=== PATIENT | female | born 1960 | race Caucasian/White ===

== ENCOUNTER 2023-10-15 23:39 | Inpatient (IN) | payer OTHER, SELFPAY ==
[2023-10-15] VITALS (7 sets, daily range): BP systolic 76–115; BP diastolic 32–62; BMI 44.7
--- NOTE | 2023-10-15 21:36 | EDRN ---
Pt with SCHROEDER x 2 days and is concerned she may have another DVT or PE which she last had in October 2020 (R leg and b/l lungs). Pt is taking eliquis as prescribed. Pt fell 3 days ago and sprained her L ankle so she has not been moving as much as she
usually does. No recent air travel or long car rides. Pt feels generalized weakness intermittently. Pt has chronic arthritis pain in b/l legs - no new leg pain or swelling in legs. Pt denies cp, abd pain, n/v, fever/chills/cough, dizziness.
[2023-10-15] MEDS: NSS 500 IV (22:23)
[2023-10-15 22:28] LABS: % Basophils 0.3 % (0-2); % Eosinophils 0.7 % (0-6); % Immature Granulocytes 0.3 % (0-0.5); % Lymphocytes 15.7 % (20.5-51.1); % Monocytes 6.6 % (1.7-9.3); % Neutrophils 76.4 % (42.2-75.2); Absolute Eosinophils 0.1 10^3/uL (0-0.7); Absolute Lymphocytes 1.1 10^3/uL (1.2-3.4); Absolute Monocytes 0.5 10^3/uL (0.1-0.6); Absolute Neutrophils 5.2 10^3/uL (1.4-6.5); Mean Corp Hgb Conc. 32.2 g/dL (33.0-37.0); Mean Corpuscular Hgb 26.6 pg (27.0-31.0); Mean Corpuscular Volume 82.6 fL (81.0-99.0); Mean Platelet Volume 10.3 fL (7.4-10.4); Nucleated Red Blood Cells % 0 %; Platelet Count 191 10^3/uL (130-400); Red Blood Cell Count 1.84 10^6/uL (4.20-5.40); White Blood Cell Count 6.8 10^3/uL (4.8-10.8)
[2023-10-15 22:31] LABS: Hematocrit 15.2 % (37.0-47.0); Hemoglobin 4.9 g/dL (12.0-16.0)
--- NOTE | 2023-10-15 22:38 | ED.GENMED ---
History of Present Illness
General
Chief Complaint: Breathing Problem
Source: patient and family
Time Seen by Provider: 10/15/23 21:10
Travel History
Have you had any contact with someone who has COVID-19?: No
Do you have any symptoms of coronavirus? Fever > 100 degrees, chills, cough, shortness of breath, sore throat, loss of taste or smell, muscle aches, or headache?: No
History of Present Illness
History of Present Illness:
63-year-old female who presents feeling short of breath. The patient also admits to feeling fatigued. The patient states that she was worried because she has a history of pulmonary embolism. She has been on her Eliquis and has not missed any
dosages. The patient states that she has had no other symptoms. She specifically denies chest pain. No palpitations. No melena. No hematochezia. No back pain.
Past History
Past History
ED Past Medical History: HTN, Hypercholesterolemia, NIDDM (befor Gastric bypass) and Other (MICHAEL, Anemia, pulmonary embolism)
ED Past Surgical History: Bowel resection (Gastric bypass) and Gynecological (Total hysterectomy)
Social History
Tobacco: Non-smoker
Alcohol: None
Personal: Single
Living: alone
Employment: Employed
Phy Exam
Physical Exam
Physical Exam:
CONSTITUTIONAL Patient alert and oriented to person, place and time. Pale appearing. Vital signs reviewed.
HEAD atraumatic, normocephalic.
EYES eyelids normal to inspection, Pupils equally round and reactive to light, Extraocular muscles intact, Conjunctiva normal, Sclera normal.
NECK normal range of motion, Trachea midline, no jugular venous distention.
RESPIRATORY CHEST No respiratory distress noted, Chest expansion equal, Bilateral breath sounds clear.
CARDIOVASCULAR regular rate and rhythm, Heart sounds normal.
ABDOMEN abdomen nontender, Bowel sounds normal. No distention.
BACK normal inspection, no obvious deformities
UPPER EXTREMITY range of motion normal, Motor strength normal, no cyanosis, no edema.
LOWER EXTREMITY range of motion normal, Motor strength normal, no cyanosis, no edema.
NEURO Speech normal, No focal motor deficits, Alina coma scale 15, Memory normal, Cranial Nerves intact to screening exam.
SKIN skin warm, dry, and normal in color.
RECTAL EXAM melanotic stool, heme positive
Scores
Heart Failure Risk
Heart Failure Risk Score: Not Applicable
Course
Orders/Labs/Results
Orders:
Orders
10/15/23 19:50
EKG [Electrocardiogram (*1)] Urgent
Reason for Study: Chest Pain
EKG- Treatment ONCE
10/15/23 22:10
Electrocardiogram (*1) Stat
Reason for Study: Other
Other Reason for Exam: chest pain
CR Chest - 2 Views Urgent
Comment:
Reason For Exam: sob
10/15/23 22:11
0.9% Sodium Chloride 500 ml [Nss] 500 ml IV BOLUS
10/15/23 22:21
Complete Blood Count/With Diff Urgent
Comprehensive Metabolic Panel Urgent
10/15/23 22:37
* Blood Bank Products Urgent
Blood Bank Products: *Packed RBC Leuko(PRBC's)
Quantity: 2
Transfuse Today: Yes
Reason: Anemia
IV Insert/Care/Rem.- Treatment PRN
10/15/23 22:38
Pantoprazole 80 mg/100 ml Nss [Protonix] 80 mg in 100 ml IV NOW
Pantoprazole [Protonix IV] 80 mg IV NOW STA
10/15/23 22:39
Type+Screen Urgent
10/15/23 22:57
CT Abd/pel Without Iv Or Oral Urgent
Comment:
Reason For Exam: acute renal failure
10/15/23 23:33
Admit/Transfer Patient As Directed
Co-Sign Provider:
Level of Care: Inpatient admission
Assign to:: ICU
Physician / Group: ayad
Diagnosis: UGIB, LUZMARIA
Reason for Hospitalization: UGIB, LUZMARIA
Expected length of stay greater than two midnights?: Yes
ELOS- Estimated Length of Stay in days: 2
I certify the patient meets the requirements for IP care: Yes
10/15/23 23:34
Code Status As Directed
Resuscitation Status: Full Code
10/15/23 23:35
Curiel Catheter [Catheter- Indwelling] As Directed
Reason for insertion: Acute Kidney Injury
Discontinue Date/Time: 10/18/23 0600
10/15/23 23:36
Sodium Bicarbonate 50 meq IV NOW STA
Intake/ Output As Directed
Frequency: Per unit guidelines
Comment: strict intake and output monitoring
Weight As Directed
Frequency: Daily
10/15/23 23:40
GASTROINTESTINAL CONSULT Routine
Consulting Provider: Fransisco Melgar
Was physician already notified: Yes
NEPHROLOGY CONSULT Routine
Consulting Provider: Any Freeman
Was physician already notified: Yes
10/15/23 23:45
Sterile Water For Inj [Sterile Water For Injection 1000 ml] 1,000 ml Sodium Bicarbonate 150 meq IV 100 mls/hr
Abnormal Lab Results
10/15/23 10/15/23
22:21 22:39
RBC 1.84 L 10^6/uL
(4.20-5.40)
Hgb 4.9 L* g/dL
(12.0-16.0)
Hct 15.2 L* %
(37.0-47.0)
MCH 26.6 L pg
(27.0-31.0)
MCHC 32.2 L g/dL
(33.0-37.0)
RDW 18.0 H %
(11.5-14.5)
Absolute Lymphs (auto) 1.1 L 10^3/uL
(1.2-3.4)
Neutrophils % 76.4 H %
(42.2-75.2)
Lymphocytes % 15.7 L %
(20.5-51.1)
Sodium 134 L mmol/L
(135-145)
Chloride 110 H mmol/L
(98-107)
Carbon Dioxide 11 L* mmol/L
(22-30)
BUN 169 H* mg/dl
(7-17)
Creatinine 9.2 H* mg/dL
(0.6-1.0)
Glucose 124 H mg/dl
(70-99)
Calcium 7.4 L mg/dl
(8.4-10.2)
Total Protein 5.7 L g/dl
(6.3-8.2)
Albumin 3.2 L g/dl
(3.5-5.0)
Crossmatch IS Only See Detail
10/15/23 22:21
10/15/23 22:21
Vital Signs
Initial and Last Documented VS:
Initial Vital Signs
Temp Pulse Resp BP Pulse Ox
97.6 F 80 24 115/61 96
10/15/23 19:47 10/15/23 19:47 10/15/23 19:47 10/15/23 19:47 10/15/23 19:47
Last Documented Vital Signs
Temp Pulse Resp BP Pulse Ox
97.7 F 68 19 113/62 99
10/16/23 00:13 10/16/23 00:13 10/16/23 00:13 10/16/23 00:13 10/16/23 00:13
MDM/Problems Addressed
Differential Diagnosis Includes:
Pulmonary embolism, symptomatic anemia, pneumonia, ACS
MDM/Problems Addressed:
symptomatic anemia. GI BLEED.
*Pulse Oximetry
Patient hypoxic: no
*EKG
Interpreted by ED Provider?: Yes
Interpretation: normal
Rate: normal
Rhythm: sinus
Interval: normal interval
Ischemia: non-specific ST changes
*Asset Protection Greeter Interpretation
Rate: normal
Rhythm: sinus
*Critical Care Note
Total Time (30-74mins, 75-104mins- exclusive of procedures): 75 minutes
Data Reviewed
Review of Other/Old Records Reveals: Labs (Prior labs reviewed. Baseline hemoglobin 9+)
Further Testing Considered But Not Given:
Considered CT but abdomen benign.
Patient Management
Discussion with other providers: Hospitalist and Leather Repairer (Case discussed with gastroenterology)
Escalation/DeEscalation of care consider admission/obs:
61-year-old female presents with shortness of breath. Appeared to be very pale. Found to have heme positive stools that are black. Protonix initiated. Transfused 2 units. Admit
Update Note
Update Note:
Creatinine noted. Case discussed with nephrology who recommends at this time to just correct anemia and reassess. Admit.
ED Attending Note
-
Portions of this chart may have been created with voice recognition software.� Occasional wrong word or��sound alike� substitutions may have occurred due to the inherent limitations of voice recognition software.
Discharge Plan
Departure
Patient Disposition: Admit
Date of Disposition: 10/15/23
Time of Disposition: 22:39
Admit to: IMU
Presentation/result/management discussed w/ accepting MD/DO: Hospitalist
Discharge Problem:
Acute GI bleeding, Symptomatic anemia
Interventions
Interventions:
*Risk Screen - Suicide Last Done: 10/15/23 19:47
*General Assessment Last Done: 10/15/23 21:19
*Neglect/Abuse Screening Last Done: 10/15/23 19:47
ED- Fall Risk Assessment Last Done: 10/15/23 21:35
*ED COVID-19 Vaccine History Last Done: 10/15/23 19:47
ED- Cardiac Assessment Last Done: 10/15/23 21:35
ED- Pulmonary Assessment Last Done: 10/15/23 21:35
[2023-10-15] MEDS: PROTONIX IV 80 MG IV (22:50)
[2023-10-15 22:54] LABS: ALT (SGPT) 18 U/L (0-35); AST (SGOT) 17 U/L (14-36); Albumin 3.2 g/dl (3.5-5.0); Alkaline Phosphatase 96 U/L (38-126); Calcium 7.4 mg/dl (8.4-10.2); Carbon Dioxide 11 mmol/L (22-30); Chloride 110 mmol/L (98-107); Estimated Creatinine Clearance 8 ml/min; Glucose 124 mg/dl (70-99); Potassium 4.4 mmol/L (3.5-5.1); Sodium 134 mmol/L (135-145); Total Bilirubin 0.4 mg/dl (0.2-1.3); Total Protein 5.7 g/dl (6.3-8.2); eGFR 4.44
[2023-10-15] MEDS: PROTONIX 100 IV (22:58)
[2023-10-15 23:01] LABS: Blood Urea Nitrogen 169 mg/dl (7-17)
--- NOTE | 2023-10-15 23:41 | HPS.HSE ---
Family Physician
-
Family Physician: Melanie Messer
Chief Complaint
-
shortness of breath
History of Present Illness
63-year-old female with past medical history of gastric bypass, CKD, hypertension, hypercholesteremia, diabetes, obstructive sleep apnea, saddle pulmonary embolism in 2020 on Eliquis, hypothyroidism, obesity, mood disorder presenting with shortness
of breath and fatigue over the past few days. She was concerned that she was having pulmonary embolism. No chest pain or palpitations. No dizziness or syncope. No blood in the stool or black stool although she does not check. No back pain or
flank pain. No abdominal pain or nausea or vomiting or diarrhea. No fevers or chills. She states that her urine output has been decreasing recently. She denies any new medications recently.
Patient recently had a left ankle sprain a few weeks ago and has been taking naproxen twice a day as well as some ibuprofen as well.
Patient was admitted in December 2022 for renal biopsy. Patient was also found to be anemic and GI was consulted. Patient underwent endoscopy normal examination and small bowel biopsy. Outpatient capsule endoscopy was recommended which patient states
she never had. She states that no definitive diagnosis was discovered on the renal and small bowel biopsy.
She denies smoking or alcohol use.
Medical History
Past Medical History
Past Medical History: Reports Other (gastric bypass, CKD, hypertension, hypercholesteremia, diabetes, obstructive sleep apnea, saddle pulmonary embolism in 2020 on Eliquis, hypothyroidism, obesity, mood disorder)
Past Surgical History: Reports None
Social History
Tobacco: Non-smoker
Alcohol: None
Drug: None
Family History
Family History: Not pertinent
Allergies / Home Medications
Allergies reflects when Allergies were last updated in [employer].
Home Medications with original date entered in [employer]
Allergy/Medication List:
Allergies
Allergy/AdvReac Type Severity Reaction Status Date / Time
pollen Allergy 'usual Uncoded 10/15/23 19:50
allergic
reaction'
Home Medications
cholecalciferol (vitamin D3) 25 mcg (1,000 unit) tablet 1,000 units PO DAILY Supplement 11/05/20
fluticasone propionate 50 mcg/actuation nasal spray,suspension 1 spray intranasal DAILY PRN allergies/congestion 11/05/20
multivitamin with folic acid 400 mcg tablet (Tab-A-Angy) 1 tab PO DAILY Supplement 11/05/20
calcium carbonate 600 mg PO DAILY Supplement 05/29/21
metoprolol succinate 100 mg tablet,extended release 24 hr 150 mg PO DAILY Heart Disease/Condition 05/29/21
apixaban 5 mg tablet (Eliquis) 5 mg PO BID Blood Clot Prevention/Tx 12/09/22
brexpiprazole 2 mg tablet (Rexulti) 2 mg PO DAILY mental health 12/09/22
calcitriol 0.25 mcg capsule 0.25 mcg PO SUMOTU Kidney Disease 12/09/22
cartilage 40 mg-collagen II-boron 5 mg-hyaluronate sod 3.3 mg tablet (Move Free Ultra Triple Action (boron)) 1 tab PO DAILY Supplement 12/09/22
hydrochlorothiazide 25 mg tablet 25 mg PO DAILY Blood Pressure 12/09/22
levothyroxine 50 mcg tablet 50 mcg PO DAILY Thyroid 12/09/22
sodium bicarbonate 650 mg tablet 1,300 mg (2 x 650 mg) PO TID 30 days #180 tabs 12/15/22
amlodipine 5 mg tablet 5 mg PO DAILY 10/15/23
escitalopram oxalate 20 mg tablet (Lexapro) 20 mg PO DAILY 10/15/23
ibuprofen 200 mg tablet (Advil) 400 mg PO Q6HPRN PRN mild pain 10/15/23
naproxen sodium 220 mg tablet (Aleve) 220 mg PO BIDPRN PRN ankle pain 10/15/23
Review of Systems
-
History Source: Patient
A 12 point ROS was completed and negative except as noted: Yes
Constitutional: Reports No Symptoms
EENT: Reports No Symptoms
Respiratory: Reports See HPI
Cardiac: Reports No Symptoms
Abdomen/GI: Reports No Symptoms
: Reports No Symptoms
Musculoskeletal: Reports No Symptoms
Skin: Reports No Symptoms
Neurological: Reports No Symptoms
Endocrine: Reports No Symptoms
Hematologic/Lymphatic: Reports No Symptoms
Psych: Reports No Symptoms
Physical Exam
Vital Signs
Vital Signs
Temp Pulse Resp BP Pulse Ox
97.6 F 67 16 93/58 97
10/15/23 19:47 10/15/23 23:00 10/15/23 23:00 10/15/23 23:00 10/15/23 23:00
Physical Exam
General: Well Developed, Well Nourished and No Apparent Distress
HEENT: NormoCephalic, Moist mucous membranes and Atraumatic
Respiratory: Clear
Cardiac: S1/S2 and Regular Rhythm; No Murmur or Rub
GI: Soft, Non Tender, Non Distended and Normal Bowel Sounds; No Organomegaly
Rectal: Deferred by Provider
Musculoskeletal: No Clubbing, No Cyanosis and No Edema
Skin: No Rash
Neuro: Nonfocal/grossly intact
Laboratory Results
-
10/15/23 22:21
10/15/23 22:21
Laboratory Results
Total Bilirubin 0.4 mg/dl (0.2-1.3) 10/15/23 22:21
AST 17 U/L (14-36) 10/15/23 22:21
ALT 18 U/L (0-35) 10/15/23 22:21
Alkaline Phosphatase 96 U/L (38-126) 10/15/23 22:21
Data Reviewed
-
Lab Data: Labs Reviewed by me
Old Records: Reviewed
Impression/Plan
-
IMPRESSION:
PLAN:
# Symptomatic acute blood loss anemia secondary to upper GI bleed exacerbated by Eliquis/NSAID use
# History of gastric bypass
-Rectal exam showed melena
-Hemoglobin of 4.9 from 9.9 previous
-Hold Eliquis
-2 units of blood
-N.p.o.
-Protonix drip
-GI consulted
# Acute kidney injury on CKD secondary to NSAIDs
# Anion gap metabolic acidosis
# Uremia
-CT abdomen pelvis pending to rule out obstructive uropathy
-Hold hydrochlorothiazide, NSAIDs
-Bicarb pushes followed by drip
-Check I's and O's
-Curiel catheter
-Nephrology consulted
-Continue calcitriol, calcium carbonate
Recent left ankle sprain
-Hold all NSAIDs
Essential hypertension
-Hold amlodipine, hydrochlorothiazide, metoprolol due to systolic blood pressure in the 90s
Hypercholesterolemia
Type 2 diabetes
-Insulin sliding scale
Obstructive sleep apnea
-Continue CPAP
History of saddle pulmonary embolism in 2020
-Hold Eliquis
Hypothyroidism
-Continue levothyroxine
Obesity
Mood disorder
-Continue Lexapro, Rexulti
Full code
DVT prophylaxis�SCDs
N.p.o.
[2023-10-15] MEDS: SODIUM BICARBONATE 50 MEQ IV (23:51)
--- NOTE | 2023-10-15 23:57 | EDRN ---
White card sent for blood
[2023-10-16] VITALS (72 sets, daily range): BP systolic 77–158; BP diastolic 46–99; PULSE 75–88; BMI 43.1
--- NOTE | 2023-10-16 | EDRN ---
Report given to Shireen in ICU
[2023-10-16] MEDS: SODIUM BICARBONATE 1150 MEQ IV ×3 (00:20→23:07)
[2023-10-16] MEDS: PROTONIX 100 IV ×3 (01:59→16:45)
--- NOTE | 2023-10-16 02:15 | PTCARENOTE ---
Received pt from ED RN, Pt is Aox3, VSS, NSR on monitor, denies pain. PRBC infusing, Bicarb gtt and Protonix all infusing. Pt has Curiel draining clear yellow urine. No signs of overt bleeding at this time.
[2023-10-16 06:18] LABS: % Basophils 0.4 % (0-2); % Eosinophils 1.8 % (0-6); % Immature Granulocytes 0.5 % (0-0.5); % Lymphocytes 25.7 % (20.5-51.1); % Monocytes 9.8 % (1.7-9.3); % Neutrophils 61.8 % (42.2-75.2); Absolute Eosinophils 0.1 10^3/uL (0-0.7); Absolute Lymphocytes 1.4 10^3/uL (1.2-3.4); Absolute Monocytes 0.5 10^3/uL (0.1-0.6); Absolute Neutrophils 3.4 10^3/uL (1.4-6.5); Mean Corp Hgb Conc. 32.9 g/dL (33.0-37.0); Mean Corpuscular Hgb 26.8 pg (27.0-31.0); Mean Corpuscular Volume 81.3 fL (81.0-99.0); Nucleated Red Blood Cells % 0 %; Platelet Count 156 10^3/uL (130-400); Red Blood Cell Count 2.09 10^6/uL (4.20-5.40); Red Cell Dist. Width 16.8 % (11.5-14.5); White Blood Cell Count 5.5 10^3/uL (4.8-10.8)
[2023-10-16 06:22] LABS: Hemoglobin 5.6 g/dL (12.0-16.0)
[2023-10-16 06:35] LABS: ALT (SGPT) 15 U/L (0-35); AST (SGOT) 19 U/L (14-36); Albumin 2.6 g/dl (3.5-5.0); Alkaline Phosphatase 71 U/L (38-126); Calcium 6.8 mg/dl (8.4-10.2); Carbon Dioxide 13 mmol/L (22-30); Chloride 112 mmol/L (98-107); Estimated Creatinine Clearance 8 ml/min; Glucose 95 mg/dl (70-99); Magnesium 2.4 mg/dl (1.6-2.3); Phosphorus 8.9 mg/dl (2.5-4.5); Potassium 4.2 mmol/L (3.5-5.1); Sodium 136 mmol/L (135-145); Total Bilirubin 0.6 mg/dl (0.2-1.3); Total Protein 4.9 g/dl (6.3-8.2); eGFR 4.82
--- NOTE | 2023-10-16 06:37 | W.PN.UPDATE ---
Update Note
Progress Note Update
hgb level this am is 5.6 after receiving 2 units of blood. New order placed of another 2 units of blood. and repeating hgb level after administration per protocol.
[2023-10-16 06:46] LABS: Blood Urea Nitrogen 172 mg/dl (7-17)
[2023-10-16] MEDS: SYNTHROID 50 MCG PO (06:48)
[2023-10-16] MEDS: SODIUM BICARBONATE 50 MEQ IV (07:05)
[2023-10-16] MEDS: CALCIUM GLUCONATE 100 IV (07:27)
--- NOTE | 2023-10-16 07:37 | CON.GI ---
Addendum entered and electronically signed by Fransisco Melgar MD 10/16/23 11:00:
Misunderstood ER note, by report stools were black on rectal exam. Again, anemia likely multifactorial with chronic disease, new acute kidney injury, though in the setting of anticoagulation and NSAIDs with black stools GI bleeding is likely also
part of the acute drop, though is hemodynamically stable, no gross bleeding now. Etiologies would likely be from marginal ulcer versus ulcers excluded stomach given NSAID use. Will continue PPI, avoidance of NSAIDs, supportive care, resuscitation,
plan endoscopy Wednesday, sooner if signs of brisk active bleeding.
Original Note:
Consultation
-
Date/Time Consultation Performed: 10/16/23
Performing Provider: Parmjit Melgar MD
Reason for Consultation: anemia
Medical History
Chief Complaint / HPI
Chief Complaint: fatigue
History of Present Illness:
The patient is a 63-year-old female past medical history as noted who presents with fatigue, found to be profoundly anemic with hemoglobin of 4.9. She states that for the past few days she been having increasing fatigue. She has not had any
diarrhea, does not look at her stools, though does not recall seeing any black or bloody stools. She has had no abdominal pain, nausea or vomiting. In the emergency room she was Hemoccult positive by report though no melena. She does take NSAIDs
for recent sprained ankle. She has chronic iron deficiency anemia, with previously negative endoscopy and colonoscopy, thought to be malabsorption post gastric bypass, and does see hematology and gets iron and Procrit regularly. She sees renal
also closely for chronic renal sufficiency of unknown reason, and found on this admission now to have acute kidney injury with creatinine up to 9.2, bicarb down to 11 and BUN of 169. Again, she denies any nausea, vomiting, abdominal pain.
Past Medical History
Past Medical History: Other (gastric bypass, CKD, hypertension, hypercholesteremia, diabetes, obstructive sleep apnea, saddle pulmonary embolism in 2020 on Eliquis, hypothyroidism, obesity, mood disorder)
Past Surgical History: Other (gastric bypass)
Social History
Tobacco: Non-Smoker
Alcohol: None
Family History
Family History: Reviewed & Not Pertinent
Allergies / Home Medications
Allergy/AdvReac Type Severity Reaction Status Date / Time
pollen Allergy 'usual Uncoded 10/15/23 19:50
allergic
reaction'
�Medication �Instructions �Recorded
cholecalciferol (vitamin D3) 25 1,000 units PO DAILY Supplement 11/05/20
mcg (1,000 unit) tablet
fluticasone propionate 50 1 spray intranasal DAILY PRN 11/05/20
mcg/actuation nasal allergies/congestion
spray,suspension
multivitamin with folic acid 400 1 tab PO DAILY Supplement 11/05/20
mcg tablet (Tab-A-Angy)
calcium carbonate 600 mg PO DAILY Supplement 05/29/21
metoprolol succinate 100 mg 150 mg PO DAILY Heart 05/29/21
tablet,extended release 24 hr Disease/Condition
apixaban 5 mg tablet (Eliquis) 5 mg PO BID Blood Clot 12/09/22
Prevention/Tx
brexpiprazole 2 mg tablet (Rexulti) 2 mg PO DAILY mental health 12/09/22
calcitriol 0.25 mcg capsule 0.25 mcg PO SUMOTU Kidney Disease 12/09/22
cartilage 40 mg-collagen II-boron 1 tab PO DAILY Supplement 12/09/22
5 mg-hyaluronate sod 3.3 mg tablet
(Move Free Ultra Triple Action
(boron))
hydrochlorothiazide 25 mg tablet 25 mg PO DAILY Blood Pressure 12/09/22
levothyroxine 50 mcg tablet 50 mcg PO DAILY Thyroid 12/09/22
sodium bicarbonate 650 mg tablet 1,300 mg (2 x 650 mg) PO TID 30 12/15/22
days #180 tabs
amlodipine 5 mg tablet 5 mg PO DAILY 10/15/23
escitalopram oxalate 20 mg tablet 20 mg PO DAILY 10/15/23
(Lexapro)
ibuprofen 200 mg tablet (Advil) 400 mg PO Q6HPRN PRN mild pain 10/15/23
naproxen sodium 220 mg tablet 220 mg PO BIDPRN PRN ankle pain 10/15/23
(Aleve)
Review of Systems
-
All other systems: A 12 pt ROS was Negative except as stated above in HPI
Vital Signs
Temp Pulse Resp BP Pulse Ox
98.6 F 67 14 119/70 96
10/16/23 07:30 10/16/23 06:45 10/16/23 06:45 10/16/23 06:30 10/16/23 07:32
Physical Exam
Exam
General: NAD
HEENT: MMM, anicteric, no lymphadenopathy
Heart: Regular, no murmurs
Lungs: CTA bilaterally
Abdomen: normal bowel sounds, soft, no tenderness, no rebound or guarding, no masses, bruits or ascites
Extremeties: no edema
Skin: no rashes
Results
WBC 5.5 10^3/uL (4.8-10.8) 10/16/23 06:06
Hgb 5.6 g/dL (12.0-16.0) L* 10/16/23 06:06
Hct 17.0 % (37.0-47.0) L* 10/16/23 06:06
MCV 81.3 fL (81.0-99.0) 10/16/23 06:06
Plt Count 156 10^3/uL (130-400) 10/16/23 06:06
Absolute Neuts (auto) 3.4 10^3/uL (1.4-6.5) 10/16/23 06:06
APTT Cancelled 10/16/23 06:06
Sodium 136 mmol/L (135-145) 10/16/23 06:06
Potassium 4.2 mmol/L (3.5-5.1) 10/16/23 06:06
Chloride 112 mmol/L (98-107) H 10/16/23 06:06
Carbon Dioxide 13 mmol/L (22-30) L* 10/16/23 06:06
BUN 172 mg/dl (7-17) H* 10/16/23 06:06
Creatinine 8.6 mg/dL (0.6-1.0) H* 10/16/23 06:06
Calcium 6.8 mg/dl (8.4-10.2) L* 10/16/23 06:06
Total Bilirubin 0.6 mg/dl (0.2-1.3) 10/16/23 06:06
AST 19 U/L (14-36) 10/16/23 06:06
ALT 15 U/L (0-35) 10/16/23 06:06
Alkaline Phosphatase 71 U/L (38-126) 10/16/23 06:06
Diagnostic Image Results:
Prior GI Procedures:
EGD:
01/01
Impression: - Normal esophagus.
- Gastric bypass with a small-sized pouch and intact
staple line. Gastrojejunal anastomosis characterized
by healthy appearing mucosa and an intact staple line
with visible sabino.
- Normal examined jejunum. Biopsied.
Colonoscopy:
06/01
Impression: - One 5 mm polyp in the transverse colon, removed with
a cold snare. Resected and retrieved.
- Diverticulosis in the entire examined colon.
- Medium-sized lipoma at the hepatic flexure.
- Internal hemorrhoids.
Assessment / Plan
-
1. Anemia: With chronic underlying iron deficiency likely from gastric bypass, as well as anemia of chronic disease, following close with hematology for Procrit and iron, now with acute drop also in the setting of acute kidney injury and acidosis.
While she was heme positive there has not been any reports of melena, and doubt brisk active bleeding as the cause of her acute drop. This is likely more related to her acute kidney injury and anemia of chronic disease on top of her chronic anemia.
She is at risk of bleeding given her anatomy and on NSAIDs, though again no signs of brisk active bleeding. At this point we will continue PPI, okay for clear liquids today, and will continue close observation. Nephrology has been consulted, will
continue hydration and supportive care. We discussed avoiding NSAIDs as an outpatient. Pending her clinical course may plan endoscopy once Eliquis is washed out, or sooner if signs of brisk active bleeding.
-
-
Thank you for consultation and allowing me to participate in the patient's care. Please call the professional soccer player GI physician during the after hours with any questions or concerns.
[2023-10-16 07:51] LABS: INR 1.44; PT 17.4 Sec (11.4-14.6)
[2023-10-16 07:52] LABS: APTT 27.8 Sec (23.4-35.0)
[2023-10-16] MEDS: THERAGRAN 1 TABLET PO (08:23)
[2023-10-16] MEDS: VITAMIN D3 (cholecalciferol) 25 MCG PO (08:23)
[2023-10-16] MEDS: OSCAL CAL 500 500 MG PO (08:23)
[2023-10-16] MEDS: LEXAPRO 20 MG PO (08:23)
--- NOTE | 2023-10-16 09:00 | PTCARENOTE ---
Pt received in bed @ 0700. AAOx3. Denying pain, lightheadedness and dizziness. SaO2 95% on room air. Lungs clear to auscultation. Sinus rhythm on electronic device monitor. Trace LE edema. MAP > 65 without pressors. Last BP 132/74. HR 78. Obese belly.
Received NPO but upgraded to Clear Liquid diet by GI. Pt tolerating PO intake without complaint. Bed newby attempted after urge for bowel movement, but only gas. Curiel catheter draining yellow urine. Sterile Water with Sodium Bicarb 150meq infusing @
100 ml/hr. Protonix gtt infusing @ 8 mg/hr. Calcium Gluconate 2gram IV administered for Ca 6.8 on morning labs. 1st of additional 2 units of ordered blood infusing now after Hgb 5.6. No adverse reaction apparent.
--- NOTE | 2023-10-16 10:29 | W.PN.HOSP.TC ---
Today's Communication/Plan
-
Plan liquid diet
IV PPI
Transfused
IV fluids with bicarbonate
Monitor urine output.
Total Critical Care Time__50___ minutes. I was immediately available to the patient and staff. I personally examined, reviewed labs, diagnostic images/reports, interpretations, treatment plans, discussed patient care with other providers and
family or caregivers (if patient is unable to make decisions), entered orders as appropriate and documented the medical record.
Assessment / Plan
Assessment / Plan
Impression:
Presentation with severe fatigue and dyspnea.
Severe symptomatic anemia acute on chronic.
Acute kidney injury on CKD
Severe metabolic acidosis acute on chronic
Hyperkalemia.
Conditions prior to admission.
Anemia of chronic kidney disease with baseline hemoglobin 9�10
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
Submassive PE and right lower extremity DVT 2020 on Eliquis [employer]
Recent ankle sprain treated with NSAIDs
Essential hypertension
Dyslipidemia
Type 2 diabetes by history not on insulin or oral glucose lowering medications [employer]
Obstructive sleep apnea on CPAP at home
Gastric bypass surgery
Obesity with BMI 43
Mood disorder
Plan:
Severe symptomatic acute blood loss anemia with hemoglobin 4.9 upon presentation (baseline chronic anemia with hemoglobin 9-10).
Heme positive stool, although no evidence of brisk blood loss at this point.
Suspect upper GI source of gastrointestinal hemorrhage (PUD, versus gastritis versus DU) secondary to anticoagulation and NSAIDs
Hemodynamically stable.
CT scan of the abdomen pelvis without contrast showed no acute abnormalities.
Hold Eliquis and avoid further NSAIDs
Transfuse packed red blood cells to bring hemoglobin at least to 7�8
IV PPI.
GI evaluation
Clear liquid diet for now
Acute kidney injury.
Severe acute on chronic metabolic acidosis.
Uremia.
Hyperkalemia.
CKD stage IIIb baseline creatinine 3.2. 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
Chronic metabolic acidosis on oral bicarb [employer]
Nonoliguric at this point.
Hyperkalemia has been temporized.
Nephrology consultation.
Continue IV fluids with bicarbonate.
Monitor urine output.
Treat anemia
Avoid NSAIDs
Hold HCTZ
Currently no clear indication for renal replacement therapy, although remains high risk.
History of saddle, submassive pulmonary embolism and right lower extremity DVT in 2020
On Eliquis [employer]. Hold.
Monitor volume and respiratory status closely.
Essential hypertension.
Hold amlodipine, HCTZ, metoprolol given soft blood pressure.
Type 2 diabetes by history
Hemoglobin A1c pending
Insulin sliding scale
Obstructive sleep apnea
Continue CPAP.
Mood disorder
Continue Lexapro and Rexulti.
Full code
Anticipated Discharge: > 48 hours
Subjective/Interval History
-
Date of Service: October 16, 2023
Objective Data
-
Labs:
Laboratory Results
10/15/23 10/16/23 10/16/23
22:21 06:06 07:15
WBC 6.8 5.5
Hgb 4.9 L* 5.6 L*
Hct 15.2 L* 17.0 L*
Plt Count 191 156
PT 17.4 H
INR 1.44
APTT Cancelled 27.8
Sodium 134 L 136
Potassium 4.4 4.2
Chloride 110 H 112 H
Carbon Dioxide 11 L* 13 L*
BUN 169 H* 172 H*
Creatinine 9.2 H* 8.6 H*
Glucose 124 H 95
Calcium 7.4 L 6.8 L*
Total Bilirubin 0.4 0.6
AST 17 19
ALT 18 15
Alkaline Phosphatase 96 71
Vital Signs:
Vital Signs
Temp Pulse Resp BP Pulse Ox
98.7 F 77 20 132/74 95
10/16/23 08:26 10/16/23 09:00 10/16/23 09:00 10/16/23 09:00 10/16/23 09:00
I&O
10/15/23 10/16/23 10/17/23
06:59 06:59 06:59
Intake Total 1660 / 1770 1030 / 1030
Output Total 1250 / 1250 600 / 600
Balance 410 / 520 430 / 430
Physical Exam
-
General: Well Developed and No Apparent Distress
HEENT: Normocephalic, Atraumatic and Moist Mucous Membranes
Respiratory: Clear to Auscultation
Cardiac: Regular Rhythm and S1/S2; Negative Murmur, Rub or Gallop
GI: Soft, Nontender, Nondistended and Normal Bowel Sounds; Negative Organomegaly
Rectal: Deferred by Provider
Genito-urinary: Curiel (Clear yellow urine)
Musculoskeletal: No Clubbing, No Cyanosis and No Edema
Skin: Negative Rash
Neuro: Awake, Alert, Oriented, AO x 3 and Nonfocal/Grossly Intact
--- NOTE | 2023-10-16 10:37 | CON.INTV ---
Consultation
Consultation Request
Date/Time Consultation Requested: 10/16/2023
Date/Time Consultation Performed: 10/16/2023
Requesting Provider: Dr. Goss
Performing Provider: Dr. Torres Blum
Reason for Consultation: Symptomatic anemia/metabolic acidosis/acute kidney injury
Medical History
-
History of Present Illness:
62-year-old woman with past medical history significant for chronic kidney disease, anemia, prior history of bilateral pulmonary embolism and DVT, on chronic anticoagulation, hypothyroidism, hypertension.
Patient was admitted to the hospital in December 2022 for anemia. Underwent EGD. It was recommended that she undergo capsule endoscopy.
Returns to the hospital on 10/15/2023 complaining of shortness of breath and fatigue over the last few days.
Report also decreasing urinary output.
Denies any evidence of bleeding upon evaluation in the emergency room.
Has been taking naproxen for an ankle sprain.
She was found to be severely anemic with severe metabolic acidosis and worsening renal function with BUN greater than 160.
Admitted to the critical care unit for further care.
Past Medical History
Past Medical History: Other
Social History
Tobacco: Non-smoker
Alcohol: None
Drug: None
Family History
Family History: Reviewed & Not Pertinent
Allergies / Home Medications
Allergies
Allergy/AdvReac Type Severity Reaction Status Date / Time
pollen Allergy 'usual Uncoded 10/15/23 19:50
allergic
reaction'
Home Medications
�Medication �Instructions �Recorded �Confirmed �Last Taken �Type
cholecalciferol (vitamin D3) 25 1,000 units PO DAILY Supplement 11/05/20 10/15/23 10/15/23 History
mcg (1,000 unit) tablet
fluticasone propionate 50 1 spray intranasal DAILY PRN 11/05/20 10/15/23 05/22/21 History
mcg/actuation nasal allergies/congestion
spray,suspension
multivitamin with folic acid 400 1 tab PO DAILY Supplement 11/05/20 10/15/23 10/15/23 History
mcg tablet (Tab-A-Angy)
calcium carbonate 600 mg PO DAILY Supplement 05/29/21 10/15/23 10/15/23 History
metoprolol succinate 100 mg 150 mg PO DAILY Heart 05/29/21 10/15/23 10/15/23 History
tablet,extended release 24 hr Disease/Condition
apixaban 5 mg tablet (Eliquis) 5 mg PO BID Blood Clot 12/09/22 10/15/23 10/15/23 History
Prevention/Tx
brexpiprazole 2 mg tablet (Rexulti) 2 mg PO DAILY mental health 12/09/22 10/15/23 10/15/23 History
calcitriol 0.25 mcg capsule 0.25 mcg PO SUMOTU Kidney Disease 12/09/22 10/15/23 10/12/23 History
cartilage 40 mg-collagen II-boron 1 tab PO DAILY Supplement 12/09/22 10/15/23 10/15/23 History
5 mg-hyaluronate sod 3.3 mg tablet
(Move Free Ultra Triple Action
(boron))
hydrochlorothiazide 25 mg tablet 25 mg PO DAILY Blood Pressure 12/09/22 10/15/23 10/15/23 History
levothyroxine 50 mcg tablet 50 mcg PO DAILY Thyroid 12/09/22 10/15/23 10/15/23 History
sodium bicarbonate 650 mg tablet 1,300 mg (2 x 650 mg) PO TID 30 12/15/22 10/15/23 10/15/23 Rx
days #180 tabs
amlodipine 5 mg tablet 5 mg PO DAILY 10/15/23 10/15/23 10/15/23 History
escitalopram oxalate 20 mg tablet 20 mg PO DAILY 10/15/23 10/15/23 10/15/23 History
(Lexapro)
ibuprofen 200 mg tablet (Advil) 400 mg PO Q6HPRN PRN mild pain 10/15/23 10/15/23 Unknown History
naproxen sodium 220 mg tablet 220 mg PO BIDPRN PRN ankle pain 10/15/23 10/15/23 10/14/23 History
(Aleve)
Review of Systems
-
History Source: Patient
All other systems: Negative unless noted
Vitals / Labs / Diagnostic Testing
Vital Signs
Temp Pulse Resp BP Pulse Ox
98.7 F 77 20 132/74 95
10/16/23 08:26 10/16/23 09:00 10/16/23 09:00 10/16/23 09:00 10/16/23 09:00
Lab Data
10/16/23 06:06
10/16/23 06:06
Laboratory Results
10/16/23 10/16/23
06:06 07:15
PT 17.4 H
INR 1.44
APTT Cancelled 27.8
Diagnostic Testing:
Physical Exam
-
HEENT: Normocephalic
Cardiovascular: S1/S2
Respiratory: Clear and Non-Labored Respirations
GI: Soft, Non Distended and Non Tender
Neurology: Awake, Alert, AO x 3 and No Motor Deficits
Skin: Warm
General: Respiratory Distress (n), Comfortable and Other (Able to speak in full sentences)
Assessment
-
Symptomatic severe anemia due to lower GI bleed
Rectal examination showed melena
Likely GI bleed triggered by NSAID use in the setting of Eliquis
CT abdomen pelvis: 10/16/2023 reviewed showed no acute abnormalities.
Acute on chronic renal insufficiency-baseline creatinine around 3
Anion gap metabolic acidosis
Acute on chronic blood loss anemia
Conditions present prior admission:
Chronic anemia
Chronic kidney disease
Recent left ankle sprain taking NSAIDs in the outpatient
Essential hypertension
Hypercholesterolemia
Type 2 diabetes
Obstructive sleep apnea on CPAP
History of saddle pulmonary embolism in 2020 on anticoagulation
Hypothyroidism
Morbid obesity
History of gastric bypass
Mood disorder
-
Echocardiogram 02/12/2021: Report reviewed showed normal LVEF. Mild LVH. Normal right ventricular size and function. Pulmonary artery pressure 33 mmHg.
Assessment and plan:
Critically ill, with symptomatic anemia, hypotensive on admission-evidence of melena.
Worsening renal function with BUN greater than 100.
Metabolic acidosis
-
Continue bicarbonate drip
Follow laboratories later
Discussed with nephrology no plans for dialysis at this point
Monitor electrolytes
CT abdomen pelvis noted without hydronephrosis
Continue to follow urinary output closely, patient is not oliguric. Curiel in place.
-
Lower GI bleed, symptomatic anemia
Status post 1 unit of packed red blood cells
Received fourth unit of packed red blood cells.
Bowel movement with burgundy/melena earlier today. Benign abdominal exam.
Hemodynamically stable so far.
Follow H&H 1 PM.
Continue PPI
GI has evaluated the patient, patient has recently in December 2022 undergone colonoscopy and EGD, there is no signs of brisk bleeding.
Continue to follow H&H.
Eliquis on hold, plan for possible endoscopy once his washout.
-
DVT prophylaxis with SCDs
-
Critical care statement: A total of 31 minutes of critical care time was provided for this patient today. This includes management of unstable vital signs, evaluation of the patient at bedside, reviewing the patient's pertinent medical records
including radiographs, microbiology, laboratory evaluations and discussion with primary team, critical care nursing, and respiratory therapy.
--- NOTE | 2023-10-16 11:29 | W.CON.NEPH ---
Consultation
-
Date/Time Consultation Requested: 10/15/23 2340
Date/Time Consultation Performed: 10/15/23 1000
Requesting Provider: Jennifer Winters
Performing Provider: Any Trejo
Reason for Consultation: LUZMARIA, azotemia, CKD
Medical History
-
Chief Complaint: SOB
History of Present Illness:
63-year-old female with past medical history of CKD 4, baseline cr 3 fibrillary GN on RTX therapy, anemia on procrit from hematology, massive PE in 2020 on Eliquis, gastric bypass, hypertension on Amlodipine, HCTZ, BB, chr met acidosis on po
bicarb therapy, hypercholesteremia, diabetes, obstructive sleep apnea, hypothyroidism, obesity, mood disorder on Lexapro who presenting to ER last night with shortness of breath and fatigue over the past few days. Reportedly pt had ankle aprain few
weeks ago and took NSAIDs for pain control for 1.5week. Slowly she noticed becoming weak and sob which progressed. SHe noted with hb of 4.9, bicarb of 11, cr 9.2, bun 169. NOted atiya in ER and received 2 units of PRBC overnight and hb better to
5.6. No chest pain or palpitations. No dizziness or syncope. No abdominal pain or nausea or vomiting or diarrhea. Notably She states that her urine output has been decreasing recently.
Past Medical History
gastric bypass, CKD4-fbrillary GN, anemia, hypertension, hypercholesteremia, diabetes, obstructive sleep apnea, saddle pulmonary embolism in 2020 on Eliquis, hypothyroidism, obesity, mood disorder,
Social History
Tobacco: Non-Smoker
Alcohol: None
Drug: None
Family History
no ckd
Family History: Not Pertinent
Allergies / Home Medications
Allergy/AdvReac Type Severity Reaction Status Date / Time
pollen Allergy 'usual Uncoded 10/15/23 19:50
allergic
reaction'
�Medication �Instructions �Recorded �Confirmed �Type
cholecalciferol (vitamin D3) 25 1,000 units PO DAILY Supplement 11/05/20 10/15/23 History
mcg (1,000 unit) tablet
fluticasone propionate 50 1 spray intranasal DAILY PRN 11/05/20 10/15/23 History
mcg/actuation nasal allergies/congestion
spray,suspension
multivitamin with folic acid 400 1 tab PO DAILY Supplement 11/05/20 10/15/23 History
mcg tablet (Tab-A-Angy)
calcium carbonate 600 mg PO DAILY Supplement 05/29/21 10/15/23 History
metoprolol succinate 100 mg 150 mg PO DAILY Heart 05/29/21 10/15/23 History
tablet,extended release 24 hr Disease/Condition
apixaban 5 mg tablet (Eliquis) 5 mg PO BID Blood Clot 12/09/22 10/15/23 History
Prevention/Tx
brexpiprazole 2 mg tablet (Rexulti) 2 mg PO DAILY mental health 12/09/22 10/15/23 History
calcitriol 0.25 mcg capsule 0.25 mcg PO SUMOTU Kidney Disease 12/09/22 10/15/23 History
cartilage 40 mg-collagen II-boron 1 tab PO DAILY Supplement 12/09/22 10/15/23 History
5 mg-hyaluronate sod 3.3 mg tablet
(Move Free Ultra Triple Action
(boron))
hydrochlorothiazide 25 mg tablet 25 mg PO DAILY Blood Pressure 12/09/22 10/15/23 History
levothyroxine 50 mcg tablet 50 mcg PO DAILY Thyroid 12/09/22 10/15/23 History
amlodipine 5 mg tablet 5 mg PO DAILY Blood Pressure 10/15/23 10/15/23 History
escitalopram oxalate 20 mg tablet 20 mg PO DAILY Depression 10/15/23 10/15/23 History
(Lexapro)
ibuprofen 200 mg tablet (Advil) 400 mg PO Q6HPRN PRN mild pain 10/15/23 10/15/23 History
naproxen sodium 220 mg tablet 220 mg PO BIDPRN PRN ankle pain 10/15/23 10/15/23 History
(Aleve)
sodium bicarbonate 650 mg tablet 1,300 mg PO TID Electrolyte 10/16/23 10/15/23 History
Repletion
Review of Systems
-
All other complete ROS have been inquired and found negative other than stated in HPI
Physical Exam
Vital Signs
Vital Signs
Temp Pulse Resp BP Pulse Ox
99.4 F 73 20 135/77 95
10/16/23 11:15 10/16/23 11:15 10/16/23 11:15 10/16/23 11:15 10/16/23 09:00
Lab Results
WBC 5.5 10^3/uL (4.8-10.8) 10/16/23 06:06
RBC 2.09 10^6/uL (4.20-5.40) L 10/16/23 06:06
Plt Count 156 10^3/uL (130-400) 10/16/23 06:06
eGFR 4.82 10/16/23 06:06
Phosphorus 8.9 mg/dl (2.5-4.5) H 10/16/23 06:06
Albumin 2.6 g/dl (3.5-5.0) L 10/16/23 06:06
10/15/23 10/16/23 10/16/23
22:21 06:06 07:15
WBC 6.8 5.5
Hgb 4.9 L* 5.6 L*
Hct 15.2 L* 17.0 L*
Plt Count 191 156
PT 17.4 H
INR 1.44
APTT Cancelled 27.8
Sodium 134 L 136
Potassium 4.4 4.2
Chloride 110 H 112 H
Carbon Dioxide 11 L* 13 L*
BUN 169 H* 172 H*
Creatinine 9.2 H* 8.6 H*
Glucose 124 H 95
Calcium 7.4 L 6.8 L*
Total Bilirubin 0.4 0.6
AST 17 19
ALT 18 15
Alkaline Phosphatase [address] with out contrast 10/14:
FINDINGS:
Lower Chest: Lung bases are clear of an acute process. Minimal stranding, scarring or atelectasis. The heart size is mildly enlarged.
Abdomen: The liver is enlarged at 20 cm in greatest length. The patient is status post gastric bypass with Madiha-en-Y procedure. There is fullness at the GE junction, suggesting either esophageal wall thickening and esophagitis or small hiatal
hernia.
The spleen is unremarkable. Unenhanced pancreas and adrenal glands are normal in size and configuration. The gallbladder is within the limits of normal. There is no biliary ductal dilatation.
There is mild parenchymal thinning. The right kidney is slightly more horizontally oriented. No hydronephrosis. No intrarenal calcifications.
The bowel loops are normal caliber. History of previous hernia repair with mesh.
Pelvis: No free fluid or fluid collection. Diverticulosis. No CT evidence for diverticulitis. Urinary bladder well-distended. No wall thickening. Prior hysterectomy. No free air. Appendix within normal limits.
Bones: Moderate degenerative change in the lower thoracic spine with osteophyte formation. Facet arthropathy in the lower lumbar spine.
IMPRESSION:
There is no acute process in the abdomen or pelvis.
Diverticulosis. No CT evidence for diverticulitis. No free fluid or fluid collection. No free air.
Status post gastric bypass.
This report agrees with the report provided by [facility].
Physical Exam
General: Awake, Alert, Oriented, AOx3, No Distress and Nontoxic
HEENT: EOMI and Anicteric
Respiratory: Clear, Normal Excursion and Nonlabored Respirations
Cardiac: S1/S2 and Regular Rate/Rhythm
Abdomen: Soft, Nontender and Nondistended
Musculoskeletal: No Cyanosis and No Edema
Skin: No Rash
Neuro: Nonfocal/Grossly Intact
Psych: Mood/afflect pleasant, Insight/judgement good and Appropriate
Assessment/Plan
-
IMP:
Symptomatic acute blood loss anemia secondary to upper GI bleed exacerbated by Eliquis/NSAID use
History of gastric bypass
Acute kidney injury
CKD4-baseline ~3, fibrillary GN
Azotemia-uremia
Anion gap metabolic acidosis
Recent left ankle sprain
Essential hypertension
Hypercholesterolemia
Type 2 diabetes
Obstructive sleep apnea
History of saddle pulmonary embolism in 2020
Hypothyroidism
Obesity
Mood disorder
SHPTH
Hyperphosphatemia
PLan:
A/w progressive sob, severe anemia from GIB
LUZMARIA with CKD4-possible from NSAIDs induced +anemia
pt aware of not using NSAIDs
check UA, U lytes. non oliguric with sexton , no hydro on CT
severe met acidosis on bicarb gtt, follow labs
sig azotemia likely from GIB,k is normal
If pt has worsening renal function likely initiate HD though no emergent indication today
replace mikael, check I mikael , PTH
BP stable , hold anti HTN meds
d/w pt and nurisng
d/w ICU
CC time spent 35min
Data Reviewed
-
Radiology: Report Reviewed by me
CT Scan: Report Reviewed by me
Labs: Labs Reviewed by me, Discussed with Nurse and Discussed with Patient
[2023-10-16 12:40] LABS: Glucose - Point of Care 134 mg/dl (70-99)
[2023-10-16 14:10] LABS: Glycohemoglobin (HgbA1c) 6.1 % (4.0-5.6)
[2023-10-16 14:31] LABS: Ionized Calcium 0.97 mMOL/L (1.15-1.33)
[2023-10-16 14:34] LABS: Hematocrit 23.4 % (37.0-47.0)
[2023-10-16 14:41] LABS: Hemoglobin 7.7 g/dL (12.0-16.0)
[2023-10-16 14:50] LABS: Calcium 7.3 mg/dl (8.4-10.2); Carbon Dioxide 16 mmol/L (22-30); Chloride 103 mmol/L (98-107); Estimated Creatinine Clearance 9 ml/min; Glucose 141 mg/dl (70-99); Potassium 3.8 mmol/L (3.5-5.1); Sodium 135 mmol/L (135-145); eGFR 4.95
[2023-10-16 15:00] LABS: Urine Albumin Trace (Neg - Trace); Urine Bilirubin Negative (Negative); Urine Character Clear (Clear); Urine Color Yellow; Urine Glucose Negative (Negative); Urine Ketone Trace (Negative); Urine Leukocyte 2+ (Negative); Urine Nitrite Negative (Negative); Urine Occult Blood 4+ (Negative); Urine Urobilinogen Negative (Neg - 1+)
[2023-10-16 15:06] LABS: Urine Sodium 77 mmol/L (30-90)
[2023-10-16 15:07] LABS: Blood Urea Nitrogen 157 mg/dl (7-17)
--- NOTE | 2023-10-16 15:15 | PTCARENOTE ---
Assumed care of pt at 1200 with PRBC infusing. Unit completed (total of 4 units PRBC).
Pt AAOx3. Sinus rhythm. Lunchs CTA. Denies chest pain or SOB.
Ate clear liquid lunch. One dark brown BM on bedpan. Clear yellow urine via sexton.
Protonix and bicarb gtt infusing.
All other assessments unchanged.
[2023-10-16 15:25] LABS: Urine Mucus Few
[2023-10-16 15:26] LABS: Urine Bacteria Moderate (Negative); Urine Red Blood Cell 70-80 /HPF (0-2); Urine White Cell 40-50 /HPF (0-5)
[2023-10-16] MEDS: SODIUM BICARBONATE 1300 MG PO ×2 (16:46→21:48)
[2023-10-16 17:01] LABS: Glucose - Point of Care 128 mg/dl (70-99)
[2023-10-16 22:38] LABS: Glucose - Point of Care 120 mg/dl (70-99)
--- NOTE | 2023-10-16 23:32 | PTCARENOTE ---
Pt Aox3, VSS, NSR on monitor, remains on Protonix gtt and Sodium bicarb gtt. Total of 4PRBC's. Curiel in place draining adequate amounts of urine. Pt offers no complaints at this time, plan of care ongoing.
[2023-10-17] VITALS (43 sets, daily range): BP systolic 98–154; BP diastolic 78–106; PULSE 64–68; BMI 43.7
[2023-10-17] MEDS: PROTONIX 100 IV (02:56)
[2023-10-17 04:27] LABS: % Basophils 0.6 % (0-2); % Eosinophils 3.6 % (0-6); % Immature Granulocytes 0.3 % (0-0.5); % Lymphocytes 19.5 % (20.5-51.1); % Monocytes 10.9 % (1.7-9.3); % Neutrophils 65.1 % (42.2-75.2); Absolute Eosinophils 0.2 10^3/uL (0-0.7); Absolute Lymphocytes 1.3 10^3/uL (1.2-3.4); Absolute Monocytes 0.7 10^3/uL (0.1-0.6); Absolute Neutrophils 4.2 10^3/uL (1.4-6.5); Hematocrit 22.2 % (37.0-47.0); Hemoglobin 7.8 g/dL (12.0-16.0); Mean Corp Hgb Conc. 35.1 g/dL (33.0-37.0); Mean Corpuscular Hgb 27.8 pg (27.0-31.0); Mean Platelet Volume 10.7 fL (7.4-10.4); Nucleated Red Blood Cells % 0 %; Platelet Count 151 10^3/uL (130-400); Red Blood Cell Count 2.81 10^6/uL (4.20-5.40); Red Cell Dist. Width 15.9 % (11.5-14.5); White Blood Cell Count 6.4 10^3/uL (4.8-10.8)
[2023-10-17 05:51] LABS: Vitamin D, 25-OH*** 23.6 ng/mL (30-80)
[2023-10-17 06:02] LABS: Carbon Dioxide 21 mmol/L (22-30); Chloride 101 mmol/L (98-107); Estimated Creatinine Clearance 9 ml/min; Glucose 104 mg/dl (70-99); Potassium 3.6 mmol/L (3.5-5.1); Sodium 137 mmol/L (135-145); eGFR 5.25
[2023-10-17 06:21] LABS: Blood Urea Nitrogen 151 mg/dl (7-17)
[2023-10-17] MEDS: SYNTHROID 50 MCG PO (06:21)
--- NOTE | 2023-10-17 07:10 | PTCARENOTE ---
Pt assessment unchanged. Creatine 8.0 trending down, pt making urine 175-225/hr clear yellow urine. Bicarb and protonix gtt continued.
[2023-10-17] MEDS: OSCAL CAL 500 500 MG PO (07:38)
[2023-10-17] MEDS: LEXAPRO 20 MG PO (07:38)
[2023-10-17] MEDS: THERAGRAN 1 TABLET PO (07:38)
[2023-10-17] MEDS: VITAMIN D3 (cholecalciferol) 25 MCG PO (07:38)
[2023-10-17] MEDS: SODIUM BICARBONATE 1300 MG PO ×3 (07:38→20:26)
[2023-10-17] MEDS: ROCALTROL 0.25 MCG PO (07:42)
--- NOTE | 2023-10-17 07:44 | W.PN.GI.CBS2 ---
Today's Communication / Plan
-
Please see assessment and plan for details.
Assessment / Plan
-
1. Anemia: With chronic underlying iron deficiency likely from gastric bypass, as well as anemia of chronic disease, following close with hematology for Procrit and iron, now with acute drop also in the setting of acute kidney injury and acidosis
with melena likely secondary to peptic ulcer disease in the setting of NSAIDs. She had a brown bowel this morning, responded to transfusion and remained stable without any further signs of brisk bleeding, off anticoagulation. At this point we will
plan EGD tomorrow to rule out marginal ulcer or ulcer in the gastric pouch. We again stressed avoidance of NSAIDs in the future. If EGD tomorrow is negative, then likely source would be from the excluded stomach, and again discussed PPI for 2
months and avoidance of NSAIDs. If there are signs of persistent bleeding and endoscopy is negative then would likely plan colonoscopy and if still persistent bleeding and negative colonoscopy then would need transfer to tertiary center to evaluate
small bowel and excluded stomach.
Subjective
Subjective
Date of Service: October 17, 2023
Patient doing well, brown bowel movement this morning, no vomiting, fever chills or abdominal pain.
Objective
Data Reviewed
Laboratory Data:
Laboratory Results
10/17/23 03:56
10/17/23 03:56
Laboratory Results
PT 17.4 Sec (11.4-14.6) H 10/16/23 07:15
INR 1.44 10/16/23 07:15
APTT 27.8 Sec (23.4-35.0) 10/16/23 07:15
Phosphorus 8.9 mg/dl (2.5-4.5) H 10/16/23 06:06
Magnesium 2.4 mg/dl (1.6-2.3) H 10/16/23 06:06
Total Bilirubin 0.6 mg/dl (0.2-1.3) 10/16/23 06:06
AST 19 U/L (14-36) 10/16/23 06:06
ALT 15 U/L (0-35) 10/16/23 06:06
Alkaline Phosphatase 71 U/L (38-126) 10/16/23 06:06
Vital Signs and I&O:
Vital Signs
Temp Pulse Resp BP Pulse Ox
98.6 F 57 13 137/79 96
10/17/23 07:26 10/17/23 05:15 10/17/23 05:15 10/17/23 05:00 10/17/23 05:15
I&O
10/16/23 10/17/23 10/18/23
06:59 06:59 06:59
Intake Total 1660 / 1770 5160 / 5160
Output Total 1250 / 1250 4160 / 4160
Balance 410 / 520 1000 / 1000
Physical Exam
Physical Exam
General: NAD
Abdomen: normal bowel sounds, soft, no tenderness, no masses or bruits, no ascites
[2023-10-17] MEDS: NSS (PRESERVATIVE FREE) 10 ML IV ×2 (08:30→20:37)
[2023-10-17] MEDS: PROTONIX IV 40 MG IV ×2 (08:31→20:27)
--- NOTE | 2023-10-17 09:38 | W.PN.INTV ---
Today's Communication / Plan
Recommendations
For endoscopy
Follow renal function
Curiel urinary output
Continue PPI
Continue to hold anticoagulation
SCDs
Assessment
-
63-year-old woman with past medical history noted,Including gastric bypass, chronic kidney disease, hypertension, type 2 diabetes, obstructive sleep apnea, saddle pulmonary embolism on anticoagulation since 2020, morbid obesity, came complaining of
shortness of breath over the last few days. Also with decreased urinary output. She was found to be in acute renal insufficiency and also with anemia and heme positive stools/melena-patient was taking naproxen in the outpatient setting for a ankle
sprain.
Symptomatic severe anemia due to lower GI bleed
Rectal examination showed melena
Likely GI bleed triggered by NSAID use in the setting of Eliquis
CT abdomen pelvis: 10/16/2023 reviewed showed no acute abnormalities.
Acute on chronic renal insufficiency-baseline creatinine around 3
Anion gap metabolic acidosis
Acute on chronic blood loss anemia
Conditions present prior admission:
Chronic anemia
Chronic kidney disease
Recent left ankle sprain taking NSAIDs in the outpatient
Essential hypertension
Hypercholesterolemia
Type 2 diabetes
Obstructive sleep apnea on CPAP
History of saddle pulmonary embolism in 2020 on anticoagulation
Hypothyroidism
Morbid obesity
History of gastric bypass
Mood disorder
-
Echocardiogram 02/12/2021: Report reviewed showed normal LVEF. Mild LVH. Normal right ventricular size and function. Pulmonary artery pressure 33 mmHg.
Assessment and plan:
Transferred to the ICU with symptomatic anemia/acute kidney injury/metabolic acidosis.
Status post transfusion
In discussion with renal conservative management for renal insufficiency.
-
Acute kidney injury, nonoliguric. Acute on chronic component.
Patient advised not to take NSAIDs
Creatinine 8/BUN 151 - stable compared to yesterday
Continue to monitor laboratories. Potassium is normal. Acidosis improved.
Continue oral bicarbonate
Discussed with nephrology no plans for dialysis at this point
CT abdomen pelvis noted without hydronephrosis
Continue to follow urinary output closely, patient is not oliguric. Curiel in place.
-
Lower GI bleed, symptomatic anemia-melena. In the setting of anticoagulation as well as NSAID use.
Total 4 units of packed red blood cells transfused. Continue to follow H&H.
Melanotic bowel movements noted.
Hemodynamically stable so far.
Continue PPI
GI has evaluated the patient, patient has recently in December 2022 undergone colonoscopy and EGD, there is no signs of brisk bleeding.
Eliquis on hold
For EGD per gastroenterology.
-
DVT prophylaxis with SCDs
-
Case discussed with nephrology
-
Has remained hemodynamically stable, nontachycardic, benign abdominal exam. Not hyperkalemic. No evidence for arrhythmias.
At this point, we will transfer to telemetry.
Critical care team will sign off.
Subjective Dataa
Subjective Data
Date of Service:
Date of Service: October 17, 2023
Chief Complaint: Soubrette Follow Up (Acute kidney injury/acute on chronic anemia due to blood loss/GI bleed)
Subjective:
Denies nausea or vomiting.
Denies abdominal pain
Denies shortness of breath at rest
Review of Systems
Cardiopulmonary: Dyspnea (none at rest) and Chest Pain (n)
GI: Abdominal Pain (n), Nausea (n) and Vomiting (n)
Neuro: Headache (n) and Dizziness (n)
Objective Data
Data Reviewed
Vital Signs / I&O / Oxygen:
Vital Signs
Temp Pulse Resp BP Pulse Ox
98.6 F 57 13 137/79 96
10/17/23 07:26 10/17/23 05:15 10/17/23 05:15 10/17/23 05:00 10/17/23 07:30
Intake and Output
10/16/23 10/17/2310/17/24
06:59 06:59 06:59
Intake Total 1660 / 1770 5160 / 5270 310 / 310
Output Total 1250 / 1250 4160 / 4335 525 / 525
Balance 410 / 520 1000 / 935 -215 / -215
SaO2 96
Physical Exam
General: Respiratory Distress (n) and Comfortable
HEENT: Normocephalic
Cardiovascular: S1-S2
Respiratory: Clear and Non-Labored Respirations
GI: Soft and Non Distended
Neurology: Awake, Alert and Oriented
Skin: Warm
Labs/Micro/Reports
Lab Data
10/17/23 03:56
10/17/23 03:56
--- NOTE | 2023-10-17 10:37 | PTCARENOTE ---
Pt received in bed @ 0700. AAOx3. Denied pain. SaO2 96% on room air. Sinus rhythm on property assessment monitor. Trace LE edema. Palpable pedal pulses. Obese abdomen. Upgraded to full liquid diet, pt tolerated without discomfort. Large loose brown stool;
heme (+). Protonix gtt discontinued and changed to Protonix 40mg IV BID. Curiel catheter draining yellow urine. Pt asssisted OOB to chair x1.
--- NOTE | 2023-10-17 11:02 | W.PN.HOSP.TC ---
Today's Communication/Plan
-
Hold anticoagulation.
Monitor hemoglobin.
Liquid diet
For EGD tomorrow
Follow renal function and urine output.
Continue Curiel catheter.
Assessment / Plan
Assessment / Plan
Impression:
Presentation with severe fatigue and dyspnea.
Severe symptomatic anemia acute on chronic.
Acute kidney injury on CKD
Severe metabolic acidosis acute on chronic
Hyperkalemia.
Conditions prior to admission.
Anemia of chronic kidney disease with baseline hemoglobin 9�10
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
Recent ankle sprain treated with NSAIDs
Essential hypertension
Dyslipidemia
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
Obstructive sleep apnea on CPAP at home
Gastric bypass surgery
Obesity with BMI 43
Mood disorder
Plan:
Severe symptomatic acute blood loss anemia with hemoglobin 4.9 upon presentation (baseline chronic anemia with hemoglobin 9-10).
Heme positive stool, although no evidence of brisk blood loss at this point.
Suspect upper GI source of gastrointestinal hemorrhage (PUD, versus gastritis versus DU) secondary to anticoagulation and NSAIDs
Hemodynamically stable.
CT scan of the abdomen pelvis without contrast showed no acute abnormalities.
Hold Eliquis and avoid further NSAIDs
Transfused total 4 units of packed red blood cells with hemoglobin improved at 7.8
IV PPI twice daily
GI evaluation
Clear liquid diet for now
EGD on 10/17
Acute kidney injury.
Remains nonoliguric
Severe acute on chronic metabolic acidosis.
Uremia.
Hyperkalemia.
CKD stage IIIb baseline creatinine 3.2. 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
Chronic metabolic acidosis on oral bicarb BUS WASHER
Hyperkalemia has been temporized.
Nephrology consultation.
Has been off IV fluids as per renal
Oral bicarb
Monitor urine output.
Treat anemia
Avoid NSAIDs
Hold HCTZ
Currently no clear indication for renal replacement therapy, although remains high risk.
History of saddle, submassive pulmonary embolism and right lower extremity DVT in 2020
On Eliquis BUS WASHER. Hold.
Monitor volume and respiratory status closely.
Essential hypertension.
Hold amlodipine, HCTZ, metoprolol given soft blood pressure.
Type 2 diabetes by history
Hemoglobin A1c pending
Insulin sliding scale
Obstructive sleep apnea
Continue CPAP.
Mood disorder
Continue Lexapro and Rexulti.
Full code
Anticipated Discharge: > 48 hours
Subjective/Interval History
-
Date of Service: October 17, 2023
Objective Data
-
Labs:
Laboratory Results
10/17/23 10/17/23
03:56 03:56
WBC 6.4
Hgb 7.8 L
Hct 22.2 L
Plt Count 151
Sodium 137
Potassium 3.6
Chloride 101
Carbon Dioxide 21 L
BUN 151 H*
Creatinine 8.0 H*
Glucose 104 H
Calcium 7.0 L 7.0 L
Vital Signs:
Vital Signs
Temp Pulse Resp BP Pulse Ox
98.6 F 70 28 132/81 95
10/17/23 07:26 10/17/23 09:45 10/17/23 09:45 10/17/23 09:30 10/17/23 09:45
I&O
10/16/23 10/17/23 10/18/23
06:59 06:59 06:59
Intake Total 1660 / 1770 5160 / 5270 310 / 310
Output Total 1250 / 1250 4160 / 4335 525 / 525
Balance 410 / 520 1000 / 935 -215 / -215
Physical Exam
-
General: Well Developed and No Apparent Distress
HEENT: Normocephalic, Atraumatic and Moist Mucous Membranes
Respiratory: Clear to Auscultation
Cardiac: Regular Rhythm and S1/S2; Negative Murmur, Rub or Gallop
GI: Soft, Nontender, Nondistended and Normal Bowel Sounds; Negative Organomegaly
Rectal: Deferred by Provider
Genito-urinary: Curiel
Musculoskeletal: No Clubbing, No Cyanosis and No Edema
Skin: Negative Rash
Neuro: Nonfocal/Grossly Intact
--- NOTE | 2023-10-17 12:06 | W.PN.NEPH.PH ---
Today's Communication / Plan
-
observe off IVF
Assessment/Plan
-
IMP:
Symptomatic acute blood loss anemia secondary to upper GI bleed exacerbated by Eliquis/NSAID use
History of gastric bypass
Acute kidney injury
CKD4-baseline ~3, fibrillary GN
Azotemia-uremia
Anion gap metabolic acidosis
Recent left ankle sprain
Essential hypertension
Hypercholesterolemia
Type 2 diabetes
Obstructive sleep apnea
History of saddle pulmonary embolism in 2020
Hypothyroidism
Obesity
Mood disorder
SHPTH
Hyperphosphatemia
PLan:
A/w progressive sob, severe anemia from GIB
LUZMARIA with CKD4-possible from NSAIDs induced +anemia
pt aware of not using NSAIDs
UA ?UTI, pending cx, non oliguric with sexton , no hydro on CT
cr slowly improving to 8
improving met acidosis completed bicarb gtt, cont po bicarb
sig azotemia likely from GIB, improving
replace mikael, pending PTH, vit D low-increase calcitriol to daily
no emergent indication of HD
BP stable , hold anti HTN meds
possible EGD tomorrow per GI
d/w pt and nurisng
d/w ICU
-
-
Date of Service: October 17, 2023
CC / HPI / ROS
-
Chief Complaint:
LUZMARIA with CKD4
History of Present Illness:
cr slowly improving to 8, BUN better to 151
met acidosis better at 21
BP stable
hb better at 7.8
Review of Systems:
no cp or sob
feels well
brown stool
Labs
-
Labs:
WBC 6.4 10^3/uL (4.8-10.8) 10/17/23 03:56
RBC 2.81 10^6/uL (4.20-5.40) L 10/17/23 03:56
Hgb 7.8 g/dL (12.0-16.0) L 10/17/23 03:56
Hct 22.2 % (37.0-47.0) L 10/17/23 03:56
Plt Count 151 10^3/uL (130-400) 10/17/23 03:56
Sodium 137 mmol/L (135-145) 10/17/23 03:56
Potassium 3.6 mmol/L (3.5-5.1) 10/17/23 03:56
Chloride 101 mmol/L (98-107) 10/17/23 03:56
Carbon Dioxide 21 mmol/L (22-30) L 10/17/23 03:56
BUN 151 mg/dl (7-17) H* 10/17/23 03:56
Creatinine 8.0 mg/dL (0.6-1.0) H* 10/17/23 03:56
eGFR 5.25 10/17/23 03:56
Glucose 104 mg/dl (70-99) H 10/17/23 03:56
Calcium 7.0 mg/dl (8.4-10.2) L 10/17/23 03:56
Calcium 7.0 mg/dl (8.4-10.2) L 10/17/23 03:56
Phosphorus 8.9 mg/dl (2.5-4.5) H 10/16/23 06:06
Albumin 2.6 g/dl (3.5-5.0) L 10/16/23 06:06
Physical Exam
-
Vital Signs:
Vital Signs
Temp Pulse Resp BP Pulse Ox
98.6 F 70 28 132/81 95
10/17/23 11:19 10/17/23 09:45 10/17/23 09:45 10/17/23 09:30 10/17/23 09:45
Cardiovascular:: Regular rate and rhythm
Respiratory:: Bilateral: CTA
Lung Excursion:: Normal
Abdomen:: Nontender and Soft
Extremity Edema:: None: Bilateral:
Sexton Catheter: Yes
[2023-10-17 12:18] LABS: Glucose - Point of Care 147 mg/dl (70-99)
[2023-10-17 17:17] LABS: Glucose - Point of Care 129 mg/dl (70-99)
[2023-10-17 21:24] LABS: Glucose - Point of Care 123 mg/dl (70-99)
[2023-10-18] VITALS (14 sets, daily range): BP systolic 114–160; BP diastolic 72–98; PULSE 70; BMI 43.1
[2023-10-18 04:42] LABS: % Basophils 0.8 % (0-2); % Immature Granulocytes 0.3 % (0-0.5); % Lymphocytes 15.8 % (20.5-51.1); % Monocytes 13.1 % (1.7-9.3); Absolute Basophils 0.1 10^3/uL (0-0.2); Absolute Eosinophils 0.2 10^3/uL (0-0.7); Absolute Monocytes 0.8 10^3/uL (0.1-0.6); Absolute Neutrophils 4.3 10^3/uL (1.4-6.5); Hematocrit 24.7 % (37.0-47.0); Hemoglobin 8.4 g/dL (12.0-16.0); Mean Corpuscular Hgb 27.9 pg (27.0-31.0); Mean Corpuscular Volume 82.1 fL (81.0-99.0); Mean Platelet Volume 11.1 fL (7.4-10.4); Nucleated Red Blood Cells % 0 %; Platelet Count 191 10^3/uL (130-400); Red Blood Cell Count 3.01 10^6/uL (4.20-5.40); Red Cell Dist. Width 15.9 % (11.5-14.5); White Blood Cell Count 6.4 10^3/uL (4.8-10.8)
[2023-10-18 05:13] LABS: Calcium 7.1 mg/dl (8.4-10.2); Carbon Dioxide 25 mmol/L (22-30); Chloride 99 mmol/L (98-107); Estimated Creatinine Clearance 9 ml/min; Glucose 119 mg/dl (70-99); Potassium 3.5 mmol/L (3.5-5.1); Sodium 135 mmol/L (135-145)
[2023-10-18 05:23] LABS: Blood Urea Nitrogen 137 mg/dl (7-17)
[2023-10-18] MEDS: SYNTHROID 50 MCG PO (06:02)
--- NOTE | 2023-10-18 06:08 | PTCARENOTE ---
Pt Aox3, VSS, NSR on monitor, denies pain. Adequate urine output over night, Creatinine trending down, Curiel removed this morning per order. NPO since midnight for EGD today.
[2023-10-18] MEDS: SODIUM BICARBONATE 1300 MG PO ×3 (07:38→22:03)
[2023-10-18] MEDS: PROTONIX IV 40 MG IV (07:38)
[2023-10-18] MEDS: NSS (PRESERVATIVE FREE) 10 ML IV (07:38)
--- NOTE | 2023-10-18 09:03 | PTCARENOTE ---
Pt Aox3, VSS, NSR on monitor, denies pain. Met Due To Void in bedside commode, Creatinine trending down. NPO since midnight for EGD today. OOB to Chair.
--- NOTE | 2023-10-18 10:08 | CM ---
CM following re: discharge planning.
Discussed in Rounds, reviewed pt's chart, met with pt.
Pt is a 63 year old female, admitted with primary dx of UGIB, LUZMARIA.
Pt reports she lives alone in a condo, 1 steps to enter, has a cat and pt's sister is taking care of the cat while pt is here. Pt reports she has no children, has supportive sister, brother and a cousin. Pt described herself as independent in all
areas [employer], has C-pap machine and uses it at night. No mobile devices, VN or SNF history.
PCP: Perla Mckeon
Pharmacy: [facility] [place].
D/C plan: home with anticipated no needs. Family to transport at discharge.
CM will follow with discharge plan updates as hospitalization progresses
--- NOTE | 2023-10-18 11:04 | W.PN.HOSP.TC ---
Today's Communication/Plan
-
EGD.
Follow renal function and urine output while off IV fluids
Oral bicarb.
Complaints of diarrhea. Abdominal bloating. Monitor closely. If persistent consider C. difficile/stool cultures.
Assessment / Plan
Assessment / Plan
Impression:
Presentation with severe fatigue and dyspnea.
Severe symptomatic anemia acute on chronic.
Acute kidney injury on CKD
Severe metabolic acidosis acute on chronic
Hyperkalemia.
Conditions prior to admission.
Anemia of chronic kidney disease with baseline hemoglobin 9�10
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
Recent ankle sprain treated with NSAIDs
Essential hypertension
Dyslipidemia
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
Obstructive sleep apnea on CPAP at home
Gastric bypass surgery
Obesity with BMI 43
Mood disorder
Plan:
Severe symptomatic acute blood loss anemia with hemoglobin 4.9 upon presentation (baseline chronic anemia with hemoglobin 9-10).
Heme positive stool, although no evidence of brisk blood loss at this point.
Suspect upper GI source of gastrointestinal hemorrhage (PUD, versus gastritis versus DU) secondary to anticoagulation and NSAIDs
Hemodynamically stable.
CT scan of the abdomen pelvis without contrast showed no acute abnormalities.
Hold Eliquis and avoid further NSAIDs
Transfused total 4 units of packed red blood cells with hemoglobin improved at 7.8
IV PPI twice daily
GI evaluation
Clear liquid diet for now
EGD on 10/17
Acute kidney injury.
Remains nonoliguric
Severe acute on chronic metabolic acidosis.
Uremia.
Hyperkalemia.
CKD stage IIIb baseline creatinine 3.2. 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
Hyperkalemia has been temporized.
Nephrology consultation.
Has been off IV fluids as per renal
Oral bicarb
Monitor urine output.
Treat anemia
Avoid NSAIDs
Hold HCTZ
Currently no clear indication for renal replacement therapy, although remains high risk.
History of saddle, submassive pulmonary embolism and right lower extremity DVT in 2020
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 Hold.
Monitor volume and respiratory status closely.
Essential hypertension.
Hold amlodipine, HCTZ, metoprolol given soft blood pressure.
Type 2 diabetes by history
Hemoglobin A1c pending
Insulin sliding scale
Obstructive sleep apnea
Continue CPAP.
Mood disorder
Continue Lexapro and Rexulti.
Full code
Anticipated Discharge: > 48 hours
Subjective/Interval History
-
Date of Service: October 18, 2023
Objective Data
-
Labs:
Laboratory Results
10/18/23
04:28
WBC 6.4
Hgb 8.4 L
Hct 24.7 L
Plt Count 191 D
Sodium 135
Potassium 3.5
Chloride 99
Carbon Dioxide 25
BUN 137 H*
Creatinine 7.7 H*
Glucose 119 H
Calcium 7.1 L
Vital Signs:
Vital Signs
Temp Pulse Resp BP Pulse Ox
98.9 F 62 17 160/76 94
10/18/23 11:01 10/18/23 08:45 10/18/23 08:45 10/18/23 07:56 10/18/23 08:45
I&O
10/17/23 10/18/23 10/19/23
06:59 06:59 06:59
Intake Total 5160 / 5270 2710 / 2710
Output Total 4160 / 4335 3450 / 3450 300 / 300
Balance 1000 / 935 -740 / -740 -300 / -300
Physical Exam
-
General: Well Developed and No Apparent Distress
HEENT: Normocephalic, Atraumatic and Moist Mucous Membranes
Respiratory: Clear to Auscultation
Cardiac: Regular Rhythm and S1/S2; Negative Murmur, Rub or Gallop
GI: Soft, Nontender, Nondistended and Normal Bowel Sounds; Negative Organomegaly
Rectal: Deferred by Provider
Musculoskeletal: No Clubbing, No Cyanosis and No Edema
Skin: Negative Rash
Neuro: Nonfocal/Grossly Intact
--- NOTE | 2023-10-18 11:18 | PTCARENOTE ---
Pt to GI lab for EGD via stretcher.
[2023-10-18] MEDS: OSCAL CAL 500 500 MG PO (12:04)
[2023-10-18] MEDS: LEXAPRO 20 MG PO (12:04)
[2023-10-18] MEDS: THERAGRAN 1 TABLET PO (12:04)
[2023-10-18] MEDS: VITAMIN D3 (cholecalciferol) 25 MCG PO (12:05)
[2023-10-18] MEDS: ROCALTROL 0.25 MCG PO (12:06)
[2023-10-18 12:14] LABS: Glucose - Point of Care 131 mg/dl (70-99)
--- NOTE | 2023-10-18 15:07 | W.PN.NEPH.PH ---
Today's Communication / Plan
-
off IVF
continue to trend kidney function
oral bicarb
Assessment/Plan
-
IMP:
Symptomatic acute blood loss anemia secondary to upper GI bleed exacerbated by Eliquis/NSAID use
History of gastric bypass
Acute kidney injury
CKD4-baseline ~3, fibrillary GN
Azotemia-uremia
Anion gap metabolic acidosis
Recent left ankle sprain
Essential hypertension
Hypercholesterolemia
Type 2 diabetes
Obstructive sleep apnea
History of saddle pulmonary embolism in 2020
Hypothyroidism
Obesity
Mood disorder
SHPTH
Hyperphosphatemia
PLan:
A/w progressive sob, severe anemia from GIB
LUZMARIA with CKD4-possible from NSAIDs induced +anemia
pt aware of not using NSAIDs
UA ?UTI, pending cx, non oliguric with sexton , no hydro on CT
cr slowly improving to 7.7
improving met acidosis completed bicarb gtt, cont po bicarb
sig azotemia likely from GIB, improving
replace mikael, pending PTH, vit D low-increase calcitriol to daily
no emergent indication of HD
BP stable, hold anti HTN meds
EGD normal, thought to be ulcer in excluded stomach causing bleeding.
d/w pt and nurisng
-
-
Date of Service: October 18, 2023
CC / HPI / ROS
-
Chief Complaint:
LUZMARIA with CKD4
History of Present Illness:
cr slowly improving to 7.7, BUN better to 137
met acidosis better at 25
BP stable
hb better at 8.4
Review of Systems:
no cp or sob
feels well
brown stool
Labs
-
Labs:
WBC 6.4 10^3/uL (4.8-10.8) 10/18/23 04:28
RBC 3.01 10^6/uL (4.20-5.40) L 10/18/23 04:28
Hgb 8.4 g/dL (12.0-16.0) L 10/18/23 04:28
Hct 24.7 % (37.0-47.0) L 10/18/23 04:28
Plt Count 191 10^3/uL (130-400) D 10/18/23 04:28
Sodium 135 mmol/L (135-145) 10/18/23 04:28
Potassium 3.5 mmol/L (3.5-5.1) 10/18/23 04:28
Chloride 99 mmol/L (98-107) 10/18/23 04:28
Carbon Dioxide 25 mmol/L (22-30) 10/18/23 04:28
BUN 137 mg/dl (7-17) H* 10/18/23 04:28
Creatinine 7.7 mg/dL (0.6-1.0) H* 10/18/23 04:28
eGFR 5.50 10/18/23 04:28
Glucose 119 mg/dl (70-99) H 10/18/23 04:28
Calcium 7.1 mg/dl (8.4-10.2) L 10/18/23 04:28
Phosphorus 8.9 mg/dl (2.5-4.5) H 10/16/23 06:06
Albumin 2.6 g/dl (3.5-5.0) L 10/16/23 06:06
Physical Exam
-
Vital Signs:
Vital Signs
Temp Pulse Resp BP Pulse Ox
98.7 F 73 17 140/81 94
10/18/23 15:00 10/18/23 13:45 10/18/23 13:45 10/18/23 12:30 10/18/23 11:00
Cardiovascular:: Regular rate and rhythm
Respiratory:: Bilateral: Coarse
Lung Excursion:: Normal
Abdomen:: Distended
Bowel Sounds:: Normal
Extremity Edema:: None: Bilateral:
Sexton Catheter: Yes
--- NOTE | 2023-10-18 16:50 | PTCARENOTE ---
Pt to wheelchair and escorted to [facility].
--- NOTE | 2023-10-18 17:15 | PTCARENOTE ---
Received pt from ICU,Report from Dionicio RN.Assessment unchanged, Pt VSS 97% on RA. NSR on tele, Pt oriented to room, call evans within reach, plan of care ongoing.
[2023-10-18] MEDS: PROTONIX 40 MG PO (20:03)
[2023-10-19 03:27] VITALS: BP 132/73
[2023-10-19] MEDS: SYNTHROID 50 MCG PO (05:41)
[2023-10-19 06:00] VITALS: BMI 41.7
[2023-10-19 06:04] LABS: % Basophils 0.7 % (0-2); % Eosinophils 3.4 % (0-6); % Immature Granulocytes 0.5 % (0-0.5); % Lymphocytes 18.3 % (20.5-51.1); % Monocytes 11.6 % (1.7-9.3); % Neutrophils 65.5 % (42.2-75.2); Absolute Basophils 0.1 10^3/uL (0-0.2); Absolute Eosinophils 0.3 10^3/uL (0-0.7); Absolute Lymphocytes 1.4 10^3/uL (1.2-3.4); Absolute Monocytes 0.9 10^3/uL (0.1-0.6); Absolute Neutrophils 4.9 10^3/uL (1.4-6.5); Hematocrit 27.6 % (37.0-47.0); Mean Corp Hgb Conc. 32.6 g/dL (33.0-37.0); Mean Corpuscular Hgb 27.2 pg (27.0-31.0); Mean Corpuscular Volume 83.4 fL (81.0-99.0); Mean Platelet Volume 10.9 fL (7.4-10.4); Nucleated Red Blood Cells % 0 %; Platelet Count 221 10^3/uL (130-400); Red Blood Cell Count 3.31 10^6/uL (4.20-5.40); White Blood Cell Count 7.4 10^3/uL (4.8-10.8)
[2023-10-19 06:37] LABS: Blood Urea Nitrogen 118 mg/dl (7-17); Calcium 7.4 mg/dl (8.4-10.2); Carbon Dioxide 27 mmol/L (22-30); Chloride 99 mmol/L (98-107); Estimated Creatinine Clearance 8 ml/min; Glucose 115 mg/dl (70-99); Potassium 3.8 mmol/L (3.5-5.1); Sodium 137 mmol/L (135-145); eGFR 4.88
[2023-10-19 07:20] VITALS: BP 170/86
[2023-10-19] MEDS: SODIUM BICARBONATE 1300 MG PO ×3 (08:11→21:48)
[2023-10-19] MEDS: PROTONIX 40 MG PO ×2 (08:14→21:49)
[2023-10-19] MEDS: LEXAPRO 20 MG PO (08:14)
[2023-10-19] MEDS: OSCAL CAL 500 500 MG PO (08:14)
[2023-10-19] MEDS: VITAMIN D3 (cholecalciferol) 25 MCG PO (08:14)
[2023-10-19] MEDS: THERAGRAN 1 TABLET PO (08:14)
[2023-10-19] MEDS: ROCALTROL 0.25 MCG PO (08:14)
[2023-10-19 11:05] VITALS: BP 171/101
--- NOTE | 2023-10-19 11:23 | W.PN.GI.CBS2 ---
Today's Communication / Plan
-
Likely bleeding from ulcer in excluded stomach given NSIAD use.
stool now brown and hbg 9
tolerating diet
PPI BID x 8 week
sent message to arrange GI follow up in office follow up 4-6 weeks
left slip for repeat H/H 2 weeks
NSAID avoidance
resume Anticoagulation in 6 days -- encourage ambulation with hx DVT
If has further bleeding then colonoscopy, and if still negative then transfer to tertiary center to eval excluded stomach and small
bowel. If signs of brisk bleeding then bleeding scan given LUZMARIA.
stable from GI for discharge but still with some HTN this am with BP up to 171/101
Assessment / Plan
-
The patient is a 63-year-old female past medical history PE on Eliquis, gastric bypass, CKD, HTN, DM, sleep apnea, obesity, hypothyroidism with profound anemia with hemoglobin of 4.9. She states that for the past few days she been having increasing
fatigue and heme + stool in ER. + recent NSAID use for ankly injury
-heme + anemia
-recent NSAID use
-gastric bypass
-CKD
other medical problems;
-HTN
-DM
-sleep apnea
-obesity
-hypothyroidism
PLAN:
Likely bleeding from ulcer in excluded stomach given NSIAD use.
stool now brown and hbg 9
tolerating diet
PPI BID x 8 week
sent message to arrange GI follow up in office follow up 4-6 weeks
left slip for repeat H/H 2 weeks
NSAID avoidance
resume Anticoagulation in 6 days -- encourage ambulation with hx DVT
If has further bleeding then colonoscopy, and if still negative then transfer to tertiary center to eval excluded stomach and small
bowel. If signs of brisk bleeding then bleeding scan given LUZMARIA.
stable from GI for discharge but still with some HTN this am with BP up to 171/101
.
Subjective
Subjective
Date of Service: October 19, 2023
10/18 brown stool on ADA diet
Objective
Data Reviewed
Laboratory Data:
Laboratory Results
10/19/23 05:42
10/19/23 05:42
Laboratory Results
PT 17.4 Sec (11.4-14.6) H 10/16/23 07:15
INR 1.44 10/16/23 07:15
APTT 27.8 Sec (23.4-35.0) 10/16/23 07:15
Phosphorus 8.9 mg/dl (2.5-4.5) H 10/16/23 06:06
Magnesium 2.4 mg/dl (1.6-2.3) H 10/16/23 06:06
Total Bilirubin 0.6 mg/dl (0.2-1.3) 10/16/23 06:06
AST 19 U/L (14-36) 10/16/23 06:06
ALT 15 U/L (0-35) 10/16/23 06:06
Alkaline Phosphatase 71 U/L (38-126) 10/16/23 06:06
Vital Signs and I&O:
Vital Signs
Temp Pulse Resp BP Pulse Ox
97.8 F 66 18 170/86 98
10/19/23 07:20 10/19/23 07:20 10/19/23 07:20 10/19/23 07:20 10/19/23 07:20
I&O
10/18/23 10/19/23 10/20/23
06:59 06:59 06:59
Intake Total 2710 / 2710 1240 / 1240
Output Total 3450 / 3450 1775 / 1775
Balance -740 / -740 -535 / -535
Physical Exam
Physical Exam
HEENT: Anicteric and Moist mucous membranes
Cardiology: Normal Sinus Rhythm
Pulmonary: Clear
GI: Soft, Non Distended and Non Tender
Extremities: No Edema
Neuro: Non Focal
--- NOTE | 2023-10-19 13:43 | W.PN.NEPH.PH ---
Today's Communication / Plan
-
- Cr worsening, CTM
Assessment/Plan
-
IMP:
Symptomatic acute blood loss anemia secondary to upper GI bleed exacerbated by Eliquis/NSAID use
History of gastric bypass
Acute kidney injury
CKD4-baseline ~3, fibrillary GN
Azotemia-uremia
Anion gap metabolic acidosis
Recent left ankle sprain
Essential hypertension
Hypercholesterolemia
Type 2 diabetes
Obstructive sleep apnea
History of saddle pulmonary embolism in 2020
Hypothyroidism
Obesity
Mood disorder
SHPTH
Hyperphosphatemia
PLan:
A/w progressive sob, severe anemia from GIB
LUZMARIA with CKD4-possible from NSAIDs induced +anemia
pt aware of not using NSAIDs
UA ?UTI, pending cx, non oliguric with sexton , no hydro on CT
cr was slowly improving but again increased to 8.5 today
improving met acidosis, s/p gtt, cont po bicarb
sig azotemia likely from GIB, improving
replace mikael, pending PTH, vit D low-increase calcitriol to daily
no emergent indication of HD, but if Cr continues at this level, patient will likely need to be initiated
BP stable, hold anti HTN meds
EGD normal, thought to be ulcer in excluded stomach causing bleeding.
d/w patient and primary team
10/19: discussed HD initiation at length. patient would be amenable if HD is absolutely needed. we will continue to monitor for one day and if still no improvement, likely will need TDC placement and initation
-
-
Date of Service: October 19, 2023
CC / HPI / ROS
-
Chief Complaint:
LUZMARIA with CKD4
History of Present Illness:
cr worsening to 8.5, BUN better to 118
met acidosis better at 27
BP stable
hb better at 9
Review of Systems:
no cp or sob
feels well
brown stool
Labs
-
Labs:
WBC 7.4 10^3/uL (4.8-10.8) 10/19/23 05:42
RBC 3.31 10^6/uL (4.20-5.40) L 10/19/23 05:42
Hgb 9.0 g/dL (12.0-16.0) L 10/19/23 05:42
Hct 27.6 % (37.0-47.0) L 10/19/23 05:42
Plt Count 221 10^3/uL (130-400) 10/19/23 05:42
Sodium 137 mmol/L (135-145) 10/19/23 05:42
Potassium 3.8 mmol/L (3.5-5.1) 10/19/23 05:42
Chloride 99 mmol/L (98-107) 10/19/23 05:42
Carbon Dioxide 27 mmol/L (22-30) 10/19/23 05:42
BUN 118 mg/dl (7-17) H* 10/19/23 05:42
Creatinine 8.5 mg/dL (0.6-1.0) H* 10/19/23 05:42
eGFR 4.88 10/19/23 05:42
Glucose 115 mg/dl (70-99) H 10/19/23 05:42
Calcium 7.4 mg/dl (8.4-10.2) L 10/19/23 05:42
Phosphorus 8.9 mg/dl (2.5-4.5) H 10/16/23 06:06
Albumin 2.6 g/dl (3.5-5.0) L 10/16/23 06:06
Physical Exam
-
Vital Signs:
Vital Signs
Temp Pulse Resp BP Pulse Ox
98.7 F 82 16 171/101 97
10/19/23 11:05 10/19/23 11:05 10/19/23 11:05 10/19/23 11:05 10/19/23 11:05
Cardiovascular:: Regular rate and rhythm
Respiratory:: Bilateral: CTA
Lung Excursion:: Normal
Abdomen:: Nontender and Soft
Bowel Sounds:: Normal
Extremity Edema:: +2: Bilateral:
Sexton Catheter: No
--- NOTE | 2023-10-19 14:19 | CM ---
Chart reviewed and plan is to home with family supports when stable.
Plan; Home no needs.
[2023-10-19 15:15] VITALS: BP 162/93
--- NOTE | 2023-10-19 15:59 | W.PN.HOSP.TC ---
Today's Communication/Plan
-
Advance diet
Monitor hemoglobin while off anticoagulation
Follow renal function.
Assessment / Plan
Assessment / Plan
Impression:
Presentation with severe fatigue and dyspnea.
Severe symptomatic anemia acute on chronic.
Acute kidney injury on CKD
Severe metabolic acidosis acute on chronic
Hyperkalemia.
Conditions prior to admission.
Anemia of chronic kidney disease with baseline hemoglobin 9�10
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
Recent ankle sprain treated with NSAIDs
Essential hypertension
Dyslipidemia
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
Obstructive sleep apnea on CPAP at home
Gastric bypass surgery
Obesity with BMI 43
Mood disorder
Plan:
Severe symptomatic acute blood loss anemia with hemoglobin 4.9 upon presentation (baseline chronic anemia with hemoglobin 9-10).
Heme positive stool, although no evidence of brisk blood loss at this point.
Suspect upper GI source of gastrointestinal hemorrhage (PUD, versus gastritis versus DU) secondary to anticoagulation and NSAIDs
Hemodynamically stable.
CT scan of the abdomen pelvis without contrast showed no acute abnormalities.
Hold Eliquis and avoid further NSAIDs
Transfused total 4 units of packed red blood cells with hemoglobin improved at 7.8
IV PPI twice daily
GI evaluation
EGD on 10/17 with Madiha-en-Y bypass and no ulcers.
Diet has been advanced
Plan is to hold anticoagulation for 7 days
If rebleeds may require further evaluation with colonoscopy.
Acute kidney injury.
Remains nonoliguric
Severe acute on chronic metabolic acidosis.
Uremia.
Hyperkalemia.
CKD stage IIIb baseline creatinine 3.2. 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
Hyperkalemia has been temporized.
Nephrology consultation.
Has been off IV fluids as per renal
Oral bicarb
Monitor urine output.
Treat anemia
Avoid NSAIDs
Hold HCTZ
Remains nonoliguric, although with persistent elevated creatinine and acidemia. Follow BMP closely. May need initiation of renal replacement therapy.
History of saddle, submassive pulmonary embolism and right lower extremity DVT in 2020
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
Monitor volume and respiratory status closely.
Essential hypertension.
Hold amlodipine, HCTZ, metoprolol given soft blood pressure.
Type 2 diabetes by history
Hemoglobin A1c pending
Insulin sliding scale
Obstructive sleep apnea
Continue CPAP.
Mood disorder
Continue Lexapro and Rexulti.
Full code
Anticipated Discharge: > 48 hours
Subjective/Interval History
-
Date of Service: October 19, 2023
Objective Data
-
Labs:
Laboratory Results
10/19/23
05:42
WBC 7.4
Hgb 9.0 L
Hct 27.6 L
Plt Count 221
Sodium 137
Potassium 3.8
Chloride 99
Carbon Dioxide 27
BUN 118 H*
Creatinine 8.5 H*
Glucose 115 H
Calcium 7.4 L
Vital Signs:
Vital Signs
Temp Pulse Resp BP Pulse Ox
98.4 F 77 18 162/93 96
10/19/23 15:15 10/19/23 15:15 10/19/23 15:15 10/19/23 15:15 10/19/23 15:15
I&O
10/18/23 10/19/23 10/20/23
06:59 06:59 06:59
Intake Total 2710 / 2710 1240 / 1240
Output Total 3450 / 3450 1775 / 1775
Balance -740 / -740 -535 / -535
Physical Exam
-
General: Well Developed and No Apparent Distress
HEENT: Normocephalic, Atraumatic and Moist Mucous Membranes
Respiratory: Clear to Auscultation
Cardiac: Regular Rhythm and S1/S2; Negative Murmur, Rub or Gallop
GI: Soft, Nontender, Nondistended and Normal Bowel Sounds; Negative Organomegaly
Rectal: Deferred by Provider
Musculoskeletal: No Clubbing, No Cyanosis and No Edema
Skin: Negative Rash
Neuro: Nonfocal/Grossly Intact
--- NOTE | 2023-10-19 18:12 | PTCARENOTE ---
Patient with elevated blood pressures throughout shift. Dr. Goss made aware. No new orders @ this time.
[2023-10-19 19:43] VITALS: BP 159/81
[2023-10-19 23:49] VITALS: BP 151/83
[2023-10-20 03:47] VITALS: BP 159/92
[2023-10-20 06:00] VITALS: BMI 41.5
[2023-10-20] MEDS: SYNTHROID 50 MCG PO (06:02)
[2023-10-20 07:30] VITALS: BP 144/80
[2023-10-20 08:18] LABS: % Basophils 0.7 % (0-2); % Eosinophils 3.5 % (0-6); % Immature Granulocytes 0.2 % (0-0.5); % Lymphocytes 15.9 % (20.5-51.1); % Monocytes 11.5 % (1.7-9.3); % Neutrophils 68.2 % (42.2-75.2); Absolute Eosinophils 0.2 10^3/uL (0-0.7); Absolute Lymphocytes 0.9 10^3/uL (1.2-3.4); Absolute Monocytes 0.7 10^3/uL (0.1-0.6); Absolute Neutrophils 3.9 10^3/uL (1.4-6.5); Hematocrit 27.4 % (37.0-47.0); Hemoglobin 8.7 g/dL (12.0-16.0); Mean Corp Hgb Conc. 31.8 g/dL (33.0-37.0); Mean Corpuscular Hgb 27.5 pg (27.0-31.0); Mean Corpuscular Volume 86.7 fL (81.0-99.0); Mean Platelet Volume 10.9 fL (7.4-10.4); Nucleated Red Blood Cells % 0 %; Platelet Count 228 10^3/uL (130-400); Red Blood Cell Count 3.16 10^6/uL (4.20-5.40); Red Cell Dist. Width 15.8 % (11.5-14.5); White Blood Cell Count 5.7 10^3/uL (4.8-10.8)
[2023-10-20 08:46] LABS: Blood Urea Nitrogen 114 mg/dl (7-17); Calcium 7.5 mg/dl (8.4-10.2); Carbon Dioxide 30 mmol/L (22-30); Chloride 95 mmol/L (98-107); Estimated Creatinine Clearance 8 ml/min; Glucose 118 mg/dl (70-99); Potassium 3.8 mmol/L (3.5-5.1); Sodium 137 mmol/L (135-145); eGFR 5.03
[2023-10-20] MEDS: PROTONIX 40 MG PO ×2 (09:48→21:00)
[2023-10-20] MEDS: LEXAPRO 20 MG PO (09:48)
[2023-10-20] MEDS: OSCAL CAL 500 500 MG PO (09:48)
[2023-10-20] MEDS: VITAMIN D3 (cholecalciferol) 25 MCG PO (09:48)
[2023-10-20] MEDS: THERAGRAN 1 TABLET PO (09:48)
[2023-10-20] MEDS: SODIUM BICARBONATE 1300 MG PO ×3 (09:48→21:00)
[2023-10-20 10:44] LABS: Intact PTH 531.2 pg/ml (13.6-85.8)
[2023-10-20 11:00] VITALS: BP 160/82
--- NOTE | 2023-10-20 11:21 | W.PN.UPDATE ---
Update Note
Progress Note Update
late entry from 10/19/23 1300 seen by [employer] only 10/19/23 update for billing purposes. Will sign off call with questions.
--- NOTE | 2023-10-20 11:43 | W.PN.HOSP.TC ---
Today's Communication/Plan
-
Amlodipine and metoprolol restarted
Hemodialysis after nephrology evaluation
Assessment / Plan
Assessment / Plan
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
decreased urinary output. She was found to be in acute renal insufficiency and also with anemia and heme positive stools/melena.Patient was on naproxen for ankle sprain.
Impression:
Presentation with severe fatigue and dyspnea.
Severe symptomatic anemia acute on chronic.
Acute kidney injury on CKD
Severe metabolic acidosis acute on chronic
Hyperkalemia.
Conditions prior to admission.
Anemia of chronic kidney disease with baseline hemoglobin 9�10
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
Recent ankle sprain treated with NSAIDs
Essential hypertension
Dyslipidemia
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
Obstructive sleep apnea on CPAP at home
Gastric bypass surgery
Obesity with BMI 43
Mood disorder
Plan:
# Anemia
Severe symptomatic acute blood loss anemia with hemoglobin 4.9 upon presentation (baseline chronic anemia with hemoglobin 9-10).
Heme positive stool, no evidence of brisk blood loss
Possible upper GI source of gastrointestinal hemorrhage (PUD, versus gastritis versus DU) secondary to anticoagulation and NSAIDs
Hemodynamically stable.
CT scan of the abdomen pelvis without contrast showed no acute abnormalities.
Hold Eliquis and avoid further NSAIDs
Transfused total 4 units of packed red blood cells with hemoglobin improved at 7.8
IV PPI twice daily
GI evaluation
EGD on 10/17 with Madiha-en-Y bypass and no ulcers.
Advance diet as tolerated
Plan is to hold anticoagulation for 7 days
If rebleeds may require further evaluation with colonoscopy.
#Acute kidney injury.
Remains nonoliguric
Severe acute on chronic metabolic acidosis.
Uremia.
CKD stage IIIb baseline creatinine 3.2. 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
Hyperkalemia has been temporized.
Nephrology consultation.
Has been off IV fluids as per renal
Continue oral bicarb
Monitor urine output.
Avoid NSAIDs
Hold HCTZ
Remains nonoliguric, although with persistent elevated creatinine and acidemia. Follow BMP closely.
May need hemodialysis, pending nephrology evaluation
#History of saddle, submassive pulmonary embolism and right lower extremity DVT in 2020
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
Monitor volume and respiratory status closely.
#Essential hypertension.
Amlodipine and metoprolol restarted
#Type 2 diabetes
Hemoglobin A1c pending
Insulin sliding scale
#Obstructive sleep apnea
Continue CPAP.
#Mood disorder
Continue Lexapro and Rexulti.
Full code
Anticipated Discharge: > 48 hours
Subjective/Interval History
-
Date of Service: October 20, 2023
Objective Data
-
Labs:
Laboratory Results
10/20/23
07:33
WBC 5.7
Hgb 8.7 L
Hct 27.4 L
Plt Count 228
Sodium 137
Potassium 3.8
Chloride 95 L
Carbon Dioxide 30
BUN 114 H*
Creatinine 8.3 H*
Glucose 118 H
Calcium 7.5 L
Vital Signs:
Vital Signs
Temp Pulse Resp BP Pulse Ox
98.1 F 67 20 144/80 96
10/20/23 07:30 10/20/23 07:30 10/20/23 07:30 10/20/23 07:30 10/20/23 07:30
I&O
10/19/23 10/20/23 10/21/23
06:59 06:59 06:59
Intake Total 1240 / 1240 960 / 960 480 / 480
Output Total 1775 / 1775 1500 / 1500 2100 / 2100
Balance -535 / -535 -540 / -540 -1620 / -1620
Physical Exam
-
General: Well Developed and Well Nourished
HEENT: Normocephalic and Atraumatic
Respiratory: Clear to Auscultation
Cardiac: Regular Rhythm and S1/S2
Musculoskeletal: Other (2+ extremity edema)
[2023-10-20] MEDS: NORVASC 5 MG PO (15:20)
[2023-10-20] MEDS: TOPROL XL 150 MG PO (15:20)
--- NOTE | 2023-10-20 17:08 | W.PN.HOSP.TC ---
Today's Communication/Plan
-
Monitor hemoglobin
Has been off anticoagulation.
Reinstate antihypertensive regimen with amlodipine and metoprolol.
Pending further evaluation for possible renal replacement therapy.
Assessment / Plan
Assessment / Plan
Impression:
Presentation with severe fatigue and dyspnea.
Severe symptomatic anemia acute on chronic.
Acute kidney injury on CKD
Severe metabolic acidosis acute on chronic
Hyperkalemia.
Conditions prior to admission.
Anemia of chronic kidney disease with baseline hemoglobin 9�10
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
Recent ankle sprain treated with NSAIDs
Essential hypertension
Dyslipidemia
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
Obstructive sleep apnea on CPAP at home
Gastric bypass surgery
Obesity with BMI 43
Mood disorder
Plan:
Severe symptomatic acute blood loss anemia with hemoglobin 4.9 upon presentation (baseline chronic anemia with hemoglobin 9-10).
Heme positive stool, although no evidence of brisk blood loss at this point.
Suspect upper GI source of gastrointestinal hemorrhage (PUD, versus gastritis versus DU) secondary to anticoagulation and NSAIDs
Hemodynamically stable.
CT scan of the abdomen pelvis without contrast showed no acute abnormalities.
Hold Eliquis and avoid further NSAIDs
Transfused total 4 units of packed red blood cells with hemoglobin improved at 7.8
IV PPI twice daily
GI evaluation
EGD on 10/17 with Madiha-en-Y bypass and no ulcers.
Diet has been advanced
Plan is to hold anticoagulation for 7 days
If rebleeds may require further evaluation with colonoscopy.
Acute kidney injury.
Remains nonoliguric
Severe acute on chronic metabolic acidosis.
Uremia.
Hyperkalemia.
CKD stage IIIb baseline creatinine 3.2. 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
Hyperkalemia has been temporized.
Nephrology consultation.
Has been off IV fluids as per renal
Oral bicarb
Monitor urine output.
Treat anemia
Avoid NSAIDs
Hold HCTZ
Remains nonoliguric, although with persistent elevated creatinine and acidemia. Follow BMP closely. May need initiation of renal replacement therapy.
History of saddle, submassive pulmonary embolism and right lower extremity DVT in 2020
On Eliquis [employer]ER [employer]. Hold.
Monitor volume and respiratory status closely.
Essential hypertension.
Resume metoprolol amlodipine.
Hold HCTZ
Type 2 diabetes by history
Hemoglobin A1c 6.1
Insulin sliding scale
Obstructive sleep apnea
Continue CPAP.
Mood disorder
Continue Lexapro and Rexulti.
Full code
Anticipated Discharge: > 48 hours
Subjective/Interval History
-
Date of Service: October 20, 2023
Objective Data
-
Labs:
Laboratory Results
10/20/23
07:33
WBC 5.7
Hgb 8.7 L
Hct 27.4 L
Plt Count 228
Sodium 137
Potassium 3.8
Chloride 95 L
Carbon Dioxide 30
BUN 114 H*
Creatinine 8.3 H*
Glucose 118 H
Calcium 7.5 L
Vital Signs:
Vital Signs
Temp Pulse Resp BP Pulse Ox
98.4 F 70 18 160/82 95
10/20/23 11:00 10/20/23 11:00 10/20/23 11:00 10/20/23 11:00 10/20/23 11:00
I&O
10/19/23 10/20/23 10/21/23
06:59 06:59 06:59
Intake Total 1240 / 1240 960 / 960 480 / 480
Output Total 1775 / 1775 1500 / 1500 2099 / 2099
Balance -535 / -535 -540 / -540 -1620 / -1620
Physical Exam
-
General: Well Developed and No Apparent Distress
HEENT: Normocephalic, Atraumatic and Moist Mucous Membranes
Respiratory: Clear to Auscultation
Cardiac: Regular Rhythm and S1/S2; Negative Murmur, Rub or Gallop
GI: Soft, Nontender, Nondistended and Normal Bowel Sounds; Negative Organomegaly
Rectal: Deferred by Provider
Musculoskeletal: No Clubbing, No Cyanosis and No Edema
Skin: Negative Rash
Neuro: Nonfocal/Grossly Intact
--- NOTE | 2023-10-20 17:26 | W.PN.NEPH.PH ---
Today's Communication / Plan
-
HD tomorrow
IR consult for HD catheter
Assessment/Plan
-
IMP:
Symptomatic acute blood loss anemia secondary to upper GI bleed exacerbated by Eliquis/NSAID use
History of gastric bypass
Acute kidney injury
CKD4-baseline ~3, fibrillary GN
Azotemia-uremia
Anion gap metabolic acidosis
Recent left ankle sprain
Essential hypertension
Hypercholesterolemia
Type 2 diabetes
Obstructive sleep apnea
History of saddle pulmonary embolism in 2020
Hypothyroidism
Obesity
Mood disorder
SHPTH
Hyperphosphatemia
PLan:
A/w progressive sob, severe anemia from GIB
LUZMARIA with CKD4-possible from NSAIDs induced +anemia
pt aware of not using NSAIDs
UA ?UTI, mixed marty on cx, non oliguric with out sexton , no hydro on CT
cr was slowly improving but high at range now
improved met acidosis,hold po bicarb with HD
sig azotemia likely from GIB, improving
replace mikael, pending PTH, vit D low-increase calcitriol to daily
given that her renal function not significantly improved since admit we will initiate HD tomorrow, pt consented
IR ocnsulted to place tunneled catheter
she will need HD unit placement
BP high back on home meds, will hold meds pre HD
d/w pt in detail and answered all the questions
-
-
Date of Service: October 20, 2023
CC / HPI / ROS
-
Chief Complaint:
LUZMARIA with CKD4
History of Present Illness:
cr no sig change at 8.3, BUN better to 114
met acidosis better at 30
BP increasing
hb stable at 8.7
non oliguric 3.6lit
Review of Systems:
no cp or sob
feels well
Labs
-
Labs:
WBC 5.7 10^3/uL (4.8-10.8) 10/20/23 07:33
RBC 3.16 10^6/uL (4.20-5.40) L 10/20/23 07:33
Hgb 8.7 g/dL (12.0-16.0) L 10/20/23 07:33
Hct 27.4 % (37.0-47.0) L 10/20/23 07:33
Plt Count 228 10^3/uL (130-400) 10/20/23 07:33
Sodium 137 mmol/L (135-145) 10/20/23 07:33
Potassium 3.8 mmol/L (3.5-5.1) 10/20/23 07:33
Chloride 95 mmol/L (98-107) L 10/20/23 07:33
Carbon Dioxide 30 mmol/L (22-30) 10/20/23 07:33
BUN 114 mg/dl (7-17) H* 10/20/23 07:33
Creatinine 8.3 mg/dL (0.6-1.0) H* 10/20/23 07:33
eGFR 5.03 10/20/23 07:33
Glucose 118 mg/dl (70-99) H 10/20/23 07:33
Calcium 7.5 mg/dl (8.4-10.2) L 10/20/23 07:33
Phosphorus 8.9 mg/dl (2.5-4.5) H 10/16/23 06:06
Albumin 2.6 g/dl (3.5-5.0) L 10/16/23 06:06
Physical Exam
-
Vital Signs:
Vital Signs
Temp Pulse Resp BP Pulse Ox
98.4 F 70 18 160/82 95
10/20/23 11:00 10/20/23 11:00 10/20/23 11:00 10/20/23 11:00 10/20/23 11:00
Cardiovascular:: Regular rate and rhythm
Respiratory:: Bilateral: CTA
Lung Excursion:: Normal
Abdomen:: Nontender and Soft
Extremity Edema:: None: Bilateral:
Sexton Catheter: No
[2023-10-20 19:30] VITALS: BP 144/80
[2023-10-20 23:25] VITALS: BP 131/74
[2023-10-21] VITALS (12 sets, daily range): BP systolic 58–152; BP diastolic 65–85; BMI 41.1
[2023-10-21] MEDS: SYNTHROID 50 MCG PO (05:37)
[2023-10-21] MEDS: LEXAPRO 20 MG PO (08:07)
[2023-10-21] MEDS: VITAMIN D3 (cholecalciferol) 25 MCG PO (08:07)
[2023-10-21] MEDS: TOPROL XL 150 MG PO (08:07)
[2023-10-21] MEDS: OSCAL CAL 500 500 MG PO (08:07)
[2023-10-21] MEDS: PROTONIX 40 MG PO ×2 (08:07→20:12)
[2023-10-21] MEDS: THERAGRAN 1 TABLET PO (08:07)
[2023-10-21] MEDS: ROCALTROL 0.25 MCG PO (08:07)
[2023-10-21] MEDS: SODIUM BICARBONATE 1300 MG PO ×3 (08:07→21:52)
[2023-10-21] MEDS: NORVASC 5 MG PO (08:07)
--- NOTE | 2023-10-21 10:28 | W.PN.HOSP.TC ---
Addendum entered and electronically signed by Julian Goss MD 10/21/23 16:49:
Patient seen and examined
Discussed with resident
Impression/plan:
Acute kidney injury on CKD.
Nonoliguric.
Remains with azotemia and significantly elevated creatinine
Plan is for initiation of hemodialysis
Right chest dialysis access placed by interventional radiology today.
HD to start
Hold antihypertensive regimen initiated yesterday and monitor hemodynamics with HD initiation.
Goal normotension.
Acute anemia.
Recent EGD with no source.
Hemoglobin remained stable after transfusion.
Diet has been advanced.
Original Note:
Today's Communication/Plan
-
.
Assessment / Plan
Assessment / Plan
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
decreased urinary output. She was found to be in acute renal insufficiency and also with anemia with heme positive stools/melena.Patient was on naproxen for ankle sprain.
Impression:
Presentation with severe fatigue and dyspnea.
Severe symptomatic anemia acute on chronic.
Acute kidney injury on CKD
Severe metabolic acidosis acute on chronic
Hyperkalemia.
Conditions prior to admission.
Anemia of chronic kidney disease with baseline hemoglobin 9�10
CKD, status post renal biopsy with fibrillary glomerulonephritis
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
Recent ankle sprain treated with NSAIDs
Essential hypertension
Dyslipidemia
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
Obstructive sleep apnea on CPAP at home
Gastric bypass surgery
Obesity with BMI 43
Mood disorder
Plan:
# Anemia
Hemoglobin 4.9 upon presentation (baseline chronic anemia with hemoglobin 9-10).
Likely either upper GI source ( bleeding from peptic/duodenal ulcer secondary to anticoagulation/NSAIDs ) or lower GI ( Hemoccult positive stools )
Hemodynamically stable.
CT scan of the abdomen pelvis without contrast showed no acute abnormalities.
Hold Eliquis and avoid further NSAIDs
4 units PRBC transfusion
hemoglobin posttransfusion at 7.8
IV PPI twice daily
GI evaluation
EGD on 10/17 with Madiha-en-Y bypass and no ulcers.
Advance diet as tolerated
Plan is to hold anticoagulation for 7 days
If rebleeds may require further evaluation with colonoscopy.
#Acute kidney injury.
Remains nonoliguric
Severe acute on chronic metabolic acidosis.
Uremia.
CKD stage IIIb baseline creatinine 3.2. 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
Hyperkalemia resolved
Nephrology consultation.
Has been off IV fluids as per renal
Continue oral bicarb
Monitor urine output.
Avoid NSAIDs
Hold HCTZ
Remains nonoliguric, although with persistent elevated creatinine and acidemia. Follow BMP closely.
Hemodialysis today after nephrology evaluation
#History of saddle, submassive pulmonary embolism and right lower extremity DVT in 2020
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
Monitor volume and respiratory status closely.
#Essential hypertension.
Amlodipine and metoprolol restarted
Will hold pre HD
#Type 2 diabetes
Hemoglobin A1c pending
Insulin sliding scale
#Obstructive sleep apnea
Continue CPAP.
#Mood disorder
Continue Lexapro and Rexulti.
Full code
Anticipated Discharge: > 48 hours
Subjective/Interval History
-
Date of Service: October 21, 2023
Objective Data
-
Labs:
Laboratory Results
10/21/23 10/21/23
06:00 07:00
WBC Pending
Hgb Pending
Hct Pending
Plt Count Pending
Sodium Pending
Potassium Pending
Chloride Pending
Carbon Dioxide Pending
BUN Pending
Creatinine Pending
Glucose Pending
Calcium Pending
Vital Signs:
Vital Signs
Temp Pulse Resp BP Pulse Ox
98.2 F 60 17 141/70 97
10/21/23 07:51 10/21/23 07:51 10/21/23 07:51 10/21/23 07:51 10/21/23 07:51
I&O
10/20/23 10/21/23 10/22/23
06:59 06:59 06:59
Intake Total 960 / 960 1080 / 1080
Output Total 1500 / 1500 4050 / 4050
Balance -540 / -540 -2970 / -2970
Review of Systems
-
All other systems: Reviewed and negative (Except as mentioned above)
Physical Exam
-
General: Well Developed and Well Nourished
HEENT: Normocephalic and Atraumatic
Respiratory: Clear to Auscultation
Cardiac: S1/S2
Musculoskeletal: Other (2+ lower extremity edema)
Skin: Warm and Dry
Neuro: Awake, Alert, Oriented and AO x 3
--- NOTE | 2023-10-21 12:48 | CM ---
Chart reviewed. PT/OT evaluation pending
Patient off the unit at this time; scheduled for HD today
CM will continue to follow and support discharge needs
[2023-10-21] MEDS: ANCEF 10 IV (13:25)
[2023-10-21] MEDS: RETACRIT 10000 UNITS IV (17:51)
[2023-10-21] MEDS: MANNITOL 12.5 GRAMS IV ×2 (17:51→18:53)
[2023-10-21 17:53] LABS: % Basophils 0.3 % (0-2); % Eosinophils 3.6 % (0-6); % Immature Granulocytes 0.3 % (0-0.5); % Monocytes 10.9 % (1.7-9.3); % Neutrophils 63.9 % (42.2-75.2); Absolute Eosinophils 0.2 10^3/uL (0-0.7); Absolute Lymphocytes 1.3 10^3/uL (1.2-3.4); Absolute Monocytes 0.7 10^3/uL (0.1-0.6); Absolute Neutrophils 3.9 10^3/uL (1.4-6.5); Hematocrit 26.6 % (37.0-47.0); Hemoglobin 8.6 g/dL (12.0-16.0); Mean Corp Hgb Conc. 32.3 g/dL (33.0-37.0); Mean Corpuscular Hgb 27.5 pg (27.0-31.0); Mean Platelet Volume 10.9 fL (7.4-10.4); Nucleated Red Blood Cells % 0 %; Platelet Count 278 10^3/uL (130-400); Red Blood Cell Count 3.13 10^6/uL (4.20-5.40); Red Cell Dist. Width 15.7 % (11.5-14.5)
[2023-10-21 18:19] LABS: Blood Urea Nitrogen 108 mg/dl (7-17); Calcium 7.3 mg/dl (8.4-10.2); Carbon Dioxide 25 mmol/L (22-30); Chloride 99 mmol/L (98-107); Estimated Creatinine Clearance 9 ml/min; Glucose 125 mg/dl (70-99); Iron 69 ug/dl (37-170); Potassium 3.7 mmol/L (3.5-5.1); Sodium 135 mmol/L (135-145)
[2023-10-21 18:34] LABS: Percent Saturation 30 % (20-50); Total Iron Binding Capacity 227 ug/dl (265-497)
--- NOTE | 2023-10-21 18:43 | W.PN.NEPH.HD ---
Assessment
-
pt seen during HD
vitals stable
no UF as she is non oliguric
no heparin wiht recent GIB
tunneled catheter functions
HD unit placement
Progress Note - Hemodialysis
-
Date of Service: October 21, 2023
Duration: 2 hours
Potassium Bath: 3
Calcium Bath: 2.5
Opti-Dialyzer: 160
Ultrafiltration: Other (0)
Blood Flow: 250
Dialysate Flow: Other (400)
Heparin: no
EPO: 21850
[2023-10-21 19:13] LABS: Hepatitis B Core Ab, Total Negative (Negative)
[2023-10-21 20:28] LABS: Hepatitis B Surface Antigen Negative (Negative)
[2023-10-21 20:45] LABS: Hepatitis B Surface Antibody Negative; Hepatitis C Antibody Negative (Negative)
[2023-10-22 03:52] VITALS: BP 132/72
[2023-10-22] MEDS: SYNTHROID 50 MCG PO (05:37)
[2023-10-22 06:00] VITALS: BMI 40.9
[2023-10-22 06:32] LABS: % Basophils 0.6 % (0-2); % Eosinophils 3.3 % (0-6); % Immature Granulocytes 0.2 % (0-0.5); % Lymphocytes 17.2 % (20.5-51.1); % Monocytes 12.2 % (1.7-9.3); % Neutrophils 66.5 % (42.2-75.2); Absolute Eosinophils 0.2 10^3/uL (0-0.7); Absolute Lymphocytes 0.9 10^3/uL (1.2-3.4); Absolute Monocytes 0.7 10^3/uL (0.1-0.6); Absolute Neutrophils 3.6 10^3/uL (1.4-6.5); Hematocrit 26.5 % (37.0-47.0); Hemoglobin 8.6 g/dL (12.0-16.0); Mean Corp Hgb Conc. 32.5 g/dL (33.0-37.0); Mean Corpuscular Hgb 27.9 pg (27.0-31.0); Mean Platelet Volume 10.4 fL (7.4-10.4); Nucleated Red Blood Cells % 0 %; Platelet Count 251 10^3/uL (130-400); Red Blood Cell Count 3.08 10^6/uL (4.20-5.40); Red Cell Dist. Width 15.4 % (11.5-14.5); White Blood Cell Count 5.4 10^3/uL (4.8-10.8)
[2023-10-22 07:00] VITALS: BP 158/86
[2023-10-22 07:32] LABS: ALT (SGPT) 16 U/L (0-35); AST (SGOT) 23 U/L (14-36); Albumin 3.2 g/dl (3.5-5.0); Alkaline Phosphatase 87 U/L (38-126); Blood Urea Nitrogen 65 mg/dl (7-17); Calcium 7.7 mg/dl (8.4-10.2); Carbon Dioxide 26 mmol/L (22-30); Chloride 99 mmol/L (98-107); Estimated Creatinine Clearance 13 ml/min; Glucose 105 mg/dl (70-99); Potassium 3.7 mmol/L (3.5-5.1); Sodium 135 mmol/L (135-145); Total Bilirubin 0.4 mg/dl (0.2-1.3); Total Protein 5.8 g/dl (6.3-8.2); eGFR 8.06
[2023-10-22] MEDS: SODIUM BICARBONATE 1300 MG PO ×3 (08:26→22:23)
[2023-10-22] MEDS: VITAMIN D3 (cholecalciferol) 25 MCG PO (08:26)
[2023-10-22] MEDS: LEXAPRO 20 MG PO (08:26)
[2023-10-22] MEDS: THERAGRAN 1 TABLET PO (08:26)
[2023-10-22] MEDS: ROCALTROL 0.25 MCG PO (08:26)
[2023-10-22] MEDS: PROTONIX 40 MG PO ×2 (08:26→20:49)
[2023-10-22] MEDS: OSCAL CAL 500 500 MG PO (08:26)
--- NOTE | 2023-10-22 09:25 | W.PN.HOSP.TC ---
Addendum entered and electronically signed by Julian Gsos MD 10/22/23 15:44:
Patient seen and examined
Discussed with resident
Impression/plan:
Acute kidney injury on CKD
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
Initiated on HD with tunneled catheter placed by [facility] on 10/20
Tolerates HD
Monitor BP, consider to reintroduce preadmission meds.
Acute anemia with hemoglobin of 4 upon presentation
GI workup with no apparent source.
Responded to transfusion with stable hemoglobin
Diet has been advanced.
Original Note:
Today's Communication/Plan
-
2 nd hemodialysis today
Assessment / Plan
Assessment / Plan
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
decreased urinary output. She was found to be in acute renal insufficiency and also with anemia with heme positive stools/melena.Patient was on naproxen for ankle sprain.
Impression:
Presentation with severe fatigue and dyspnea.
Severe symptomatic anemia acute on chronic.
Acute kidney injury on CKD
Severe metabolic acidosis acute on chronic
Hyperkalemia.
Conditions prior to admission.
Anemia of chronic kidney disease with baseline hemoglobin 9�10
CKD, status post renal biopsy with fibrillary glomerulonephritis
Submassive PE and right lower extremity DVT 2020 on Eliquis ACCESS CLERK
Recent ankle sprain treated with NSAIDs
Essential hypertension
Dyslipidemia
Type 2 diabetes by history not on insulin or oral glucose lowering medications ACCESS CLERK
Obstructive sleep apnea on CPAP at home
Gastric bypass surgery
Obesity with BMI 43
Mood disorder
Plan:
# Anemia
Hemoglobin 4.9 upon presentation (baseline chronic anemia with hemoglobin 9-10).
Likely either upper GI source ( bleeding from peptic/duodenal ulcer secondary to anticoagulation/NSAIDs ) or lower GI ( Hemoccult positive stools )
Hemodynamically stable.
CT scan of the abdomen pelvis without contrast showed no acute abnormalities.
Hold Eliquis and avoid further NSAIDs
4 units PRBC transfusion
hemoglobin posttransfusion at 7.8
IV PPI twice daily
GI evaluation
EGD on 10/17 with Madiha-en-Y bypass and no ulcers.
Advance diet as tolerated
Plan is to hold anticoagulation for 7 days
If rebleeds may require further evaluation with colonoscopy.
#Acute kidney injury.
Remains nonoliguric
Severe acute on chronic metabolic acidosis.
Uremia.
CKD stage IIIb baseline creatinine 3.2. 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
Chronic metabolic acidosis on oral bicarb ACCESS CLERK
Hyperkalemia resolved
Nephrology consultation.
Has been off IV fluids as per renal
Continue oral bicarb
Monitor urine output.
Avoid NSAIDs
Hold HCTZ
Remains nonoliguric, although with persistent elevated creatinine and acidemia. Follow BMP closely.
Hemodialysis started yesterday, she will have one scheduled for today.
Monitor vitals during HD.
#History of saddle, submassive pulmonary embolism and right lower extremity DVT in 2020
On Eliquis ACCESS CLERK. Hold.
Monitor volume and respiratory status closely.
#Essential hypertension.
Amlodipine and metoprolol restarted
Will hold pre HD
#Type 2 diabetes
Hemoglobin A1c pending
Insulin sliding scale
#Obstructive sleep apnea
Continue CPAP.
#Mood disorder
Continue Lexapro and Rexulti.
Full code
Anticipated Discharge: > 48 hours
Subjective/Interval History
-
Date of Service: October 22, 2023
No acute overnight events. Patient had a session of dialysis yesterday evening. No lightheadedness, dizziness, chest pain, SOB.
Objective Data
-
Labs:
Laboratory Results
10/22/23
06:21
WBC 5.4
Hgb 8.6 L
Hct 26.5 L
Plt Count 251
Sodium 135
Potassium 3.7
Chloride 99
Carbon Dioxide 26
BUN 65 H
Creatinine 5.6 H*
Glucose 105 H
Calcium 7.7 L
Total Bilirubin 0.4
AST 23
ALT 16
Alkaline Phosphatase 87
Vital Signs:
Vital Signs
Temp Pulse Resp BP Pulse Ox
98.5 F 59 16 158/86 96
10/22/23 07:00 10/22/23 07:00 10/22/23 07:00 10/22/23 07:00 10/22/23 07:00
I&O
10/21/23 10/22/23 10/23/23
06:59 06:59 06:59
Intake Total 1080 / 1080 365 / 365
Output Total 4050 / 4050 400 / 400
Balance -2970 / -2970 -35 / -35
Review of Systems
-
All other systems: Reviewed and negative (Except as mentioned above)
Physical Exam
-
General: Well Developed and Well Nourished
HEENT: Normocephalic and Atraumatic
Respiratory: Clear to Auscultation
Cardiac: S1/S2
GI: Soft, Nontender, Nondistended and Normal Bowel Sounds
[2023-10-22] MEDS: MANNITOL 12.5 GRAMS IV ×2 (12:35→13:50)
[2023-10-22] MEDS: RETACRIT 10000 UNITS IV (13:52)
--- NOTE | 2023-10-22 14:00 | W.PN.NEPH.HD ---
Assessment
-
- feeling well on HD
- no complaints
Progress Note - Hemodialysis
-
Date of Service: October 22, 2023
Duration: 45 minutes and 2 hours
Potassium Bath: 3
Calcium Bath: 2.5
Opti-Dialyzer: 160
Ultrafiltration: Other
Blood Flow: 300
Dialysate Flow: 600
EPO: 10K
--- NOTE | 2023-10-22 14:43 | CM ---
Case management following for d/c planning
Admitted with anemia and LUZMAR[facility]
HD today
PT/OT pending
Plan - TBD - need PT/OT eval
[2023-10-22 15:00] VITALS: BP 161/80
[2023-10-22 23:00] VITALS: BP 145/82
[2023-10-23] MEDS: SYNTHROID 50 MCG PO (05:11)
[2023-10-23 06:00] VITALS: BMI 40.8
[2023-10-23 07:50] VITALS: BP 165/87
[2023-10-23 08:17] LABS: % Basophils 0.5 % (0-2); % Eosinophils 3.1 % (0-6); % Immature Granulocytes 0.5 % (0-0.5); % Lymphocytes 17.9 % (20.5-51.1); % Monocytes 13.5 % (1.7-9.3); % Neutrophils 64.5 % (42.2-75.2); Absolute Eosinophils 0.2 10^3/uL (0-0.7); Absolute Lymphocytes 1.1 10^3/uL (1.2-3.4); Absolute Monocytes 0.8 10^3/uL (0.1-0.6); Absolute Neutrophils 3.8 10^3/uL (1.4-6.5); Hematocrit 28.2 % (37.0-47.0); Hemoglobin 8.8 g/dL (12.0-16.0); Mean Corp Hgb Conc. 31.2 g/dL (33.0-37.0); Mean Corpuscular Hgb 27.2 pg (27.0-31.0); Mean Corpuscular Volume 87.3 fL (81.0-99.0); Mean Platelet Volume 10.7 fL (7.4-10.4); Nucleated Red Blood Cells % 0 %; Platelet Count 256 10^3/uL (130-400); Red Blood Cell Count 3.23 10^6/uL (4.20-5.40); Red Cell Dist. Width 15.1 % (11.5-14.5); White Blood Cell Count 5.9 10^3/uL (4.8-10.8)
--- NOTE | 2023-10-23 08:34 | W.PN.HOSP.TC ---
Today's Communication/Plan
-
Hemodialysis. Monitor hemoglobin. Monitor blood pressure.
Assessment / Plan
Assessment / Plan
Physical exam:
General: Well Developed, Well Nourished and No Apparent Distress
HEENT: Normocephalic, Atraumatic and Moist Mucous Membranes
Respiratory: Clear to Auscultation; Negative Wheezes, Rales or Rhonchi
Cardiac: Regular Rhythm and S1/S2
GI: Soft, Nontender and Nondistended
Musculoskeletal: No Clubbing, No Cyanosis and No Edema
Neuro: Awake, Alert and Oriented
Psych: Calm
A/P:
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
decreased urinary output. She was found to be in acute renal insufficiency and also with anemia with heme positive stools/melena.Patient was on naproxen for ankle sprain.
Impression:
Presentation with severe fatigue and dyspnea.
Severe symptomatic anemia acute on chronic.
Acute kidney injury on CKD
Severe metabolic acidosis acute on chronic
Hyperkalemia.
Conditions prior to admission.
Anemia of chronic kidney disease with baseline hemoglobin 9�10
CKD, status post renal biopsy with fibrillary glomerulonephritis
Submassive PE and right lower extremity DVT 2020 on Eliquis [facility]
Recent ankle sprain treated with NSAIDs
Essential hypertension
Dyslipidemia
Type 2 diabetes by history not on insulin or oral glucose lowering medications [facility]
Obstructive sleep apnea on CPAP at home
Gastric bypass surgery
Obesity with BMI 43
Mood disorder
Plan:
# Anemia
Hemoglobin 4.9 upon presentation (baseline chronic anemia with hemoglobin 9-10). Hemoglobin 8.8 today
Likely either upper GI source ( bleeding from peptic/duodenal ulcer secondary to anticoagulation/NSAIDs ) or lower GI ( Hemoccult positive stools )
Hemodynamically stable.
CT scan of the abdomen pelvis without contrast showed no acute abnormalities.
Hold Eliquis and avoid further NSAIDs
4 units PRBC transfusion
hemoglobin posttransfusion at 7.8
IV PPI twice daily
GI evaluation
EGD on 10/17 with Madiha-en-Y bypass and no ulcers.
Advance diet as tolerated
Plan is to hold anticoagulation for 7 days
If rebleeds may require further evaluation with colonoscopy.
#Acute kidney injury.
Remains nonoliguric
Severe acute on chronic metabolic acidosis.
Uremia.
CKD stage IIIb baseline creatinine 3.2. 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
Chronic metabolic acidosis on oral bicarb HAND BUFFER
Hyperkalemia resolved
Nephrology consultation.
Has been off IV fluids as per renal
Continue oral bicarb
Monitor urine output.
Avoid NSAIDs
Hold HCTZ
Remains nonoliguric, although with persistent elevated creatinine and acidemia. Follow BMP closely.
Hemodialysis started yesterday, she will have one scheduled for today.
Monitor vitals during HD.
Plan to set up outpatient hemodialysis over the next few days.
#History of saddle, submassive pulmonary embolism and right lower extremity DVT in 2020
On Eliquis HAND BUFFER. Hold.
Monitor volume and respiratory status closely.
#Essential hypertension.
Amlodipine and metoprolol restarted
Will hold pre HD
Reevaluate blood pressure after dialysis to see if she requires any adjustment on her medications.
#Type 2 diabetes
Hemoglobin A1c pending
Insulin sliding scale
#Obstructive sleep apnea
Continue CPAP.
#Mood disorder
Continue Lexapro and Rexulti.
Full code
Anticipated Discharge: > 48 hours
Subjective/Interval History
-
Date of Service: October 23, 2023
Patient received hemodialysis today. No chest pain or shortness of breath. No active bleeding.
Objective Data
-
Labs:
Laboratory Results
10/23/23
07:26
WBC 5.9
Hgb 8.8 L
Hct 28.2 L
Plt Count 256
Sodium Pending
Potassium Pending
Chloride Pending
Carbon Dioxide Pending
BUN Pending
Creatinine Pending
Glucose Pending
Calcium Pending
Vital Signs:
Vital Signs
Temp Pulse Resp BP Pulse Ox
98.8 F 68 16 145/82 94
10/22/23 23:00 10/22/23 23:00 10/22/23 23:00 10/22/23 23:00 10/22/23 23:00
I&O
10/22/23 10/23/23 10/24/23
06:59 06:59 06:59
Intake Total 365 / 365 1260 / 1260
Output Total 400 / 400 1200 / 1200
Balance -35 / -35 60 / 60
[2023-10-23 08:45] LABS: Blood Urea Nitrogen 36 mg/dl (7-17); Calcium 8.5 mg/dl (8.4-10.2); Carbon Dioxide 28 mmol/L (22-30); Chloride 96 mmol/L (98-107); Estimated Creatinine Clearance 16 ml/min; Glucose 115 mg/dl (70-99); Potassium 3.5 mmol/L (3.5-5.1); Sodium 135 mmol/L (135-145); eGFR 10.76
[2023-10-23] MEDS: MANNITOL 12.5 GRAMS IV ×2 (09:00→10:20)
[2023-10-23] MEDS: RETACRIT 10000 UNITS IV (09:05)
[2023-10-23] MEDS: SODIUM BICARBONATE 1300 MG PO ×3 (11:43→22:05)
[2023-10-23] MEDS: THERAGRAN 1 TABLET PO (11:43)
[2023-10-23] MEDS: OSCAL CAL 500 500 MG PO (11:43)
[2023-10-23] MEDS: VITAMIN D3 (cholecalciferol) 25 MCG PO (11:43)
[2023-10-23] MEDS: PROTONIX 40 MG PO ×2 (11:43→20:14)
[2023-10-23] MEDS: LEXAPRO 20 MG PO (11:44)
[2023-10-23] MEDS: ROCALTROL 0.25 MCG PO (11:44)
--- NOTE | 2023-10-23 13:30 | W.PN.NEPH.HD ---
Assessment
-
- had some issues with clotting, will add heparin for next treatment
- no complaints today
Progress Note - Hemodialysis
-
Date of Service: October 23, 2023
Duration: 30 minutes and 3 hours
Potassium Bath: 3
Calcium Bath: 2.5
Opti-Dialyzer: 160
Blood Flow: 400
Dialysate Flow: 600
EPO: 10K
[2023-10-23 15:43] VITALS: BP 155/88
[2023-10-23 23:53] VITALS: BP 158/86
[2023-10-24 06:00] VITALS: BMI 41.1
[2023-10-24] MEDS: SYNTHROID 50 MCG PO (06:11)
[2023-10-24 07:00] VITALS: BP 164/88
[2023-10-24] MEDS: THERAGRAN 1 TABLET PO (07:24)
[2023-10-24] MEDS: ROCALTROL 0.25 MCG PO (07:24)
[2023-10-24] MEDS: PROTONIX 40 MG PO (07:24)
[2023-10-24] MEDS: OSCAL CAL 500 500 MG PO (07:24)
[2023-10-24] MEDS: VITAMIN D3 (cholecalciferol) 25 MCG PO (07:24)
[2023-10-24] MEDS: LEXAPRO 20 MG PO (07:24)
[2023-10-24] MEDS: SODIUM BICARBONATE 1300 MG PO ×2 (07:24→15:06)
[2023-10-24 08:54] LABS: Hematocrit 28.8 % (37.0-47.0); Hemoglobin 8.9 g/dL (12.0-16.0); Mean Corp Hgb Conc. 30.9 g/dL (33.0-37.0); Mean Corpuscular Hgb 27.1 pg (27.0-31.0); Mean Corpuscular Volume 87.5 fL (81.0-99.0); Mean Platelet Volume 10.8 fL (7.4-10.4); Platelet Count 263 10^3/uL (130-400); Red Blood Cell Count 3.29 10^6/uL (4.20-5.40); Red Cell Dist. Width 15.1 % (11.5-14.5); White Blood Cell Count 5.6 10^3/uL (4.8-10.8)
[2023-10-24 09:24] LABS: Blood Urea Nitrogen 24 mg/dl (7-17); Calcium 8.4 mg/dl (8.4-10.2); Carbon Dioxide 30 mmol/L (22-30); Chloride 96 mmol/L (98-107); Estimated Creatinine Clearance 20 ml/min; Glucose 106 mg/dl (70-99); Potassium 3.6 mmol/L (3.5-5.1); Sodium 134 mmol/L (135-145)
--- NOTE | 2023-10-24 09:36 | W.PN.HOSP.TC ---
Today's Communication/Plan
-
Restart antihypertensives. Hemodialysis.
Assessment / Plan
Assessment / Plan
Physical exam:
General: Well Developed, Well Nourished and No Apparent Distress
HEENT: Normocephalic, Atraumatic and Moist Mucous Membranes
Respiratory: Clear to Auscultation; Negative Wheezes, Rales or Rhonchi
Cardiac: Regular Rhythm and S1/S2
GI: Soft, Nontender and Nondistended
Musculoskeletal: No Clubbing, No Cyanosis and No Edema
Neuro: Awake, Alert and Oriented
Psych: Calm
A/P:
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
decreased urinary output. She was found to be in acute renal insufficiency and also with anemia with heme positive stools/melena.Patient was on naproxen for ankle sprain.
Impression:
Presentation with severe fatigue and dyspnea.
Severe symptomatic anemia acute on chronic.
Acute kidney injury on CKD
Severe metabolic acidosis acute on chronic
Hyperkalemia.
Conditions prior to admission.
Anemia of chronic kidney disease with baseline hemoglobin 9�10
CKD, status post renal biopsy with fibrillary glomerulonephritis
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
Recent ankle sprain treated with NSAIDs
Essential hypertension
Dyslipidemia
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
Obstructive sleep apnea on CPAP at home
Gastric bypass surgery
Obesity with BMI 43
Mood disorder
Plan:
# Anemia
Hemoglobin 4.9 upon presentation (baseline chronic anemia with hemoglobin 9-10). Hemoglobin 8.9 today
Likely either upper GI source ( bleeding from peptic/duodenal ulcer secondary to anticoagulation/NSAIDs ) or lower GI ( Hemoccult positive stools )
Hemodynamically stable.
CT scan of the abdomen pelvis without contrast showed no acute abnormalities.
Hold Eliquis and avoid further NSAIDs
4 units PRBC transfusion
hemoglobin posttransfusion at 8.9
IV PPI twice daily
GI evaluation
EGD on 10/17 with Madiha-en-Y bypass and no ulcers.
Advanced diet and tolerated
Plan is to hold anticoagulation for 7 days
If rebleeds may require further evaluation with colonoscopy.
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
Cr 3.6 today
Severe acute on chronic metabolic acidosis.
Uremia.
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
Hyperkalemia resolved
Nephrology consultation.
Has been off IV fluids as per renal
Continue oral bicarb
Monitor urine output.
Avoid NSAIDs
Hold HCTZ
Remains nonoliguric, although with persistent elevated creatinine and acidemia. Follow BMP closely.
Hemodialysis started, she will have one scheduled for tomorrow and will continue with hemodialysis as outpatient.
Monitor vitals during HD.
Plan to set up outpatient hemodialysis over the next few days, either for this coming Wednesday or Wednesday.
Updated family at bedside today on 10/23
#History of saddle, submassive pulmonary embolism and right lower extremity DVT in 2020
On Eliquis UPSETTER SETTER UP. Hold.
Monitor volume and respiratory status closely.
#Essential hypertension.
Mildly uncontrolled but she has not been taking her medications
Amlodipine and metoprolol have been on hold so restarted today.
Continue to monitor blood pressure
no need to hold pre HD but this can be reevaluated
#Type 2 diabetes
Hemoglobin A1c 6.1
Insulin sliding scale
#Obstructive sleep apnea
Continue CPAP.
#Mood disorder
Continue Lexapro and Rexulti.
#Hyponatremia
Will improve with dialysis
Full code
Anticipated Discharge: 24 - 48 hours
Subjective/Interval History
-
Date of Service: October 24, 2023
Patient denies any chest pain or shortness of breath. No bleeding. Patient comfortable sitting in chair.
Objective Data
-
Labs:
Laboratory Results
10/24/23
08:21
WBC 5.6
Hgb 8.9 L
Hct 28.8 L
Plt Count 263
Sodium 134 L
Potassium 3.6
Chloride 96 L
Carbon Dioxide 30
BUN 24 H
Creatinine 3.6 H
Glucose 106 H
Calcium 8.4
Vital Signs:
Vital Signs
Temp Pulse Resp BP Pulse Ox
98.3 F 76 18 164/88 97
10/24/23 07:00 10/24/23 07:00 10/24/23 07:00 10/24/23 07:00 10/24/23 07:00
I&O
10/23/23 10/24/23 10/25/23
06:59 06:59 06:59
Intake Total 1260 / 1260 1200 / 1200
Output Total 1200 / 1200
Balance 60 / 60 1200 / 1200
Review of Systems
-
All other systems: Reviewed and negative
[2023-10-24] MEDS: TOPROL XL 150 MG PO (13:32)
[2023-10-24] MEDS: NORVASC 5 MG PO (13:33)
[2023-10-24 15:00] VITALS: BP 126/67
[2023-10-24 23:00] VITALS: BP 130/80
[2023-10-25] MEDS: PROTONIX 40 MG PO ×3 (00:52→20:46)
[2023-10-25] MEDS: SODIUM BICARBONATE 1300 MG PO ×4 (00:52→20:46)
[2023-10-25 06:00] VITALS: BMI 41.0
[2023-10-25] MEDS: SYNTHROID 50 MCG PO (06:27)
[2023-10-25 07:30] VITALS: BP 137/78
[2023-10-25 07:34] LABS: Hematocrit 27.6 % (37.0-47.0); Hemoglobin 8.6 g/dL (12.0-16.0); Mean Corp Hgb Conc. 31.2 g/dL (33.0-37.0); Mean Corpuscular Hgb 27.5 pg (27.0-31.0); Mean Corpuscular Volume 88.2 fL (81.0-99.0); Mean Platelet Volume 10.6 fL (7.4-10.4); Platelet Count 259 10^3/uL (130-400); Red Blood Cell Count 3.13 10^6/uL (4.20-5.40); Red Cell Dist. Width 14.9 % (11.5-14.5); White Blood Cell Count 6.5 10^3/uL (4.8-10.8)
[2023-10-25 08:15] LABS: Blood Urea Nitrogen 33 mg/dl (7-17); Calcium 8.2 mg/dl (8.4-10.2); Carbon Dioxide 30 mmol/L (22-30); Chloride 97 mmol/L (98-107); Estimated Creatinine Clearance 14 ml/min; Glucose 107 mg/dl (70-99); Potassium 3.6 mmol/L (3.5-5.1); Sodium 133 mmol/L (135-145); eGFR 9.46
[2023-10-25] MEDS: ROCALTROL 0.25 MCG PO (08:34)
[2023-10-25] MEDS: TOPROL XL 150 MG PO (08:34)
[2023-10-25] MEDS: OSCAL CAL 500 500 MG PO (08:34)
[2023-10-25] MEDS: VITAMIN D3 (cholecalciferol) 25 MCG PO (08:34)
[2023-10-25] MEDS: NORVASC 5 MG PO (08:35)
[2023-10-25] MEDS: LEXAPRO 20 MG PO (08:35)
[2023-10-25] MEDS: THERAGRAN 1 TABLET PO (08:35)
[2023-10-25] MEDS: HEPARIN 500 UNITS IV ×2 (12:35→13:35)
--- NOTE | 2023-10-25 13:30 | W.PN.NEPH.HD ---
Assessment
-
Patient seen on hemodialysis
Systolic blood pressure stable with minimal UF
Heparin held in setting of profound anemia on presentation
Eliquis still held, question plan re: reattempt anticoagulation with history of PE versus further GI work up
Progress Note - Hemodialysis
-
Date of Service: October 25, 2023
Duration: 30 minutes and 3 hours
Potassium Bath: 3
Calcium Bath: 2.5
Opti-Dialyzer: 160
Ultrafiltration: Other (0.5 kg)
Blood Flow: 400
Dialysate Flow: 600
Heparin: None
EPO: 10,000
[2023-10-25] MEDS: RETACRIT 10000 UNITS IV (14:00)
--- NOTE | 2023-10-25 14:01 | W.PN.HOSP.TC ---
Today's Communication/Plan
-
dc planning
Assessment / Plan
Assessment / Plan
Physical exam:
General: Well Developed, Well Nourished and No Apparent Distress
HEENT: Normocephalic, Atraumatic and Moist Mucous Membranes
Respiratory: Clear to Auscultation; Negative Wheezes, Rales or Rhonchi
Cardiac: Regular Rhythm and S1/S2
GI: Soft, Nontender and Nondistended
Musculoskeletal: No Clubbing, No Cyanosis and No Edema
Neuro: Awake, Alert and Oriented
Psych: Calm
A/P:
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
decreased urinary output. She was found to be in acute renal insufficiency and also with anemia with heme positive stools/melena.Patient was on naproxen for ankle sprain.
Impression:
Presentation with severe fatigue and dyspnea.
Severe symptomatic anemia acute on chronic.
Acute kidney injury on CKD
Severe metabolic acidosis acute on chronic
Hyperkalemia.
Conditions prior to admission.
Anemia of chronic kidney disease with baseline hemoglobin 9�10
CKD, status post renal biopsy with fibrillary glomerulonephritis
Submassive PE and right lower extremity DVT 2020 on Eliquis [facility] BOOK[facility]
Recent ankle sprain treated with NSAIDs
Essential hypertension
Dyslipidemia
Type 2 diabetes by history not on insulin or oral glucose lowering medications B[employer] BOOKER
Obstructive sleep apnea on CPAP at home
Gastric bypass surgery
Obesity with BMI 43
Mood disorder
Plan:
# Anemia
Hemoglobin 4.9 upon presentation (baseline chronic anemia with hemoglobin 9-10). Hemoglobin stable around 8
Likely either upper GI source ( bleeding from peptic/duodenal ulcer secondary to anticoagulation/NSAIDs ) or lower GI ( Hemoccult positive stools )
Hemodynamically stable.
CT scan of the abdomen pelvis without contrast showed no acute abnormalities.
Held Eliquis and avoid further NSAIDs, can resume now per GI recommendations.
s/p 4 units PRBC transfusion
IV PPI twice daily
EGD on 10/17 with Madiha-en-Y bypass and no ulcers.
Advanced diet and tolerated
Plan is to hold anticoagulation for 7 days, finished the period.
If rebleeds may require further evaluation with colonoscopy.
#Acute kidney injury on CKD stage III B[facility] BOOKER progressed to ESRD and now on HD secondary to fibrillary Rela nephritis confirmed by biopsy.
Cr 3.6
Severe acute on chronic metabolic acidosis.
Uremia.
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
Hyperkalemia resolved
Has been off IV fluids as per renal
Continue oral bicarb
Avoid NSAIDs
Hold HCTZ
Remained nonoliguric, although with persistent elevated creatinine and acidemia.
Hemodialysis started, continue with hemodialysis as outpatient.
Plan to set up outpatient hemodialysis over the next few days, either for this coming Wednesday or Wednesday.
Appreciate nephrology input
#History of saddle, submassive pulmonary embolism and right lower extremity DVT in 2020
On Eliquis BAND BOOKER. Held for 7 days.
Monitor volume and respiratory status closely.
#Essential hypertension.
Mildly uncontrolled but she has not been taking her medications
Amlodipine and metoprolol have been on hold so restarted today.
Continue to monitor blood pressure
no need to hold pre HD but this can be reevaluated
# Hyponatremia,
#Type 2 diabetes
Hemoglobin A1c 6.1
Insulin sliding scale
#Obstructive sleep apnea
Continue CPAP.
#Mood disorder
Continue Lexapro and Rexulti.
#Hyponatremia
Will improve with dialysis
Full code
�Total time spent to see patient, examine the patient on the floor, review data and lab results, discuss treatment plan with patient, nursing staff around 55 minutes
Anticipated Discharge: Within 24 hours
Subjective/Interval History
-
Date of Service: October 25, 2023
No chest pain
No sob
No abd pain
Objective Data
-
Labs:
Laboratory Results
10/25/23
07:08
WBC 6.5
Hgb 8.6 L
Hct 27.6 L
Plt Count 259
Sodium 133 L
Potassium 3.6
Chloride 97 L
Carbon Dioxide 30
BUN 33 H
Creatinine 4.9 H*
Glucose 107 H
Calcium 8.2 L
Vital Signs:
Vital Signs
Temp Pulse Resp BP Pulse Ox
98.9 F 65 16 137/78 97
10/25/23 07:30 10/25/23 08:35 10/25/23 07:30 10/25/23 08:35 10/25/23 07:30
I&O
10/24/23 10/25/23 10/26/23
06:59 06:59 06:59
Intake Total 1200 / 1200 1200 / 1200
Balance 1200 / 1200 1200 / 1200
[2023-10-25 16:00] VITALS: BP 180/96
[2023-10-25 23:00] VITALS: BP 162/81
[2023-10-26 06:00] VITALS: BMI 41.0
[2023-10-26] MEDS: SYNTHROID 50 MCG PO (06:02)
[2023-10-26 07:30] VITALS: BP 153/79
[2023-10-26] MEDS: VITAMIN D3 (cholecalciferol) 25 MCG PO (07:45)
[2023-10-26] MEDS: SODIUM BICARBONATE 1300 MG PO ×3 (07:45→22:00)
[2023-10-26] MEDS: NORVASC 5 MG PO (07:46)
[2023-10-26] MEDS: THERAGRAN 1 TABLET PO (07:46)
[2023-10-26] MEDS: OSCAL CAL 500 500 MG PO (07:46)
[2023-10-26] MEDS: ROCALTROL 0.25 MCG PO (07:46)
[2023-10-26] MEDS: ELIQUIS 5 MG PO ×2 (07:47→20:49)
[2023-10-26] MEDS: LEXAPRO 20 MG PO (07:47)
[2023-10-26] MEDS: TOPROL XL 150 MG PO (07:47)
[2023-10-26] MEDS: PROTONIX 40 MG PO ×2 (07:47→20:48)
--- NOTE | 2023-10-26 09:37 | PTOTSP ---
Patient reports independence with mobility and denies weakness or changes in function. Patient denied the need for PT evaluation, acknowledging our services are available if needs arise. PT will sign off at this time.
--- NOTE | 2023-10-26 11:31 | PTOTSP ---
Reviewed chart and spoke to pt. Pt is indep in room for ADLs and functional mobility. No skilled OT services warranted. Pt states agreement. Will sign off.
--- NOTE | 2023-10-26 11:34 | CM ---
CM following for d/c planning
Pt will need out pt HD unit
Discussed with pt - prefers [facility]
Called [facility] at [facility] [phone]
Per John Zazueta has openings
Clinicals faxed to [phone]
Dr Leonard aware
--- NOTE | 2023-10-26 12:30 | W.PN.HOSP.TC ---
Today's Communication/Plan
-
dc planning
Assessment / Plan
Assessment / Plan
Physical exam:
General: Well Developed, Well Nourished and No Apparent Distress
HEENT: Normocephalic, Atraumatic and Moist Mucous Membranes
Respiratory: Clear to Auscultation; Negative Wheezes, Rales or Rhonchi
Cardiac: Regular Rhythm and S1/S2
GI: Soft, Nontender and Nondistended
Musculoskeletal: No Clubbing, No Cyanosis and No Edema
Neuro: Awake, Alert and Oriented
Psych: Calm
A/P:
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
decreased urinary output. She was found to be in acute renal insufficiency and also with anemia with heme positive stools/melena.Patient was on naproxen for ankle sprain.
Impression:
Presentation with severe fatigue and dyspnea.
Severe symptomatic anemia acute on chronic.
Acute kidney injury on CKD
Severe metabolic acidosis acute on chronic
Hyperkalemia.
Conditions prior to admission.
Anemia of chronic kidney disease with baseline hemoglobin 9�10
CKD, status post renal biopsy with fibrillary glomerulonephritis
Submassive PE and right lower extremity DVT 2020 on Eliquis [employer]
Recent ankle sprain treated with NSAIDs
Essential hypertension
Dyslipidemia
Type 2 diabetes by history not on insulin or oral glucose lowering medications [employer] [facility]
Obstructive sleep apnea on CPAP at home
Gastric bypass surgery
Obesity with BMI 43
Mood disorder
Plan:
# Anemia
Hemoglobin 4.9 upon presentation (baseline chronic anemia with hemoglobin 9-10). Hemoglobin stable around 8
Likely either upper GI source ( bleeding from peptic/duodenal ulcer secondary to anticoagulation/NSAIDs ) or lower GI ( Hemoccult positive stools )
Hemodynamically stable.
CT scan of the abdomen pelvis without contrast showed no acute abnormalities.
Held Eliquis and avoid further NSAIDs, can resume now per GI recommendations.
s/p 4 units PRBC transfusion
IV PPI twice daily
EGD on 10/17 with Madiha-en-Y bypass and no ulcers.
Advanced diet and tolerated
Plan is to hold anticoagulation for 7 days, finished the period.
If rebleeds may require further evaluation with colonoscopy.
#Acute kidney injury on CKD stage III [employer] [facility] progressed to ESRD and now on HD secondary to fibrillary Rela nephritis confirmed by biopsy.
Cr 3.6
Severe acute on chronic metabolic acidosis.
Uremia.
Chronic metabolic acidosis on oral bicarb [facility]
Hyperkalemia resolved
Has been off IV fluids as per renal
Continue oral bicarb
Avoid NSAIDs
Hold HCTZ
Remained nonoliguric, although with persistent elevated creatinine and acidemia.
Hemodialysis started, continue with hemodialysis as outpatient.
Plan to set up outpatient hemodialysis over the next few days, either for this coming Wednesday or Wednesday.
Appreciate nephrology input
#History of saddle, submassive pulmonary embolism and right lower extremity DVT in 2020
On Eliquis [employer] [facility] [employer]. Held for 7 days.
Monitor volume and respiratory status closely.
#Essential hypertension.
better controlled.
# Hyponatremia, Mild.
#Type 2 diabetes
Hemoglobin A1c 6.1
Insulin sliding scale
#Obstructive sleep apnea
Continue CPAP.
#Mood disorder
Mood is pleasant
Continue Lexapro and Rexulti.
# Obesity BMI 41.
Full code
�Total time spent to see patient, examine the patient on the floor, review data and lab results, discuss treatment plan with patient, test case developer, nursing staff around 45 minutes
Anticipated Discharge: Today
Subjective/Interval History
-
Date of Service: October 26, 2023
No chest pain
No sob
No abd pain
Objective Data
-
Vital Signs:
Vital Signs
Temp Pulse Resp BP Pulse Ox
98.3 F 65 16 153/79 99
10/26/23 07:30 10/26/23 07:47 10/26/23 07:30 10/26/23 07:47 10/26/23 07:30
I&O
10/25/23 10/26/23 10/27/23
06:59 06:59 06:59
Intake Total 1200 / 1200 500 / 500 480 / 480
Balance 1200 / 1200 500 / 500 480 / 480
--- NOTE | 2023-10-26 12:42 | W.PN.NEPH.PH ---
Today's Communication / Plan
-
HD tomorrow
Assessment/Plan
-
IMP:
Symptomatic acute blood loss anemia secondary to upper GI bleed exacerbated by Eliquis/NSAID use
History of gastric bypass
Acute kidney injury
CKD4-baseline ~3, fibrillary GN
Azotemia-uremia
Anion gap metabolic acidosis
Recent left ankle sprain
Essential hypertension
Hypercholesterolemia
Type 2 diabetes
Obstructive sleep apnea
History of saddle pulmonary embolism in 2020
Hypothyroidism
Obesity
Mood disorder
SHPTH
Hyperphosphatemia
PLan:
A/w progressive sob, severe anemia from GIB
LUZMARIA with CKD4-possible from NSAIDs induced +anemia
patient will now be ESRD
HD again tomorrow
BP high back on home meds, will hold meds pre HD
d/w pt in detail and answered all the questions
-
-
Date of Service: October 26, 2023
CC / HPI / ROS
-
Chief Complaint:
LUZMARIA with CKD4
History of Present Illness:
hgb 8.6,
hemodynamically more stable
Review of Systems:
no cp or sob
feels well
Labs
-
Labs:
WBC 6.5 10^3/uL (4.8-10.8) 10/25/23 07:08
RBC 3.13 10^6/uL (4.20-5.40) L 10/25/23 07:08
Hgb 8.6 g/dL (12.0-16.0) L 10/25/23 07:08
Hct 27.6 % (37.0-47.0) L 10/25/23 07:08
Plt Count 259 10^3/uL (130-400) 10/25/23 07:08
Sodium 133 mmol/L (135-145) L 10/25/23 07:08
Potassium 3.6 mmol/L (3.5-5.1) 10/25/23 07:08
Chloride 97 mmol/L (98-107) L 10/25/23 07:08
Carbon Dioxide 30 mmol/L (22-30) 10/25/23 07:08
BUN 33 mg/dl (7-17) H 10/25/23 07:08
Creatinine 4.9 mg/dL (0.6-1.0) H* 10/25/23 07:08
eGFR 9.46 10/25/23 07:08
Glucose 107 mg/dl (70-99) H 10/25/23 07:08
Calcium 8.2 mg/dl (8.4-10.2) L 10/25/23 07:08
Phosphorus 8.9 mg/dl (2.5-4.5) H 10/16/23 06:06
Albumin 3.2 g/dl (3.5-5.0) L 10/22/23 06:21
Physical Exam
-
Vital Signs:
Vital Signs
Temp Pulse Resp BP Pulse Ox
98.3 F 65 16 153/79 99
10/26/23 07:30 10/26/23 07:47 10/26/23 07:30 10/26/23 07:47 10/26/23 07:30
Cardiovascular:: Regular rate and rhythm
Respiratory:: Bilateral: CTA
Lung Excursion:: Normal
Abdomen:: Nontender and Soft
Bowel Sounds:: Normal
Extremity Edema:: +1: Bilateral:
Curiel Catheter: No
[2023-10-26 16:00] VITALS: BP 131/70
[2023-10-26 23:43] VITALS: BP 138/73
--- NOTE | 2023-10-27 04:44 | DOWNTIME ---
There was a [employer] Client Land Management Supervisor Downtime on 10/27/2023 from 0100 to 10/27/2023 at 0439. Downtime documentation of patient's care, including medication administrations, has been reconciled in the electronic record per guidelines. Refer to the
patient's paper chart under the miscellaneous tab to see printed paper medication records and downtime forms.
[2023-10-27 06:00] VITALS: BMI 41.2
[2023-10-27] MEDS: SYNTHROID 50 MCG PO (06:13)
[2023-10-27 07:00] VITALS: BP 171/96
[2023-10-27] MEDS: ELIQUIS 5 MG PO (09:03)
[2023-10-27] MEDS: VITAMIN D3 (cholecalciferol) 25 MCG PO (09:03)
[2023-10-27] MEDS: NORVASC 5 MG PO (09:04)
[2023-10-27] MEDS: PROTONIX 40 MG PO (09:04)
[2023-10-27] MEDS: THERAGRAN 1 TABLET PO (09:04)
[2023-10-27] MEDS: ROCALTROL 0.25 MCG PO (09:04)
[2023-10-27] MEDS: LEXAPRO 20 MG PO (09:05)
[2023-10-27] MEDS: OSCAL CAL 500 500 MG PO (09:05)
[2023-10-27] MEDS: SODIUM BICARBONATE 1300 MG PO ×2 (09:05→16:44)
[2023-10-27] MEDS: TOPROL XL 150 MG PO (09:05)
--- NOTE | 2023-10-27 09:06 | CM ---
Addendum entered by Priya Lala 10/27/23 15:32:
Per Max at [facility] pt has chair time for 10:45AM at [place]
Instructed to arrive at 10:15AM
Pt aware
Dr Leonard made aware
Plan - home at d/c HD chair at [place] - start date 10/28 at 10:45AM
Original Note:
Received message fro Max at [facility]
Pt was approved for HD at [place] - waiting on chair
Max will call with chair time when available
Dr Leonard made aware
Plan - d/c to home when HD chair time obtained
--- NOTE | 2023-10-27 12:05 | W.PN.HOSP.TC ---
Addendum entered and electronically signed by Kaity Leonard MD 10/27/23 16:52:
Addendum
Hypokalemia, treated.
Original Note:
Today's Communication/Plan
-
dc after HD
Assessment / Plan
Assessment / Plan
Physical exam:
General: Well Developed, Well Nourished and No Apparent Distress
HEENT: Normocephalic, Atraumatic and Moist Mucous Membranes
Respiratory: Clear to Auscultation; Negative Wheezes, Rales or Rhonchi
Cardiac: Regular Rhythm and S1/S2
GI: Soft, Nontender and Nondistended
Musculoskeletal: No Clubbing, No Cyanosis and No Edema
Neuro: Awake, Alert and Oriented
Psych: Calm
A/P:
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
decreased urinary output. She was found to be in acute renal insufficiency and also with anemia with heme positive stools/melena.Patient was on naproxen for ankle sprain.
Impression:
Presentation with severe fatigue and dyspnea.
Severe symptomatic anemia acute on chronic.
Acute kidney injury on CKD
Severe metabolic acidosis acute on chronic
Hyperkalemia.
Conditions prior to admission.
Anemia of chronic kidney disease with baseline hemoglobin 9�10
CKD, status post renal biopsy with fibrillary glomerulonephritis
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
Recent ankle sprain treated with NSAIDs
Essential hypertension
Dyslipidemia
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
Obstructive sleep apnea on CPAP at home
Gastric bypass surgery
Obesity with BMI 43
Mood disorder
Plan:
# Anemia
Hemoglobin 4.9 upon presentation (baseline chronic anemia with hemoglobin 9-10). Hemoglobin stable around 8
Likely either upper GI source ( bleeding from peptic/duodenal ulcer secondary to anticoagulation/NSAIDs ) or lower GI ( Hemoccult positive stools )
Hemodynamically stable.
CT scan of the abdomen pelvis without contrast showed no acute abnormalities.
Held Eliquis and avoid further NSAIDs, can resume now per GI recommendations.
s/p 4 units PRBC transfusion
IV PPI twice daily
EGD on 10/17 with Madiha-en-Y bypass and no ulcers.
Advanced diet and tolerated
Plan is to hold anticoagulation for 7 days, finished the period.
If rebleeds may require further evaluation with colonoscopy.
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
Cr 3.6
Severe acute on chronic metabolic acidosis.
Uremia.
Chronic metabolic acidosis on oral bicarb SENIOR ELECTRONICS ENGINEER
Hyperkalemia resolved
Has been off IV fluids as per renal
Continue oral bicarb
Avoid NSAIDs
Hold HCTZ
Remained nonoliguric, although with persistent elevated creatinine and acidemia.
Hemodialysis started, continue with hemodialysis as outpatient.
Plan to set up outpatient hemodialysis over the next few days, either for this coming Wednesday or Wednesday.
Appreciate nephrology input
#History of saddle, submassive pulmonary embolism and right lower extremity DVT in 2020
On Eliquis SENIOR ELECTRONICS ENGINEER. Held for 7 days.
Monitor volume and respiratory status closely.
#Essential hypertension.
better controlled.
# Hyponatremia, Mild.
#Type 2 diabetes
Hemoglobin A1c 6.1
Insulin sliding scale
#Obstructive sleep apnea
Continue CPAP.
#Mood disorder
Mood is pleasant
Continue Lexapro and Rexulti.
# Obesity BMI 41.
Full code
�Total discharge time spent to see patient, examine the patient on the floor, review data and lab results, discuss discharge plan with patient, director of casework services, nursing staff around 65 minutes
Anticipated Discharge: Today
Subjective/Interval History
-
Date of Service: October 27, 2023
No pain in chest or abdomen
No sob
Anxious to go home
Objective Data
-
Vital Signs:
Vital Signs
Temp Pulse Resp BP Pulse Ox
97.0 F 62 16 152/79 99
10/27/23 07:00 10/27/23 09:05 10/27/23 07:00 10/27/23 09:05 10/27/23 07:00
I&O
10/26/23 10/27/23 10/28/23
06:59 06:59 06:59
Intake Total 500 / 500 1200 / 1200
Balance 500 / 500 1200 / 1200
[2023-10-27 12:39] LABS: Hematocrit 27.9 % (37.0-47.0); Hemoglobin 8.7 g/dL (12.0-16.0)
[2023-10-27] MEDS: RETACRIT 10000 UNITS IV (13:10)
[2023-10-27 13:18] LABS: Blood Urea Nitrogen 30 mg/dl (7-17); Calcium 8.2 mg/dl (8.4-10.2); Carbon Dioxide 30 mmol/L (22-30); Chloride 95 mmol/L (98-107); Estimated Creatinine Clearance 15 ml/min; Glucose 84 mg/dl (70-99); Potassium 3.3 mmol/L (3.5-5.1); Sodium 131 mmol/L (135-145); eGFR 10.21
--- NOTE | 2023-10-27 14:10 | W.PN.NEPH.HD ---
Assessment
-
- feeling well on HD
- hoping for discharge soon
Progress Note - Hemodialysis
-
Date of Service: October 27, 2023
Duration: 30 minutes and 3 hours
Potassium Bath: 4
Calcium Bath: 2.5
Opti-Dialyzer: 160
Blood Flow: 400
Dialysate Flow: 600
EPO: 10K
[2023-10-27 15:00] VITALS: BP 142/65
[2023-10-27] MEDS: HEPARIN 3900 UNITS INTRACATH (15:45)
--- NOTE | 2023-10-27 16:44 | W.DCSUMMARY ---
Discharge Summary
Discharge Data
Date of Admission: 10/15/23
Date of Discharge: 10/27/23
-
Pending Results: No
Hospital Course
63 years old female presented to the emergency room with increasing fatigue, shortness of breath. Patient was found to have hemoglobin of 4.9, bicarbonate of 11, creatinine 9.2 and blood urea nitrogen of 169. She tested positive for occult blood
in the stool. Patient was recently taking nonsteroid anti-inflammatory medication for sprained ankle. Patient was taking Eliquis for history of pulmonary embolism. Patient was admitted to intensive care unit. She was started on bicarbonate
treatment. She was given a blood transfusion around for total of 4 units. Patient was evaluated by gastroenterology and underwent upper endoscopy that showed normal finding. It was concluded that bleeding happened secondary to the use of
nonsteroidal anti-inflammatory medication and recommended to continue on the Protonix pump inhibitor treatment and follow-up with gastroenterology in the outpatient setting. Patient did not have melena. Hemoglobin stabilized. Patient had history
of chronic kidney disease stage IV. She had history of decreasing urine output. Her kidney function did not improve and she underwent hemodialysis. Dialysis catheter was placed in upper right chest. She was started on hemodialysis without
complications. She was followed by medical office receptionist assistant. cafe or restaurant manager was involved to coordinate outpatient dialysis set up. Eliquis was resumed after 7 days break. Hemoglobin remained stable around 8.7. Patient remained hemodynamically stable and was
discharged in a stable condition.
Discharge Plan
-
Patient Disposition: Home (Routine Discharge)
Discharge Diagnosis/Procedures: Kidney failure, starting hemodialysis.
Anemia secondary combination of anemia of chronic disease and acute blood loss anemia. Continue Protonix for 2 months and follow-up with gastroenterology in the office
Diet: As tolerated, 2 Gram Sodium and Diabetic, Carb Controlled
Blood Work: H/H in 2 weeks see slip on chart
Others Tests: avoid alll NSAIDs (Aleve, motrin, Ibuprofen etc)
Referrals:
Fransisco Melgar MD [Active] - (call GI to arrange 4-6 week follow up )
Melanie Messer PA-C [Family Provider] -
Prescriptions:
New
pantoprazole 40 mg Tablet,Delayed Release (Dr/Ec)
40 mg PO BID Qty: 60 0RF
Continued
fluticasone propionate 1 SPRAY spray,suspension
1 spray intranasal DAILY PRN (Reason: allergies/congestion)
cholecalciferol (vitamin D3) 1,000 UNITS tablet
1,000 units PO DAILY
multivitamin with folic acid [Tab-A-Angy] 1 TABLET tablet
1 tab PO DAILY
metoprolol succinate 100 MG tablet extended release 24 hr
150 mg PO DAILY
Rx Instructions:
with 50mg
calcium carbonate 600 MG tablet
600 mg PO DAILY
levothyroxine 50 mcg tablet
50 mcg PO DAILY
calcitriol 0.25 mcg capsule
0.25 mcg PO SUMOTU
Rexulti 2 mg tablet
2 mg PO DAILY
maupgyxto-wmeusdkx-dfz-hyalur [Move Free Ultra Triple Action] 40-5-3.3 mg Tablet
1 tab PO DAILY
Eliquis 5 MG tablet
5 mg PO BID
amlodipine 5 mg Tablet
5 mg PO DAILY
escitalopram oxalate [Lexapro] 20 mg Tablet
20 mg PO DAILY
sodium bicarbonate 650 mg tablet
1,300 mg PO TID
Discontinued
hydrochlorothiazide 25 mg tablet
25 mg PO DAILY
naproxen sodium [Aleve] 220 mg Tablet
220 mg PO BIDPRN PRN (Reason: ankle pain)
ibuprofen [Advil] 200 mg Tablet
400 mg PO Q6HPRN PRN (Reason: mild pain)
Discharge Orders:
Discharge Patient (As Directed); Ordered 10/26/23
Ordered By: Kaity Leonard
Discharge Date and Time
Print Language: MALTESE
== END 2023-10-27 18:16 | disposition home or self-care (01) | DRG 673 ==
LOC: 3 WEST ACU 23:39
PROVIDERS: Hospitalist; Internal Medicine; Radiology Vascular & Interventional Radiology; Specialist; Student in an Organized Health Care Education/Training Program; ADMITTING PHYSICIAN Hospitalist; ATTENDING PHYSICIAN Internal Medicine; CONSULT PHYSICIAN Internal Medicine; CONSULT PHYSICIAN Internal Medicine Gastroenterology; EMERGENCY PHYSICIAN Emergency Medicine; FAMILY PHYSICIAN Physician Assistant Medical; OTHER PHYSICIAN Internal Medicine Critical Care Medicine
PROC: 30233N1 Transfusion of Nonautologous Red Blood Cells into Peripheral Vein, Percutaneous Approach (ICD-10-PCS; 2023-10-16)
PROC: 0DJ08ZZ Inspection of Upper Intestinal Tract, Via Natural or Artificial Opening Endoscopic (ICD-10-PCS; 2023-10-18)
PROC: 05HM33Z Insertion of Infusion Device into Right Internal Jugular Vein, Percutaneous Approach (ICD-10-PCS; 2023-10-21)
PROC: 5A1D70Z Performance of Urinary Filtration, Intermittent, Less than 6 Hours Per Day (ICD-10-PCS; 2023-10-21)
PROC: 0JH63XZ Insertion of Tunneled Vascular Access Device into Chest Subcutaneous Tissue and Fascia, Percutaneous Approach (ICD-10-PCS; 2023-10-21)
DX: N17.9 Acute kidney failure, unspecified (principal); K25.4 Chronic or unspecified gastric ulcer with hemorrhage; D62 Acute posthemorrhagic anemia; D68.32 Hemorrhagic disorder due to extrinsic circulating anticoagulants; Z68.41 Body mass index [BMI] 40.0-44.9, adult; E87.20 Acidosis, unspecified; I12.0 Hypertensive chronic kidney disease with stage 5 chronic kidney disease or end stage renal disease; E03.9 Hypothyroidism, unspecified; G47.33 Obstructive sleep apnea (adult) (pediatric); E66.01 Morbid (severe) obesity due to excess calories; E83.39 Other disorders of phosphorus metabolism; E11.22 Type 2 diabetes mellitus with diabetic chronic kidney disease; N18.6 End stage renal disease; D63.1 Anemia in chronic kidney disease; E87.5 Hyperkalemia; Z79.01 Long term (current) use of anticoagulants; Z86.711 Personal history of pulmonary embolism; Z79.84 Long term (current) use of oral hypoglycemic drugs; Z98.84 Bariatric surgery status; Z99.2 Dependence on renal dialysis
CPT/HCPCS: 36430; 36558; 51702; 71046; 74176; 76937; 77001; 80048; 80053; 81003; 81015; 82306; 82330; 82570; 82728; 82962; 83036; 83540; 83550; 83735; 83970; 84100; 84300; 85014; 85018; 85025; 85027; 85610; 85730; 86704; 86706; 86803; 86850; 86900; 86901; 86920; 87340; 93005; 94660; 96365; 96366; 99152; 99153; 99291; 99292; C1750; G0257; P9016; P9047; Q5106

== ENCOUNTER → 2023-11-25 13:54 | Outpatient (REF) | payer OTHER, SELFPAY | LOC: RAD 13:54 | PROVIDERS: ATTENDING PHYSICIAN Surgery Vascular Surgery; FAMILY PHYSICIAN Physician Assistant Medical | DX: Z01.818 Encounter for other preprocedural examination (principal) | CPT/HCPCS: 93985 ==

== ENCOUNTER 2023-12-02 06:10 | Day surgery (SDC) | payer OTHER, SELFPAY ==
--- NOTE | 2023-11-25 14:56 | PTCARENOTE ---
Abn ECG, Dr. Escoto notified, no requests made.
[2023-12-02] VITALS (12 sets, daily range): BP systolic 90–126; BP diastolic 48–71; BMI 41.5
[2023-12-02] MEDS: PERIDEX 0.12% ORAL RINSE 15 ML PO (06:55)
[2023-12-02] MEDS: NSS 500 IV (06:55)
[2023-12-02] MEDS: BACTROBAN NASAL 1 GRAM NASAL (06:58)
[2023-12-02 07:01] LABS: Hematocrit 31.5 % (37.0-47.0); Hemoglobin 9.9 g/dL (12.0-16.0); Mean Corp Hgb Conc. 31.4 g/dL (33.0-37.0); Mean Corpuscular Volume 89.2 fL (81.0-99.0); Platelet Count 295 10^3/uL (130-400); Red Blood Cell Count 3.53 10^6/uL (4.20-5.40); White Blood Cell Count 6.9 10^3/uL (4.8-10.8)
[2023-12-02 07:08] LABS: Blood Urea Nitrogen 35 mg/dl (7-17); Calcium 8.5 mg/dl (8.4-10.2); Carbon Dioxide 31 mmol/L (22-30); Chloride 96 mmol/L (98-107); Estimated Creatinine Clearance 18 ml/min; Glucose 115 mg/dl (70-99); Potassium 4.4 mmol/L (3.5-5.1); Sodium 139 mmol/L (135-145); eGFR 12.83
--- NOTE | 2023-12-02 07:10 | W.SUR.PREOP ---
Pre-Operative Surgical Note
-
I have examined this patient prior to the performance of the scheduled procedure.
The patient's condition is unchanged from the time of the current History and
Physical and the patient is able to undergo the scheduled procedure.
[2023-12-02 07:42] LABS: INR 1.03; PT 13.5 Sec (11.4-14.6)
[2023-12-02 07:43] LABS: APTT 27.6 Sec (23.4-35.0)
--- NOTE | 2023-12-02 08:25 | W.SUR.POST ---
Surgical Immediate Post Op
Note
Pre Op Diagnosis: ESRD
Post Op Diagnosis: Same
Procedure Performed: Left upper extremity brachiocephalic AV fistula creation
Primary Surgeon: Cristo
Secondary Surgeons: Audie LEVY
Anesthesia: LMA
Estimated Blood Loss: 4cc
Fluids: See anesthesia flowsheet
Drains/Shunts: None
Specimens/Cultures: None
Doppler/Duplex/Angio (Y/N): Y
Complications: None
Operative Findings: + Thrill
[2023-12-02 09:24] LABS: Glucose - Point of Care 129 mg/dl (70-99)
[2023-12-02] MEDS: TYLENOL 650 MG PO (09:57)
--- NOTE | 2023-12-02 10:54 | PTCARENOTE ---
Pt's pulse ox is dropping to high 80's momentarily and then returns to 90-94. Pt is asymptomatic. Dr Gross, anesthesiologist and Alisa LEVY made aware. Dr Gross in to evaluate pt and states pt ok for discharge. Alisa LEVY out to evaluate pt and
also states pt ok for discharge.
--- NOTE | 2023-12-02 11:15 | PTCARENOTE ---
Dr Lemons aware of pt's pulse ox results and in to evaluate pt. Dr Lemons states ok for discharge.
--- NOTE | 2023-12-02 16:23 | OR.RPT ---
Operative Report
Operative Report
PROCEDURE DATE: 12/02/2023
Preoperative diagnosis: End-stage renal disease on hemodialysis
Postoperative diagnosis: Same
Procedure: Left upper extremity brachiocephalic arteriovenous fistula creation
Surgeon: Cristo
Administrative Support Assoc: Nidhi Bronson NP required for all aspects of procedure including traction/countertraction, assistance with following suture line, assistance with closure.
Complications: None
Anesthesia: General
Indications for procedure:
End-stage renal disease on hemodialysis. Requiring dialysis access. Risk/benefits/alternatives of fistula creation were all fully discussed. Patient understood all wish to proceed.
Description of procedure:
Patient was identified brought to the operating room placed on the table in supine position. After the initiation of anesthesia, I used an ultrasound in the OR to map the veins in the left upper extremity myself. Left upper arm cephalic vein
appeared reasonable.
After the adequate administration of anesthesia and perioperative antibiotics she was prepped and draped in the standard surgical fashion. A standard preoperative timeout was undertaken and everybody was in agreement the plan. A transverse
incision was made in the proximal volar aspect of the forearm just distal to the antecubital fossa. This was carried through skin subcutaneous tissue. The antecubital extension of the cephalic vein was identified and carefully dissected away from
surrounding structures and great care to avoid any injury to structures. All branches were ligated between silk ties and then divided. As such I was able to mobilize a suitable length of cephalic vein. Once I had done this I then deepened my
dissection in the medial aspect of the incision site through the fascial layer. The brachial artery was carefully identified and carefully dissected away from surrounding structures take great care to avoid injury to structures. It was noted to be
fairly deep. I passed a vessel loop around approximately. Next I gave the patient 3000 units of intravenous heparin. I then ligated the cephalic vein distally in my field with a silk tie and a clip. I then transected it. I distended under
heparinized saline. It distended very well. I marked the anterior surface under distention to avoid any kinking or twisting. The vein was suitable size but just to be sure I ran a 3 mm dilator through which passed without any difficulty
whatsoever. Next I tightened my doubly Vesseloops on the artery proximally distally. I then made an arteriotomy with 11 blade extended using a Badillo scissor. I spatulated the cephalic vein and sewed an end to side anastomosis using a running 6-0
Prolene suture. Prior to completing and tying down my suture line I backbled and forebled the [place] artery. Next I released my bulldog clamp on the vein and then released my Vesseloops on the artery (first the proximal vessel loop, then the
distal). There was an excellent thrill in the fistula. There was a palpable pulse at the wrist in the radial artery. At this point I was very satisfied. I irrigated. I achieved and confirmed full hemostasis. We then closed in layers using 3-0
Vicryl deep dermal layer followed by 4-0 Monocryl subcuticular stitch. Dermabond was applied. The patient tolerated the procedure well.
== END 2023-12-02 11:16 | disposition home or self-care (01) ==
LOC: CATH 06:10
PROVIDERS: ATTENDING PHYSICIAN Surgery Vascular Surgery; FAMILY PHYSICIAN Obstetrics & Gynecology Gynecology
DX: N18.6 End stage renal disease (principal); I12.0 Hypertensive chronic kidney disease with stage 5 chronic kidney disease or end stage renal disease; Z99.2 Dependence on renal dialysis; Z86.39 Personal history of other endocrine, nutritional and metabolic disease; E66.09 Other obesity due to excess calories; Z68.41 Body mass index [BMI] 40.0-44.9, adult; Z79.01 Long term (current) use of anticoagulants
CPT/HCPCS: 36821; 80048; 82962; 85027; 85610; 85730; 86850; 86900; 86901

== ENCOUNTER → 2024-01-14 08:54 | Outpatient (REF) | payer OTHER, SELFPAY | LOC: RAD 08:54 | PROVIDERS: ATTENDING PHYSICIAN Physician Assistant; FAMILY PHYSICIAN Physician Assistant Medical | DX: I77.0 Arteriovenous fistula, acquired (principal) | CPT/HCPCS: 93990 ==

== ENCOUNTER → 2024-03-02 13:19 | Outpatient (REF) | payer OTHER, SELFPAY ==
[2024-03-02 13:53] VITALS: BP 115/71; BP_SYST 65
== END ==
LOC: RADI 13:19
PROVIDERS: ATTENDING PHYSICIAN Specialist
DX: Z49.01 Encounter for fitting and adjustment of extracorporeal dialysis catheter (principal)
CPT/HCPCS: 36589

== ENCOUNTER → 2024-05-26 07:04 | Outpatient (REF) | payer OTHER, SELFPAY | LOC: DHCBC/DCA 07:04 | PROVIDERS: FAMILY PHYSICIAN Physician Assistant Medical | DX: N18.6 End stage renal disease (principal) | CPT/HCPCS: 78452; 93017; A9500; J2785 ==

== ENCOUNTER → 2024-06-01 09:39 | Outpatient (REF) | payer OTHER, SELFPAY | LOC: HWWDC 09:39 | PROVIDERS: FAMILY PHYSICIAN Physician Assistant Medical | DX: Z12.31 Encounter for screening mammogram for malignant neoplasm of breast (principal) | CPT/HCPCS: 77063; 77067 ==

== ENCOUNTER → 2024-06-16 07:02 | Outpatient (REF) | payer OTHER, SELFPAY | LOC: HWRCS 07:02 | PROVIDERS: ATTENDING PHYSICIAN Student in an Organized Health Care Education/Training Program; FAMILY PHYSICIAN Physician Assistant Medical | DX: N18.6 End stage renal disease (principal) | CPT/HCPCS: 93306 ==

== ENCOUNTER → 2024-06-26 10:09 | Outpatient (REF) | payer OTHER, SELFPAY | LOC: DHVS 10:09 | PROVIDERS: ATTENDING PHYSICIAN Surgery Vascular Surgery; FAMILY PHYSICIAN Physician Assistant Medical; OTHER PHYSICIAN Physician Assistant | DX: I77.0 Arteriovenous fistula, acquired (principal) | CPT/HCPCS: 93990 ==

== ENCOUNTER 2024-10-14 19:26 | Emergency (ER) | payer OTHER, SELFPAY ==
[2024-10-14 19:32] VITALS: BP 97/74
[2024-10-14 19:57] VITALS: BMI 34.1
--- NOTE | 2024-10-14 21:12 | ED.GENMED ---
History of Present Illness
General
Chief Complaint: Musculo-Skeletal Complaint
Source: patient
Time Seen by Provider: 10/14/24 20:06
History of Present Illness
History of Present Illness:
64-year-old female with past medical history of DVT, PE, chronic kidney disease (dialysis Wednesday and Wednesday) presenting to the emergency department for evaluation after she absent got her shoe caught on the floor in her kitchen causing her
to fall forward onto her left wrist now with left wrist pain, edema and difficulty with range of motion. Patient does not believe she hit her head on anything and is currently denying any headache, loss consciousness, vomiting or any other
concerns. Patient notes that she has a fistula to the affected left upper extremity but is not having any pain or increased edema to this area. No other injuries sustained. Patient declining anything for pain.
Past History
Past History
ED Past Medical History: HTN, Hypercholesterolemia, NIDDM (befor Gastric bypass), Renal failure and Other (MICHAEL, Anemia, pulmonary embolism)
ED Past Surgical History: Bowel resection (Gastric bypass) and Gynecological (Total hysterectomy)
Social History
Tobacco: Non-smoker
Alcohol: None
Drug: None
Personal: Single
Living: alone
Employment: Employed
Review of Systems
Review of Systems
All Other Systems: ROS reviewed and negative except as documented in HPI and ROS
Phy Exam
Physical Exam
Physical Exam:
GENERAL: Alert , in no apparent distress
EYE: conjunctiva clear
Head: Normocephalic atraumatic
NECK: Supple,
ENT: mmm.
LUNGS: no acute respiratory distress
NEUROLOGICAL: Alert and oriented
SKIN: Warm and dry, skin intact.
MUSCULOSKELETAL: Left upper extremity: There is mild to moderate soft tissue swelling with deformity noted at the distal radius and tenderness directly over this area. There is an easily palpable radial pulse. Sensation is grossly intact to light
touch. Cap refill less than 2 seconds. Left upper extremity fistula has palpable thrill.
PSYCH: Normal and appropriate interaction.
Scores
Heart Failure Risk
Heart Failure Risk Score: Not Applicable
Heart Score for Chest Pain Patients
STEMI patient?: Not applicable
Withdrawal Assessment of Alcohol
Withdrawal Assessment Completed?: Not applicable
Course
Orders/Labs/Results
Orders:
Orders
10/14/24 19:34
Wrist, Left 3 Views CR [CR Wrist - Left Min 3 Views] Urgent
Comment:
Reason For Exam: pain
10/14/24 19:42
Hand, Left 3 View [CR Hand - Left Min 3 Views] Urgent
Comment:
Reason For Exam: pain
10/14/24 20:51
CT Head W/o Iv Contrast Urgent
Comment:
Reason For Exam: fall, on eliquis
10/14/24 22:33
Acetaminophen [Tylenol] 1,000 mg .ROUTE .STK-MED ONE
Acetaminophen [Tylenol] 1,000 mg PO NOW STA
Vital Signs
Initial and Last Documented VS:
Initial Vital Signs
Temp Pulse Resp BP Pulse Ox
98.6 F 70 16 97/74 98
10/14/24 19:32 10/14/24 19:32 10/14/24 19:32 10/14/24 19:32 10/14/24 19:32
Last Documented Vital Signs
Temp Pulse Resp BP Pulse Ox
98.6 F 70 16 97/74 98
10/14/24 19:32 10/14/24 19:32 10/14/24 19:32 10/14/24 19:32 10/14/24 19:32
Procedures
Splinting/Sling Placement
Left Wrist:
Procedure completed by: Desi
Pre-splint extermity exam: neurovascular intact
Type of splint: volar
Splint material: other (3 inch Ortho-Glass)
Splint checked by provider?: Yes
MDM/Problems Addressed
Differential Diagnosis Includes:
Fracture, sprain, contusion, ICH, concussion
MDM/Problems Addressed:
64-year-old female presenting to the ER for evaluation after an accidental trip and fall resulting in left wrist pain and injury. X-rays were ordered from triage which do show a distal radius and ulnar styloid fracture. The fractures do appear to
be nondisplaced and nonangulated. Will place in a splint as above. Will ensure close follow-up with orthopedics given patient has a fistula to the same extremity. Patient declining anything for pain. Due to patient being anticoagulated with a
left wrist fracture and fall will still obtain head CT to rule out any intracranial pathology.
*Radiology
Radiology exam reviewed: preliminary read by ED provider (Distal radius and ulnar styloid fracture) and radiology read reviewed
*Pulse Oximetry
Patient hypoxic: no
*Critical Care Note
Total Time (30-74mins, 75-104mins- exclusive of procedures): Not Applicable
Patient Management
Discussion with other providers: Plastic Welding Machine Operator
Escalation/DeEscalation of care consider admission/obs:
Orthopedics agrees with treatment plan and recommends patient follow-up in office with them this week.
CT scan does not show any acute intracranial pathology. Stable for discharge home. Patient will follow-up with orthopedics. Aware of return precautions.
ED Attending Note
-
Portions of this chart may have been created with voice recognition software.� Occasional wrong word or��sound alike� substitutions may have occurred due to the inherent limitations of voice recognition software.
Discharge Plan
Departure
Patient Disposition: Home (Routine Discharge)
Date of Disposition: 10/14/24
Time of Disposition: 22:47
Patient with high blood pressure during this ER visit?: No
Discharge Problem:
Distal radius fracture, left, Closed fracture of distal end of left ulna
Instructions: Wrist Fracture (DC)
Prescriptions:
New
oxycodone-acetaminophen [Percocet] 5-325 mg tablet
1 tab PO Q6HPRN PRN (Reason: pain) Qty: 6 0RF
No Action
fluticasone propionate 1 SPRAY spray,suspension
1 spray intranasal DAILYPRN PRN (Reason: allergies/congestion)
cholecalciferol (vitamin D3) 1,000 UNITS tablet
2,000 units PO DAILY
metoprolol succinate 100 MG tablet extended release 24 hr
150 mg PO DAILY
Rx Instructions:
with 50mg
calcium carbonate 600 MG tablet
600 mg PO DAILY
levothyroxine 50 mcg tablet
50 mcg PO DAILY
calcitriol 0.25 mcg capsule
0.5 mcg PO DAILY
jkztllzbj-frllqvgq-rrs-hyalur [Move Free Ultra Triple Action] 40-5-3.3 mg Tablet
1 tab PO DAILY
Eliquis 5 MG tablet
5 mg PO BID
amlodipine 5 mg Tablet
5 mg PO DAILY
escitalopram oxalate [Lexapro] 20 mg Tablet
20 mg PO DAILY
Tums
1 tab PO TID
Rx Instructions:
with meals
multivitamin Tablet
1 tab PO DAILY
hydrochlorothiazide 25 mg Tablet
25 mg PO DAILY
sevelamer carbonate [Renvela] 800 mg Tablet
1,600 mg PO TID
Referrals:
Melanie Messer PA-C [Family Provider] -
Milo Titus MD [Active] - (Ortho)
Interventions
Interventions:
*Risk Screen - Suicide Last Done: 10/14/24 19:32
*General Assessment Last Done: 10/14/24 19:57
*Neglect/Abuse Screening Last Done: 10/14/24 19:32
*ED- Fall Risk Assessment Last Done: 10/14/24 19:57
*ED COVID-19 Vaccine History Last Done: 10/14/24 19:57
*Nursing Disposition Last Done: 10/14/24 22:53
ED-Musculoskeletal Assessment Last Done: 10/14/24 20:00
Discharge Date and Time
Discharge Date/Time: 10/14/24 22:56
Print Language: MONGOLIAN
[2024-10-14] MEDS: TYLENOL 1000 MG PO (22:38)
== END 2024-10-14 22:56 | disposition home or self-care (01) ==
LOC: EMR 19:26
PROVIDERS: EMERGENCY PHYSICIAN Emergency Medicine; FAMILY PHYSICIAN Physician Assistant Medical
DX: S52.502A Unspecified fracture of the lower end of left radius, initial encounter for closed fracture (principal); S52.612A Displaced fracture of left ulna styloid process, initial encounter for closed fracture; W01.0XXA Fall on same level from slipping, tripping and stumbling without subsequent striking against object, initial encounter; E11.22 Type 2 diabetes mellitus with diabetic chronic kidney disease; E78.00 Pure hypercholesterolemia, unspecified; G47.33 Obstructive sleep apnea (adult) (pediatric); I12.0 Hypertensive chronic kidney disease with stage 5 chronic kidney disease or end stage renal disease; N18.6 End stage renal disease; Z99.2 Dependence on renal dialysis; Z98.84 Bariatric surgery status; Z86.73 Personal history of transient ischemic attack (TIA), and cerebral infarction without residual deficits; Z79.01 Long term (current) use of anticoagulants
CPT/HCPCS: 29125; 99284; 70450; 73110; 73130

== ENCOUNTER 2024-10-20 06:11 | Day surgery (SDC) | payer OTHER, SELFPAY ==
[2024-10-20] VITALS (9 sets, daily range): BP systolic 107–130; BP diastolic 61–78; BMI 33.2
[2024-10-20] MEDS: TYLENOL 1000 MG PO (12:07)
[2024-10-20] MEDS: NORMOSOL-R/PLASMALYTE-A 1000 IV (12:10)
[2024-10-20 12:28] LABS: Hemoglobin 10.5 g/dL (12.0-16.0)
[2024-10-20 12:36] LABS: Blood Urea Nitrogen 72 mg/dl (7-17); Glucose 84 mg/dl (70-99)
[2024-10-20 13:20] LABS: Glucose - Point of Care 91 mg/dl (70-99)
== END 2024-10-20 15:11 | disposition home or self-care (01) ==
LOC: SDS 06:11
PROVIDERS: ATTENDING PHYSICIAN Orthopaedic Surgery Hand Surgery
DX: S52.502A Unspecified fracture of the lower end of left radius, initial encounter for closed fracture (principal); X58.XXXA Exposure to other specified factors, initial encounter
CPT/HCPCS: 25607; 82947; 82962; 84520; 85018; 93005; C1713

== ENCOUNTER 2025-02-08 16:30 | Emergency (ER) | payer OTHER, SELFPAY ==
[2025-02-08 16:49] VITALS: BP 125/90
--- NOTE | 2025-02-08 18:06 | ED.GENMED ---
History of Present Illness
General
Chief Complaint: Musculo-Skeletal Complaint
Source: patient
Exam Limitations: none
Time Seen by Provider: 02/08/25 17:44
Nursing documentation reviewed up to this point in time: agreed with
History of Present Illness
History of Present Illness:
64-year-old female with history as noted presents to the ER for evaluation of a right wrist injury. Patient reports that 2 days ago she was at [employer] class and she lost her balance and fell onto her bottom with her right hand outstretched behind
her. She injured her right wrist. She says she had immediate pain but was able to generally function and did not seek immediate care. Over the past 48 hours she has developed increased bruising and swelling in the wrist as well as stiffness with
range of motion which prompted her to come to the ER to be evaluated. She denies any other injuries from fall, specifically denies head strike. She is on Eliquis for history of DVT/PE.
Past History
Past History
ED Past Medical History: HTN, Hypercholesterolemia, NIDDM (befor Gastric bypass), Renal failure and Other (MICHAEL, Anemia, pulmonary embolism)
ED Past Surgical History: Bowel resection (Gastric bypass) and Gynecological (Total hysterectomy)
Social History
Tobacco: Non-smoker
Alcohol: None
Drug: None
Personal: Single
Living: alone
Employment: Employed
Review of Systems
Review of Systems
All Other Systems: ROS reviewed and negative except as documented in HPI and ROS
Musculoskeletal: Reports joint pain
Phy Exam
Physical Exam
Physical Exam:
General: Well appearing and non-toxic
HEENT: protecting airway
Neck: appears supple
CV: No evidence of cyanosis
Resp: No accessory muscle use
Abd: Non-distended
Extremities: Patient has swelling and bruising of the right wrist, tenderness over the distal radius, no focal snuffbox tenderness, no tenderness of the distal ulna; she is able to make a fist, flex and extend wrist as well as supinate and
pronate�she has pain with extreme flexion as well as with supination/pronation; she has no tenderness in the forearm, elbow, shoulder on the right; she has a strong right radial pulse; motor and sensory are intact radial, median, ulnar nerve
distribution right upper extremity
Neuro: Alert
Psych: Normal affect
Skin: Intact
Scores
Heart Failure Risk
Heart Failure Risk Score: Not Applicable
Heart Score for Chest Pain Patients
STEMI patient?: Not applicable
Withdrawal Assessment of Alcohol
Withdrawal Assessment Completed?: Not applicable
Course
Orders/Labs/Results
Orders:
Orders
02/08/25 16:53
CR Wrist - Right Min 3 Views Urgent
Comment:
Reason For Exam: fall
Vital Signs
Initial and Last Documented VS:
Initial Vital Signs
Temp Pulse Resp BP Pulse Ox
36.9 C 68 16 125/90 98
02/08/25 16:49 02/08/25 16:49 02/08/25 16:49 02/08/25 16:49 02/08/25 16:49
Last Documented Vital Signs
Temp Pulse Resp BP Pulse Ox
36.9 C 68 16 125/90 98
02/08/25 16:49 02/08/25 16:49 02/08/25 16:49 02/08/25 16:49 02/08/25 18:09
Procedures
Splinting/Sling Placement
Right Arm:
Procedure completed by: Romulo Garcia MD
Pre-splint extermity exam: neurovascular intact
Type of splint: sugar-tong
Splint material: fiberglass
Splint checked by provider?: Yes
Type of sling: sling fitted
Normal distal neurovascular exam?: Yes
MDM/Problems Addressed
Differential Diagnosis Includes:
Wrist sprain, wrist contusion, wrist fracture
MDM/Problems Addressed:
64-year-old female presents for evaluation of right wrist pain and swelling, bruising after a fall on outstretched hand Wednesday. No other injuries. Will check x-ray. Reassess after the above.
X-ray of the wrist read by me shows distal radius fracture essentially nondisplaced. Placed in a sugar-tong splint by me. Will plan for discharge with orthopedic referral.
Chronic conditions affecting care:
History of DVT/PE on Eliquis can complicate fall
*Radiology
Radiology exam reviewed: preliminary read by ED provider
*Pulse Oximetry
SaO2: 98
Oxygen Mode of Delivery: Room air
Patient hypoxic: no (98%)
*Critical Care Note
Total Time (30-74mins, 75-104mins- exclusive of procedures): Not Applicable
Data Reviewed
Source: patient and records
ED Attending Note
-
Portions of this chart may have been created with voice recognition software.� Occasional wrong word or��sound alike� substitutions may have occurred due to the inherent limitations of voice recognition software.
Discharge Plan
Departure
Patient Disposition: Home (Routine Discharge)
Date of Disposition: 02/08/25
Time of Disposition: 18:49
Patient with high blood pressure during this ER visit?: No
Discharge Problem:
Fracture of wrist
Instructions: Wrist Fracture (DC)
Prescriptions:
No Action
fluticasone propionate 1 SPRAY spray,suspension
1 spray intranasal DAILYPRN PRN (Reason: allergies/congestion)
cholecalciferol (vitamin D3) 1,000 UNITS tablet
2,000 units PO DAILY
metoprolol succinate 100 MG tablet extended release 24 hr
100 mg PO DAILY
calcium carbonate 600 MG tablet
600 mg PO DAILY
levothyroxine 50 mcg tablet
50 mcg PO DAILY
calcitriol 0.25 mcg capsule
0.5 mcg PO DAILY
rcwtuxksc-jctolrkj-xjs-hyalur [Move Free Ultra Triple Action] 40-5-3.3 mg Tablet
1 tab PO DAILY
Eliquis 5 MG tablet
5 mg PO BID
escitalopram oxalate [Lexapro] 20 mg Tablet
20 mg PO DAILY
multivitamin Tablet
1 tab PO DAILY
sevelamer carbonate [Renvela] 800 mg Tablet
1,600 mg PO TID
oxycodone-acetaminophen [Percocet] 5-325 mg tablet
1 tab PO Q6HPRN PRN (Reason: pain) Qty: 6 0RF
Referrals:
Jim Amos MD [Active, Orthopedics] - Call in 1-3 days for appt
Activity Restrictions/Additional Instructions:
Thank you for visiting the Emergency Department at [facility].
1. Please schedule a follow up appointment as directed. Call first thing tomorrow morning to make an appointment.
2. If indicated, please take your medications as instructed and indicated on discharge paperwork.
3. If any of your symptoms do not improve, or persist, or become more severe within 6-12 hours, please return to the emergency department for further care.
4. Please return to the emergency department if you develop a headache, neck pain/stiffness, fever greater than 100.4F, chest pain, shortness of breath, persistent nausea, vomiting, slurred speech, difficulty walking, numbness/tingling, weakness,
signs of infection or any other symptoms that are worrisome to you.
Please call [phone] if you have any questions.
Interventions
Interventions:
*Risk Screen - Suicide Last Done: 02/08/25 16:49
*General Assessment Last Done: 02/08/25 16:49
*Neglect/Abuse Screening Last Done: 02/08/25 16:49
*ED- Fall Risk Assessment Last Done: 02/08/25 16:49
*ED COVID-19 Vaccine History Last Done: 02/08/25 16:49
ED-Musculoskeletal Assessment Last Done: 02/08/25 18:31
Discharge Date and Time
Print Language: JAPANESE
== END 2025-02-08 19:02 | disposition home or self-care (01) ==
LOC: EMR 16:30
PROVIDERS: EMERGENCY PHYSICIAN Emergency Medicine; FAMILY PHYSICIAN Physician Assistant Medical
DX: S52.591A Other fractures of lower end of right radius, initial encounter for closed fracture (principal); W18.39XA Other fall on same level, initial encounter; Y93.41 Activity, dancing; E78.00 Pure hypercholesterolemia, unspecified; G47.33 Obstructive sleep apnea (adult) (pediatric); I10 Essential (primary) hypertension; Z86.711 Personal history of pulmonary embolism; Z79.01 Long term (current) use of anticoagulants; Z98.84 Bariatric surgery status
CPT/HCPCS: 29125; 99283; 73110

== ENCOUNTER → 2025-04-06 08:04 | Outpatient (REF) | payer OTHER, SELFPAY | LOC: HWRAD 08:04 | PROVIDERS: ATTENDING PHYSICIAN Physician Assistant Medical | DX: Z87.81 Personal history of (healed) traumatic fracture (principal); M85.80 Other specified disorders of bone density and structure, unspecified site | CPT/HCPCS: 77080 ==

== ENCOUNTER → 2025-05-18 09:11 | Outpatient (REF) | payer OTHER, SELFPAY | LOC: HWWDC 09:11 | PROVIDERS: ATTENDING PHYSICIAN Transplant Surgery; FAMILY PHYSICIAN Physician Assistant Medical | DX: N18.6 End stage renal disease (principal); Z12.31 Encounter for screening mammogram for malignant neoplasm of breast | CPT/HCPCS: 77063; 77067 ==

== ENCOUNTER → 2025-05-21 07:07 | Outpatient (REF) | payer OTHER, SELFPAY | LOC: HWRCS 07:07 | PROVIDERS: FAMILY PHYSICIAN Physician Assistant Medical | DX: N18.6 End stage renal disease (principal) | CPT/HCPCS: 93306 ==

== ENCOUNTER → 2025-05-24 12:06 | Outpatient (REF) | payer OTHER, SELFPAY | LOC: HWRCS 12:06 | PROVIDERS: FAMILY PHYSICIAN Physician Assistant Medical | DX: N18.6 End stage renal disease (principal) | CPT/HCPCS: 78452; 93017; A9500; J2785 ==